=== PATIENT | male | born 1955 | race Caucasian/White ===

== ENCOUNTER 2020-03-19 12:10 | Inpatient (IN) ==
[2020-03-19] MEDS ORDERED: fentaNYL citrate 100 MCG/2 ML VIAL IV STA (12:26)
[2020-03-19] MEDS ORDERED: SODIUM CHLORIDE 0.9% 1000ML 1,000 ML IV ONE (12:26)
[2020-03-19] MEDS ORDERED: NiCARDipine HCL INJ 2.5 MG/ML 10 ML AMP ONE (12:27)
[2020-03-19] MEDS ORDERED: HEPARIN (PORCINE) 1000 UNIT/ML 10 ML (CATH LAB USE ONLY) ONE ×2 (12:27→13:18)
[2020-03-19] MEDS ORDERED: fentaNYL citrate 100 MCG/2 ML VIAL ONE ×2 (12:27)
[2020-03-19] MEDS ORDERED: MIDAZOLAM HCL 1 MG/ML 2ML VIAL ONE ×3 (12:27→13:55)
[2020-03-19] MEDS ORDERED: NITROGLYCERIN/D5W 100MCG/ML 20ML SYR ONE (12:28)
--- NOTE | 2020-03-19 12:30 | Emergency Department Note ---
Impression & Plan STEMI (ST elevation myocardial infarction), Complete heart block ED Provider Note NAME: DELORIS COREA AGE: 65 SEX: M : 1955 ARRIVES VIA: Walk-In INFORMANT: Patient ED PROVIDER(S): Feliciano Hall DO CHIEF COMPLAINT: Chest pain HPI:Patient is a 65-year-old male who presents the ER for chest pain which started around 11:45 AM. He recently got home and was sitting on his couch. He describes it as midsternal associated with pressure/tightness. He was short of breath. There is no radiation. No belly pain. Denies any cough or fevers. He has never had any exertional chest pain before. He does have a history of hypertension and is a smoker. He is set to get an endoscopy tomorrow. No exposure to anyone with coronavirus. ROS: See above HPI for pertinent positives & negatives. A total of 10 systems reviewed and were otherwise negative. PAST MEDICAL HISTORY:See Below PAST SURGICAL HISTORY:See Below FAMILY HISTORY:See Below SOCIAL HISTORY:See Below HOME MEDICATIONS:See Below ALLERGIES:See Below VITALS:See Below PHYSICAL EXAMINATION: GENERAL: Ill appearing, diaphoretic EYE EXAM: normal conjunctiva. OROPHARYNX: mucous membranes are moist NECK: supple, no nuchal rigidity, no adenopathy, non-tender LUNGS: Clear to auscultation. Normal chest wall mechanics HEART: no murmurs, S1 normal and S2 normal ABDOMEN: abdomen soft, non-tender, normo-active bowel sounds, no masses, no rebound or guarding. BACK: Back is symmetrical on inspection and there is no deformity, no midline tenderness, no CVA tenderness. SKIN: no rashes and no bruising UPPER EXTREMITIES: upper extremities are grossly normal. LOWER EXTREMITIES: No pitting edema. NEURO EXAM: Normal sensorium, cranial nerves II-XII grossly intact, normal speech, no gross weakness of arms, no gross weakness of legs. MEDICAL DECISION MAKING: Patient is a 65-year-old male who presents the ER for midsternal chest tightness. He was diaphoretic on exam. Initial EKG showed ST depressions and nonspecific ST wave changes. Repeat was obtained 5 minutes later which showed a STEMI. He had very taken 2 aspirins prior to arrival.Blood pressure was about 100. STEMIAlert was called. banana handler was at bedside and at this point patient dropped his pressures and went into third-degree heart block. He was placed on dopamine. He was taken emergently to [facility]. We did give him a bolus of normal saline while in the ER. He did not receive any nitro or fentanyl. Triage Nursing notes reviewed. Prior medical records reviewed Vital Signs: reviewed and remarkable for no significant abnormalities Differential diagnosis: Differential diagnoses includes but is not limited to acute coronary syndrome, myocardial infarction, pericarditis, pulmonary embolus, aortic dissection, pneumonia, pneumothorax, musculoskeletal, shingles, esophageal. ER treatment provided: See below Diagnostics interpreted by me: ECG: Sinus rhythm rate of [address] wave changes in the inferior leads with ST depression in high lateral leads No PVCs Normal QTC EKG #2 Sinus rhythm rate of 64 ST segment elevation in the inferior leads with depression in the high lateral leads PVC Normal QTC Cardiac Monitoring: An order was placed for continuous cardiac monitoring. The monitor shows a rate of 54 with Sinus rhythm. Laboratory studies: As stated above and show below. Imaging studies: Portable AP upright 1 view of the chest shows no focal infiltrate or pneumothorax Consultation(s): D/w Dr. Waqar Etienne ED COURSE: Procedures: none Critical Care: I have personally spent 31 minutes of critical care time in the direct managem ent of this patient. This includes bedside care, interpretation of diagnostic studies, and testing, discussion with consultants, patient, and family members, and other required patient management activities. This 31 minutes is in excess of all separately billable procedures. Past Med/Surg History Medical History (Updated 03/19/20 @ 18:24 by Feliciano Hall DO) Cataract, bilateral Cirrhosis Current smoker (Acute) Dyslipidemia (Acute) Hepatitis C Hypertension Psoriasis Thrombocytopenia Surgical History (Updated 10/04/19 @ 08:24 by Arpit Alvarado DO) History of cataract surgery History of tonsillectomy History of tooth extraction wisdom teeth Social History (Updated 10/20/19 @ 08:49 by Anitra Foster) Preferred Language: Belarusian Communication Ability: Effective Visual Impairment: Diminished Hearing Ability: Normal Mulcher Operator Required: No Beliefs That Will Affect Care: None marital status: Single Current Living Situation: Significant Other Current Living Situation Comment: lives with s/o current occupational status: retired Other Information That Helps Us Care for You: No Feels Safe at Home: Yes Safety Concerns: Feels Safe At This Time Smoking Status: Current every day smoker Tobacco Type: cigarettes ; Cigarettes Per Day: 10 ; Second Hand Exposure: No ; Tobacco Cessation Education Requested by Patient: No Hx Alcohol Use: Yes Alcohol type: beer Hx Substance Use: No Childhood Exposure to Second-Hand Smoke: No caffeine: Yes Dental Care, Regularly: No Physical Activity Frequency: Daily Seatbelt Use: always Sunscreen Use: No Allergies Allergies Allergy/AdvReac Type Severity Reaction Status Date / Time amoxicillin Allergy Mild Rash Verified 02/10/20 09:01 doxycycline Allergy Mild Rash Verified 02/10/20 09:01 Home Meds Home Medications Medication Instructions Recorded Confirmed triamcinolone acetonide 0.5 % 1 appln TOP BID PRN gm 02/10/20 topical cream Previous Rx's Medication Instructions Recorded amlodipine 10 mg tablet 10 mg PO DAILY #90 tab 08/22/19 albuterol sulfate 90 mcg/actuation 2 puffs INH QID PRN #18 gm 10/04/19 aerosol inhaler lisinopril 20 1 tab PO DAILY #90 tab 10/04/19 mg-hydrochlorothiazide 25 mg tablet cholecalciferol (vitamin D3) 1,250 1,250 mcg PO WEEKLY #13 cap 10/24/19 mcg (50,000 unit) capsule lisinopril 10 mg tablet 10 mg PO DAILY #30 tab 02/10/20 Results & Data (ED) Vital Signs Vital Signs - 24 hr 03/19/20 12:12 03/19/20 12:30 Temperature 36.8 C Temperature Source Oral Pulse Rate 70 Respiratory Rate 24 Respiratory Effort / Characteristics Non-Labored Spontaneous Respiratory Depth Normal Respiratory Pattern Regular Blood Pressure 102/63 Blood Pressure Mean 76 Pulse Oximetry 99 99 Oxygen Delivery Method Room Air Room Air Sepsis Recent Fever Within 48 Hours No Sepsis Action Taken by Nursing No Action Required Laboratory Data Result diagrams: 03/19/20 12:21 03/19/20 12:21 Lab Results 03/19/20 03/19/20 03/19/20 Range/Units 12:21 12:21 12:21 WBC 9.43 (4.8-10.8) K/uL RBC 4.40 L (4.7-6.1) M/uL Hgb 15.2 (14.0-18.0) g/dL POC Hgb (14.0-18.0) g/dl Hct 43.4 (42-52) % POC Hct (42-52) % MCV 98.6 (80-100) fL MCH 34.5 H (25-34) pg MCHC 35.0 (32-36) g/dL RDW Std Deviation 46.9 H (36.4-46.3) fL RDW Coeff of Cj 13.0 (11.5-14.5) % Plt Count 267 (130-400) K/uL MPV 9.7 (7.4-10.4) fL Immature Gran % (Auto) 0.4 % Neut % (Auto) 54.6 % Lymph % (Auto) 29.8 % [place] % (Auto) 12.5 % Eos % (Auto) 2.2 % Baso % (Auto) 0.5 % Neut # (Auto) 5.14 (1.4-6.5) K/uL Lymph # (Auto) 2.81 (1.2-3.4) K/uL [place] # (Auto) 1.18 H (0.11-0.59) K/uL Eos # (Auto) 0.21 (0-0.5) K/uL Baso # (Auto) 0.05 (0-0.2) K/uL Immature Gran # (Auto) 0.04 H (0.00-0.02) K/uL PT 11.2 (9.0-12.0) Seconds INR 1.1 (0.9-1.1) APTT 22.5 (21.0-31.0) Seconds PTT Ratio 0.8 Activ Coag Time Kaolin (94-140) SECONDS POC pH (7.35-7.45) POC pCO2 (35-46) mmHg POC pO2 (80-95) mmHg POC HCO3 (19-24) usha/L POC Total CO2 (24-31) mmol/L POC Base Excess (-9-1.8) usha/L POC ABG O2 Sat (90-95) % POC Sodium (135-144) mmol/L Sodium 133 L (136-145) mmol/L POC Potassium (3.3-5.0) mmol/L Potassium 3.1 L (3.5-5.1) mmol/L Chloride 100 (98-107) mmol/L Carbon Dioxide 22 (21-32) mmol/L Anion Gap 11.0 (3-11) BUN 9 (7-18) mg/dl Creatinine 0.95 (0.6-1.4) mg/dl Est Cr Clr Drug Dosing 80.4 ml/min Est GFR ( Amer) 95.6 Est GFR (Non-Af Amer) 82.5 BUN/Creatinine Ratio 9.9 L (10-20) Glucose 132 H (70-99) mg/dl Calcium 9.4 (8.5-10.1) mg/dl Total Bilirubin 0.9 (0.2-1) mg/dl AST 80 H (15-37) U/L ALT 71 (12-78) U/L Alkaline Phosphatase 139 H (45-117) U/L Troponin I 0.068 H* (0-0.045) ng/ml Total Protein 8.1 (6.4-8.2) gm/dl Albumin 3.7 (3.4-5.0) gm/dl Globulin 4.4 H (2.5-4.0) gm/dl Albumin/Globulin Ratio 0.8 L (0.9-2) Lipase 107 (73-393) U/L 03/19/20 03/19/20 03/19/20 Range/Units 13:14 13:16 13:45 WBC (4.8-10.8) K/uL RBC (4.7-6.1) M/uL Hgb (14.0-18.0) g/dL POC Hgb 13.9 L (14.0-18.0) g/dl Hct (42-52) % POC Hct 41 L (42-52) % MCV (80-100) fL MCH (25-34) pg MCHC (32-36) g/dL RDW Std Deviation (36.4-46.3) fL RDW Coeff of Cj (11.5-14.5) % Plt Count (130-400) K/uL MPV (7.4-10.4) fL Immature Gran % (Auto) % Neut % (Auto) % Lymph % (Auto) % [place] % (Auto) % Eos % (Auto) % Baso % (Auto) % Neut # (Auto) (1.4-6.5) K/uL Lymph # (Auto) (1.2-3.4) K/uL [place] # (Auto) (0.11-0.59) K/uL Eos # (Auto) (0-0.5) K/uL Baso # (Auto) (0-0.2) K/uL Immature Gran # (Auto) (0.00-0.02) K/uL PT (9.0-12.0) Seconds INR (0.9-1.1) APTT (21.0-31.0) Seconds PTT Ratio Activ Coag Time Kaolin 224 H 307 H (94-140) SECONDS POC pH 7.41 (7.35-7.45) POC pCO2 32 L (35-46) mmHg POC pO2 159 H (80-95) mmHg POC HCO3 21 (19-24) usha/L POC Total CO2 22 L (24-31) mmol/L POC Base Excess -4.0 (-9-1.8) usha/L POC ABG O2 Sat 99.0 H (90-95) % POC Sodium 131 L (135-144) mmol/L Sodium (136-145) mmol/L POC Potassium 2.6 L (3.3-5.0) mmol/L Potassium (3.5-5.1) mmol/L Chloride (98-107) mmol/L Carbon Dioxide (21-32) mmol/L Anion Gap (3-11) BUN (7-18) mg/dl Creatinine (0.6-1.4) mg/dl Est Cr Clr Drug Dosing ml/min Est GFR ( Amer) Est GFR (Non-Af Amer) BUN/Creatinine Ratio (10-20) Glucose (70-99) mg/dl Calcium (8.5-10.1) mg/dl Total Bilirubin (0.2-1) mg/dl AST (15-37) U/L ALT (12-78) U/L Alkaline Phosphatase (45-117) U/L Troponin I (0-0.045) ng/ml Total Protein (6.4-8.2) gm/dl Albumin (3.4-5.0) gm/dl Globulin (2.5-4.0) gm/dl Albumin/Globulin Ratio (0.9-2) Lipase (73-393) U/L Administered Medications Sodium Chloride (Nss 1000ml) 1,000 mls @ 100 mls/hr IV .Q10H ELIZABET Stop: 03/20/20 00:59 Last Admin: 03/19/20 16:43 Dose: 100 mls/hr Documented by: [id number] Discontinued Medications Amiodarone HCl/Dextrose (Nexterone / D5w ([facility] Use Only)) Confirm Administered Dose 360 mg .ROUTE .STK-MED ONE Stop: 03/19/20 13:46 Last Admin: 03/19/20 16:40 Dose: Not Given Documented by: [id number] Amiodarone HCl/Dextrose (Nexterone / D5w ([facility] Use Only)) Confirm Administered Dose 150 mg .ROUTE .STK-MED ONE Stop: 03/19/20 13:46 Last Admin: 03/19/20 16:40 Dose: Not Given Documented by: [id number] Atropine Sulfate (Atropine Sulfate) Confirm Administered Dose 1 mg IV .STK-MED ONE Stop: 03/19/20 12:48 Last Admin: 03/19/20 16:39 Dose: Not Given Documented by: [id number] Dopamine HCl/Dextrose (Dopamine / D5w) Confirm Administered Dose 400 mg IV .STK- MED ONE Stop: 03/19/20 12:34 Last Admin: 03/19/20 16:39 Dose: Not Given Documented by: [id number] Eptifibatide (Integrilin ([facility] Use Only)) Confirm Administered Dose 20 mg IV .STK-MED ONE Stop: 03/19/20 13:22 Last Admin: 03/19/20 16:40 Dose: Not Given Documented by: [id number] Eptifibatide (Integrilin ([facility] Use Only)) Confirm Administered Dose 75 mg .ROUTE .STK-MED ONE Stop: 03/19/20 13:22 Last Admin: 03/19/20 16:40 Dose: Not Given Documented by: [id number] Fentanyl Citrate (Fentanyl Citrate) 25 mcg IV NOW STA Stop: 03/19/20 12:27 Last Admin: 03/19/20 12:44 Dose: Not Given Documented by: [id number] Fentanyl Citrate (Fentanyl Citrate) Confirm Administered Dose 100 mcg .ROUTE .STK-MED ONE Stop: 03/19/20 12:28 Last Admin: 03/19/20 16:38 Dose: Not Given Documented by: [id number] Fentanyl Citrate (Fentanyl Citrate) Confirm Administered Dose 100 mcg .ROUTE .STK-MED ONE Stop: 03/19/20 12:28 Last Admin: 03/19/20 16:39 Dose: Not Given Documented by: [id number] Heparin Sodium (Porcine) (Heparin Iv Bolus ([facility] Use Only)) Confirm Administered Dose 10,000 units .ROUTE .STK-MED ONE Stop: 03/19/20 12:28 Last Admin: 03/19/20 16:39 Dose: Not Given Documented by: [id number] Heparin Sodium (Porcine) (Heparin Iv Bolus ([facility] Use Only)) Confirm Administered Dose 10,000 units .ROUTE .STK-MED ONE Stop: 03/19/20 13:19 Last Admin: 03/19/20 16:40 Dose: Not Given Documented by: [id number] Heparin Sodium/Sodium Chloride (Heparin/Nss 1000 Unit/500ml Flush Bag) Confirm Administered Dose 3,000 units IV .STK-MED ONE Stop: 03/19/20 12:28 Last Admin: 03/19/20 16:39 Dose: Not Given Documented by: [id number] Sodium Chloride (Nss 1000ml) 1,000 mls @ 999 mls/hr IV .Q1H1M ONE Stop: 03/19/20 13:26 Last Infusion: 03/19/20 16:48 Dose: 0 mls/hr Documented by: [id number] Admin: 03/19/20 12:44 Dose: 999 mls/hr Documented by: [id number] Midazolam HCl (Versed) Confirm Administered Dose 2 mg .ROUTE .STK-MED ONE Stop: 03/19/20 12:28 Last Admin: 03/19/20 16:39 Dose: Not Given Documented by: [id number] Midazolam HCl (Versed) Confirm Administered Dose 2 mg .ROUTE .STK-MED ONE Stop: 03/19/20 13:40 Last Admin: 03/19/20 16:40 Dose: Not Given Documented by: [id number] Midazolam HCl (Versed) Confirm Administered Dose 2 mg .ROUTE .STK-MED ONE Stop: 03/19/20 13:56 Last Admin: 03/19/20 16:40 Dose: Not Given Documented by: [id number] Nicardipine HCl (Cardene) Confirm Administered Dose 25 mg .ROUTE .STK-MED ONE Stop: 03/19/20 12:28 Last Admin: 03/19/20 16:38 Dose: Not Given Documented by: [id number] Nitroglycerin/Dextrose (Nitroglycerin/D5w 100 Mcg/Ml 20ml Syringe) Confirm Administered Dose 2,000 mcg .ROUTE .STK-MED ONE Stop: 03/19/20 12:29 Last Admin: 03/19/20 16:39 Dose: Not Given Documented by: [id number] Norepinephrine Bitartrate (Levophed ([facility] Use Only)) Confirm Administered Dose 8 mg .ROUTE .STK-MED ONE Stop: 03/19/20 13:57 Last Admin: 03/19/20 16:41 Dose: Not Given Documented by: [id number] Norepinephrine Bitartrate (Levophed ([facility] Use Only)) Confirm Administered Dose 4 mg .ROUTE .STK-MED ONE Stop: 03/19/20 13:57 Last Admin: 03/19/20 16:41 Dose: Not Given Documented by: [id number] Ondansetron HCl (Zofran) Confirm Administered Dose 4 mg .ROUTE .STK-MED ONE Stop: 03/19/20 12:48 Last Admin: 03/19/20 16:40 Dose: Not Given Documented by: [id number] Ticagrelor (Brilinta) Confirm Administered Dose 180 mg PO .STK-MED ONE Stop: 03/19/20 14:40 Last Admin: 03/19/20 16:43 Dose: 180 mg Documented by: [id number] Discharge Plan Visit Data *Final* Discharge Date/Time: 03/19/20 12:38 Chief Complaint: Cardiac Assessment Stated Complaint: CHEST PAIN,SWEATING,WEAKNESS,SOB ED Provider: Feliciano Hall Discharge Problem: STEMI (ST elevation myocardial infarction), Complete heart block Patient Disposition: Still a Patient Discharge Instructions Interventions: ED Discharge Assessment Last Done: 03/19/20 12:38 Discharge Problem: STEMI (ST elevation myocardial infarction) Qualifiers: Involved coronary artery: unspecified coronary artery Qualified Code(s): I21.3 - ST elevation (STEMI) myocardial infarction of unspecified site
[2020-03-19] MEDS ORDERED: DOPamine 400MG / 250ML D5W IV ONE (12:33)
[2020-03-19 12:42] LABS: Basophils # (auto) 0.05 K/uL (0-0.2); Basophils % (auto) 0.5 %; Eosinophils # (auto) 0.21 K/uL (0-0.5); Eosinophils % (auto) 2.2 %; Hematocrit (blood only) 43.4 % (42-52); Hemoglobin 15.2 g/dL (14.0-18.0); Immature Granulocytes # (auto) 0.04 K/uL (0.00-0.02); Immature Granulocytes % (auto) 0.4 %; Lymphocytes # (auto) 2.81 K/uL (1.2-3.4); Lymphocytes % (auto) 29.8 %; Mean Corpuscular Hemoglobin 34.5 pg (25-34); Mean Corpuscular Volume 98.6 fL (80-100); Mean Platelet Volume 9.7 fL (7.4-10.4); Monocytes # (auto) 1.18 K/uL (0.11-0.59); Monocytes % (auto) 12.5 %; Neutrophils # (auto) 5.14 K/uL (1.4-6.5); Neutrophils % (auto) 54.6 %; Platelet Count 267 K/uL (130-400); RDW Standard Deviation 46.9 fL (36.4-46.3); White Blood Count 9.43 K/uL (4.8-10.8)
[2020-03-19] MEDS ORDERED: ONDANSETRON INJ 2 MG/ML 2 ML VIAL ONE (12:47)
[2020-03-19] MEDS ORDERED: ATROPINE SULFATE 0.1 MG/ML 10ML SYR IV ONE (12:47)
[2020-03-19 12:52] LABS: INR 1.1 (0.9-1.1); Partial Thromboplastin Ratio 0.8; Partial Thromboplastin Time 22.5 Seconds (21.0-31.0); Prothrombin Time 11.2 Seconds (9.0-12.0)
[2020-03-19 13:00] LABS: Albumin Level 3.7 gm/dl (3.4-5.0); BUN Creatinine Ratio 9.9 (10-20); Calcium 9.4 mg/dl (8.5-10.1); Creatinine Clr Calc Pharmacy 80.4 ml/min; Est GFR (African American) 95.6; Est GFR (Non-African American) 82.5; Potassium 3.1 mmol/L (3.5-5.1)
--- NOTE | 2020-03-19 13:03 | XRay Report ---
XR chest 1V portable CLINICAL HISTORY: Chest Pain COMPARISON STUDY: Chest radiograph and chest CT September 04, 2018. FINDINGS: Lung volumes are normal. Lungs are clear. There is no pneumothorax or pleural effusion. Car diac size is stable. Mediastinal contours are normal. There is no evidence for pulmonary edema. IMPRESSION: No acute cardiopulmonary findings. ACT 112: Negative or not required by law. Electronically signed by: Herman King M.D. 03/19/2020 1:02 PM
[2020-03-19 13:11] LABS: Albumin Globulin Ratio 0.8 (0.9-2); Bilirubin,Total 0.9 mg/dl (0.2-1); Globulin 4.4 gm/dl (2.5-4.0); Total Protein 8.1 gm/dl (6.4-8.2); Troponin I 0.068 ng/ml (0-0.045)
[2020-03-19] MEDS ORDERED: EPTIFIBATIDE 0.75 MG/ML 75MG VIAL (CATH LAB USE ONLY) ONE (13:21)
[2020-03-19] MEDS ORDERED: EPTIFIBATIDE 2 MG/ML 10 ML VIAL (CATH LAB USE ONLY) IV ONE (13:21)
[2020-03-19] MEDS ORDERED: AMIODARONE 150MG / 100ML D5W (CATH LAB USE ONLY) ONE (13:45)
[2020-03-19] MEDS ORDERED: AMIODARONE 360MG / 200ML D5W (CATH LAB USE ONLY) ONE (13:45)
[2020-03-19] MEDS ORDERED: NOREPINEPHRINE BITARTRATE 1 MG/ML 4 ML VIAL (CATH LAB USE ONLY) ONE ×2 (13:56)
[2020-03-19] MEDS ORDERED: TICAGRELOR 90 MG TAB PO ONE (14:39)
--- NOTE | 2020-03-19 14:43 | Cardiology Consultation ---
Date of Consultation March 19, 2020 Assessment & Plan (1) STEMI (ST elevation myocardial infarction): Presentation consistent with inferior STEMI and recommend proceeding with emergent cardiac catheterization and likely primary PCI. No apparent contraindications to procedure. Discussed risks, benefits, alternatives of procedure with patient and they are willing to proceed. Further recommendations pending findings of coronary angiography. History of Present Illness Attending Physician: Jose Etienne MD History of Present Illness 65-year-old man here with acute chest pain and ECG concerning for acute WI. Patient seen emergently in the ED after heart alert activated after second EKG in ED. Past cardiac history.. Cardiac risk factors include hypertension, dyslipidemia and tobacco abuse. Other medical issues include chronic hepatitis C with cirrhosis and prior thrombocytopenia. This morning reported feeling generally unwell, fatigued with chest tightness for about half an hour prior to arrival. While emergency department chest tightness became significantly worse associated with diaphoresis and nausea initial EKG showed normal sinus rhythm with no significant ST abnormalities. With worsening chest pain developed inferior ST elevations. Became developed sinus bradycardia and hypotensive to the 70s. Receive IV fluid bolus, started on dopamine in the ED. Allergies Allergy/AdvReac Type Severity Reaction Status Date / Time amoxicillin Allergy Mild Rash Verified 02/10/20 09:01 doxycycline Allergy Mild Rash Verified 02/10/20 09:01 Home Medications Home Medications Medication Instructions Recorded Confirmed Type amlodipine 10 mg tablet 10 mg PO DAILY #90 tab 08/22/19 02/10/20 Rx albuterol sulfate 90 mcg/actuation 2 puffs INH QID PRN #18 gm 10/04/19 02/10/20 Rx aerosol inhaler lisinopril 20 1 tab PO DAILY #90 tab 10/04/19 02/10/20 Rx mg-hydrochlorothiazide 25 mg tablet cholecalciferol (vitamin D3) 1,250 1,250 mcg PO WEEKLY #13 cap 10/24/19 02/10/20 Rx mcg (50,000 unit) capsule lisinopril 10 mg tablet 10 mg PO DAILY #30 tab 02/10/20 02/10/20 Rx triamcinolone acetonide 0.5 % 1 appln TOP BID PRN gm 02/10/20 History topical cream Patient History Medical History (Updated 03/19/20 @ 15:00 by Michael Etienne MD) Cataract, bilateral Cirrhosis Current smoker (Acute) Dyslipidemia (Acute) Hepatitis C Hypertension Psoriasis Thrombocytopenia Surgical History (Updated 10/04/19 @ 08:24 by Arpit Alvarado, DO) History of cataract surgery History of tonsillectomy History of tooth extraction wisdom teeth Social History (Updated 10/20/19 @ 08:49 by Anitra Foster) Preferred Language: Sinhala Communication Ability: Effective Visual Impairment: Diminished Hearing Ability: Normal 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 Required: No Beliefs That Will Affect Care: None marital status: Single Current Living Situation: Significant Other Current Living Situation Comment: lives with s/o current occupational status: retired Feels Safe at Home: Yes Smoking Status: Current every day smoker Tobacco Type: cigarettes ; Cigarettes Per Day: 10 ; Second Hand Exposure: No ; Hx Alcohol Use: Yes Alcohol type: beer Hx Substance Use: No Childhood Exposure to Second-Hand Smoke: No caffeine: Yes Dental Care, Regularly: No Physical Activity Frequency: Daily Seatbelt Use: always Sunscreen Use: No Review of Systems Review of Systems: Not obtained in the setting of emergent situation Physical Exam Physical Exam: General: Uncomfortable, diaphoretic HEENT: Sclerae anicteric, mucous membranes moist Lungs: Coarse breath sounds Cardiac: Bradycardic, regular, no murmurs Abdomen: Soft, nontende Extremities: Warm, well perfused, no edema. 2+ radial pulses Neuro: Nonfocal Psych: Alert orient x3, normal affect and mood Results & Data ([facility]) Vital Signs (Past 12 Hours) Vital Signs Temp Pulse Resp BP Pulse Ox 03/19/20 12:30 99 03/19/20 12:12 98.2 F 70 24 102/63 99 PG Care Time/CCT Total # of Minutes Spent Total Time Spent with Patient: Total time spent is greater than 50% in coordination of care (as documented) at patient's floor/unit and/or counseling patient: Coding Level of Care Code 03750 Inpt Consult Level 5 Diagnoses STEMI (ST elevation myocardial infarction) I21.3
--- NOTE | 2020-03-19 14:43 | Pre Anesthesia Assessment ---
Date of Service March 19, 2020 Pre Sedation Assessment Vital Signs Temp Pulse Resp BP Pulse Ox 03/19/20 12:30 99 03/19/20 12:12 98.2 F 70 24 102/63 99 Cardiovascular RRR, no murmur, no edema Respiratory normal respiratory effort, lungs clear to auscultation Pre-Sedation Airway Assessment Smoking Status: Current every day smoker Hx Sleep Apnea: No Hx Difficult Intubation: No Short, Thick Neck: No Thyromental Distance: > or= 3.5 Finger Breadths Oral Cavity: + WNL Mallampati Class: III ASA: ASA4 Procedure Planning Contraindications for Sedation: none Current Medications Reviewed: Yes Notes The planned sedation has been discussed with the patient. Informed Consent was obtained. I have identified the patient, determined the appropriateness of sedation and have assessed the patient immediately prior to the procedure. All medicine(s) and interventions are by my order.
--- NOTE | 2020-03-19 14:44 | Post Anesthesia Assessment ---
Date of Service March 19, 2020 Post Sedation Assessment Vital Signs Temp Pulse Resp BP Pulse Ox 03/19/20 12:30 99 03/19/20 12:12 98.2 F 70 24 102/63 99 Recovery Score Activity: Moves 4 extremities Respiration: Deep Breath/Cough Circulation: +/-20% PreAnes Value Consciousness: Fully Awake Oxygen Saturation: O2 needed for >90% Discharge Sedation Level of Care: Fast Track Phase II Post Sedation Plan On clinical assessment, the patient appears to have tolerated the sedation without complications. Patient is recovering as anticipated. Patient will continue to be monitored by nursing and may be discharged when sedation discharge criteria are met per below protocol. Upon Completions of procedure up to 15 minutes continue every 5 minute vital signs and the P.A.R. score; then discharge to a Phase I or Fast Track to Phase II per the following guidelines: * Discharge Patient to appropriate Phase II area if PAR is 8 or greater or return to pre- procedure baseline. The post - procedure orders will be as directed. * If PAR score is less than 8 or not return to pre-procedure baseline then patient will follow Phase I monitoring till PAR is reached for Phase II. The Phase I may be done in procedure room or may call to secure a Phase I area. * If naloxone or flumazenil are used for reversal, hold in Phase I for continued monitoring from when last reversal dose was given for a minimum of 60 minutes or longer pending the nurse and/or physician discretion of patient condition before discharge to Phase II. Please call the Sedation Physician to re-evaluate and complete post-note for discharge to Phase II area. Do NOT discharge from procedure sedation or Phase 1 until post- sedation evaluation note is complete by procedure /sedation MD Sedation Discharge Instructions to be given to the patient at discharge to home.
[2020-03-19] MEDS ORDERED: ACETAMINOPHEN 325 MG TAB PO PRN (14:48)
[2020-03-19] MEDS ORDERED: ATROPINE SULFATE 0.1 MG/ML 10ML SYR IV PRN (14:48)
[2020-03-19] MEDS ORDERED: ONDANSETRON INJ 2 MG/ML 2 ML VIAL IV PRN (14:48)
[2020-03-19] MEDS ORDERED: NITROGLYCERIN SL 0.4 MG/TAB TAB SL PRN (14:48)
[2020-03-19] MEDS ORDERED: ICU PROTOCOL FOR HYPERGLYCEMIA PRN ×2 (14:48→15:07)
--- NOTE | 2020-03-19 14:53 | Electrocardiogram Report ---
Test Reason : Blood Pressure : / mmHG Vent. Rate : 064 BPM Atrial Rate : 064 BPM P-R Int : 256 ms QRS Dur : 094 ms QT Int : 438 ms P-R-T Axes : 047 051 078 degrees QTc Int : 451 ms Poor data quality, interpretation may be adversely affected Sinus rhythm with 1st degree A-V block with occasional Premature ventricular complexes Inferior injury pattern Acute Inferior infarct Consider right ventricular involvement in acute inferior infarct Abnormal ECG When compared with ECG of 19-MAR-2020 12:17, Premature ventricular complexes are now Present [place] interval has increased Acute Inferior infarct is now Present Confirmed by Adalid Oconnor ([id number]) on 03/20/2020 7:55:15 AM Also confirmed by Adalid Oconnor ([id number]), clinical editor Elham Garrido ([id number]) on 03/20/2020 8:45:41 AM Also confirmed by Adalid Oconnor ([id number]), clinical editor Elham Garrido ([id number]) on 03/20/2020 8:46:59 AM Referred By: Michael Etienne Confirmed By:Adalid Oconnor
[2020-03-19] MEDS ORDERED: SODIUM CHLORIDE 0.9% 1000ML 1,000 ML IV SCH (15:00)
[2020-03-19 15:02] LABS: iSTAT Arterial Blood Gas HCO3 21 meg/L (19-24); iSTAT Arterial Blood Gas pCO2 32 mmHg (35-46); iSTAT Arterial Blood Gas pH 7.41 (7.35-7.45); iSTAT Arterial Blood Gas pO2 159 mmHg (80-95); iSTAT Carbon Dioxide 22 mmol/L (24-31); iSTAT Hematocrit 41 % (42-52); iSTAT Hemoglobin 13.9 g/dl (14.0-18.0); iSTAT Potassium 2.6 mmol/L (3.3-5.0); iSTAT Sodium 131 mmol/L (135-144)
--- NOTE | 2020-03-19 15:10 | History & Physical Report ---
Date of Service The left groin access was on the left not right as documented below March 19, 2020 Assessment & Plan (1) STEMI (ST elevation myocardial infarction): Patient presented with acute chest pain ST elevations were noted in the inferior leads, patient taken to the heart catheterization lab where he had stent placement in the right coronary artery x2 with drug-eluting stents as mentioned in the HPI complicated by nonsustained V. tach requiring amiodarone bolus aspirin and Brilinta were initiated as well as beta-jurgen therapy and statin therapy (2) Cirrhosis: Cirrhosis felt secondary to hepatitis C diagnosis made in 2019 patient seen by [facility] further work-up was undertaken counseled to avoid alcohol liver toxins and sharing things that could involve body fluids including toothbrushes razors protective sex was begun on treatment of MAVYRET for 8 weeks should have been initiated sometime after December 2019 however this is pending insurance approval Patient has thrombocytopenia listed in his history his platelet count was appropriate at the time of catheterization is unclear whether this is a result of his liver disease (3) Hypertension: Patient had will have his lisinopril reduced to 5 and metoprolol begun. His amlodipine will be held in favor of the beta-jurgen therapy (4) Current smoker: Patient be given counseling for smoking cessation and offered a nicotine patch (5) DVT prophylaxis: Lovenox therapy was added for DVT prevention History of Present Illness Primary Care Provider: Arpit Alvarado, 65-year-old male presents to the ER for chest pain which started at 11:45 AM on 03/19/2020 at rest. In the ER he was found to have acute inferior wall IN he developed transient heart block was taken emergently to the heart catheterization laboratory where he had to drug-eluting stents placed in the right coronary artery which was heavily calcified and almost completely occluded. 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 tach requiring an bolus of amiodarone and some hypotension requiring some norepinephrine. Patient also had access issues where his right wrist was initially accessed but the procedure cannot be performed through this artery and subsequently had his groin access. Patient was transferred to the ICU in stable condition with Brilinta and aspirin tapering off Integrilin and after I spoke with Dr. Etienne the rn integrated no additional amiodarone would be required. Subsequently Dr. Etienne also started beta-jurgen therapy reduce his lisinopril from 10-5 and initiated statin therapy with atorvastatin Allergies Allergy/AdvReac Type Severity Reaction Status Date / Time amoxicillin Allergy Mild Rash Verified 02/10/20 09:01 doxycycline Allergy Mild Rash Verified 02/10/20 09:01 Home Medications Home Medications Medication Instructions Recorded Confirmed Type amlodipine 10 mg tablet 10 mg PO DAILY #90 tab 08/22/19 02/10/20 Rx albuterol sulfate 90 mcg/actuation 2 puffs INH QID PRN #18 gm 10/04/19 02/10/20 Rx aerosol inhaler lisinopril 20 1 tab PO DAILY #90 tab 10/04/19 02/10/20 Rx mg-hydrochlorothiazide 25 mg tablet cholecalciferol (vitamin D3) 1,250 1,250 mcg PO WEEKLY #13 cap 10/24/19 02/10/20 Rx mcg (50,000 unit) capsule lisinopril 10 mg tablet 10 mg PO DAILY #30 tab 02/10/20 02/10/20 Rx triamcinolone acetonide 0.5 % 1 appln TOP BID PRN gm 02/10/20 History topical cream Past Med/Surg History Medical History (Updated 03/19/20 @ 15:09 by Lopez Orellana MD) Cataract, bilateral Cirrhosis Current smoker (Acute) Dyslipidemia (Acute) Hepatitis C Hypertension Psoriasis Thrombocytopenia Surgical History (Updated 10/04/19 @ 08:24 by Arpit Alvarado DO) History of cataract surgery History of tonsillectomy History of tooth extraction wisdom teeth Social History (Updated 10/20/19 @ 08:49 by Anitra Foster) Preferred Language: [place] Islander Communication Ability: Effective Visual Impairment: Diminished Hearing Ability: Normal Account Installation Specialist Required: No Beliefs That Will Affect Care: None marital status: Single Current Living Situation: Significant Other Current Living Situation Comment: lives with s/o current occupational status: retired Feels Safe at Home: Yes Smoking Status: Current every day smoker Tobacco Type: cigarettes ; Cigarettes Per Day: 10 ; Second Hand Exposure: No ; Hx Alcohol Use: Yes Alcohol type: beer Hx Substance Use: No Childhood Exposure to Second-Hand Smoke: No caffeine: Yes Dental Care, Regularly: No Physical Activity Frequency: Daily Seatbelt Use: always Sunscreen Use: No Review of Systems Review of Systems: Mild distress and fatigue no headache, blurry or double vision no speech or swallowing issues no chest pain, pressure or palpitations no shortness of breath, cough or wheezes no abdominal pain, nausea or vomiting, diarrhea or constipation no dysuria, hematuria or frequency no focal joint pain or swelling no back pain, CVA tenderness or radicular pain no bruising, bleeding or rashes no focal signs of weakness or numbness or altered sensation no complaints or anxiety or depression. Physical Exam Physical Exam: The patient appeared well nourished and normally developed. Vital signs as documented. Head exam is normocephalic atraumatic no scleral icterus Neck is without JVD, thyromegaly, or carotid bruits. Lungs are clear to auscultation, no focal loss of breath sounds Cardiac exam, Rhythm is regular.. No murmurs, rubs or gallops. Abdominal exam reveals normal bowel sounds, soft non tender, no masses Extremities are nonedematous and both pedal pulses are normal. Neurologic exam is alert and oriented, no focal loss of strength or sensation Skin is without bruises or rashes Psychologically is without concerns for anxiety or depression Results & Data Results & Data ([facility]) Vital Signs (Past 12 Hours) Vital Signs Temp Pulse Resp BP Pulse Ox 03/19/20 12:30 99 03/19/20 12:12 98.2 F 70 24 102/63 99 Code Status & VTE Plan VTE Prophylaxis Plan VTE Prophylaxis will be ordered: Yes PG Care Time/CCT Total # of Minutes Spent Total Time Spent with Patient: Total time spent is greater than 50% in coordination of care (as documented) at patient's floor/unit and/or counseling patient: Coding Level of Care Code 82502 Initial Inpt Care Lvl 3 Diagnoses STEMI (ST elevation myocardial infarction) I21.3 Cirrhosis K74.60 Hypertension I10 Current smoker F17.200 DVT prophylaxis Z29.9
--- NOTE | 2020-03-19 15:17 | Cardiac Catheterization ---
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 Cardiac Status Clinical evaluation leading to the procedure CAD Presenation: STEMI Anginal Classification: CCS IV Heart Failure: No Cardiogenic Shock within 24 Hours: No Cardiac Arrest within 24 Hours: No Imaging Studies Past 6 Months: No Stress Studies Past 6 Months: No Diagnostic Physicians Name: Jose Etienne MD Status: Emergency Closure Device Percutaneous Entry Location: Radial Closure Device: Radial Band and StarClose Recommendations: PCI without planned CABG PCI Indication: Immediate PCI for STEMI Lesion Segment Name: mid RCA Culprit Artery: Yes Stenosis Prior to Rx (%): 99 Chronic Total Occlusion: No IVUS: No FFR: No Pre-Procedure LOCO Flow: 1 Previously Treated Lesion: No Lesion Complexity: High/C Lesion Length (mm): 15 Thrombus Present: Yes Bifurcation Lesion: No Guidewire Across Lesion: Stenosis Post-Procedure (%): 0 Post-Procedure LOCO Flow: 3 Devices(s) Deployed: Yes Yes Intraprocedure Events Significant Disection: No Perforation: No Cardiac Cath Procedure Full Procedure Date March 19, 2020 Pre-Procedure Diagnosis Pre-Procedure Diagnosis: STEMI AUC Score AUC Score: 9 Post-Procedure Diagnosis Post-Procedure Diagnosis: Severe CAD, Successful PCI and Normal Intracardiac Pressures Procedure(s) Performed Procedure(s) Performed: Coronary Angiography, Left Heart Cath, Drug Eluting Stent, Ultrasound Guided Vascular Access and Femoral Artery Angiography Flour Blender Jose Etienne MD Miniature Set Designer(s) Alonso Estimated Blood Loss Estimated Blood Loss: 20 Medication(s) Medication(s): Dopamine, Fentanyl, Heparin, Integrilin, Lidocaine 1%, Nicardipine, Norepinephrine and Versed Medication(s): Amiodarone Ticagrelor Summary of Findings Indication: STEMI/Heart Alert Access: 6 Fr slender right radial artery, 6 Fr left common femoral artery Catheters: Ikari left 3.5 guide, AR-1 guide, pigtail Findings: LM -calcified, luminal irregularities LAD -heavily calcified proximally, medium caliber, 20 to 30% diffuse mild disease from proximal to mid segment, distal vessel wraps around apex without significant disease. Small first and second diagonals without significant disease Circumflex -nondominant, small caliber, 30% mid segment. Gives off 3 obtuse marginal's without significant disease RCA -dominant, heavily calcified throughout, LOCO II flow, 99% mid segment stenosis, 95% latemid stenosis, mild diffuse distal disease. PDA, PLB widely patent. LVEDP -12 -- PCI -- Antithrombotic therapy: Heparin, Integrilin, ticagrelor Procedure: RCA cannulated with Ikari left 3.5 guide BMW wire passed across lesion into distal vessel Multiple attempts at passing 2.5, 2.0 and 1.5 balloon across mid RCA stenosis were unsuccessful despite additional support from guide liner. Patient had continued LOCO II flow but persistent ST elevations and chest pain was started on Integrilin. Left common femoral artery access obtained under ultrasound guidance (right AUTO BODY REPAIRER FIBERGLASS with severe heavily calcified disease, left AUTO BODY REPAIRER FIBERGLASS with moderate calcified disease) Moderate to severe common iliac stenosis on left crossed with a Glidewire RCA recannulated with AR-1 guide Mid RCA lesions crossed with long whisper wire With the aid of a guide liner mid RCA stenosis dilated with 1.5, 2.0 and 2.5 balloons Unable to pass balloon across latemid RCA stenosis Was able to eventually cross stenosis with the aid of a Corsair catheter Long whisper wire exchanged for mailman wire Latemid RCA stenosis dilated with 1.5 and 2.0 and 2.5 balloons Latemid RCA stenosis stented with 2.5 x 12 mm Kenneth drug-eluting stent Earlier mid RCA stenosis stented with 2.75 x 18 mm Kenneth drug-eluting stent Early mid RCA stent dilated with 3.0 NC balloon Latemid RCA stent dilated with 2.5 NC balloon Post procedure LOCO 3 flow, stent well expanded with minimal residual stenosis and no apparent cardiac complications. During procedure patient hypotensive requiring initially dopamine and IV fluid bolus On increased dopamine tachycardic with runs of nonsustained VT. Received 1 bolus of IV amnio 150 mg. Dopamine switch to norepinephrine which was weaned off by end of procedure. Integrilin drip discontinued at completion of procedure and loaded with ticagrelor Arterial Closure: TR seble, Star close Summary: 1. Inferior STEMI/subtotally occluded, heavily calcified mid RCA, 95% heavily calcified latemid RCA 2. Mild non-culprit vessel coronary artery disease 3. Transient cardiogenic shock requiring vasopressors 4. Nonsustained VT 5. Peripheral arterial diseasesevere heavily calcified right common femoral artery stenosis on ultrasound, moderate to severe left common iliac stenosis 6. Normal intracardiac filling pressure 7. Successful PCI of sequential mid RCA lesions with 2 nonoverlapping drug- eluting stents (2.75 x 18, 2.5 x 12 Kenneth; more proximal stent dilated with 3.0 NC). Recommendations: Admit to ICU for continued monitoring Wean off vasopressors Continue dual-antiplatelet therapy with aspirin, ticagrelor for at least 1 year. Trend troponins until peak, Check Echo Start beta-jurgen/VICKI as BP allows High-dose statin Consult cardiac Rehab Hemodynamics Rest Ao:: 124/57/83 Final Ao: 120/60/83 LV: 111/12 Recommendations Recommendations: PCI without planned CABG Specimens Specimens: None Radiation Exposure (mGy) 4910 Contrast (mls) 125 Fluids (cc crystalloids) Fluids (cc crystalloids): 2200 Drains Drains: none Anesthesia moderate Procedural Complication(s) None Disposition ICU I attest to the content of the Intraoperative Record and any orders documented therein. Any exceptions are noted below. [facility] Card Cath Procedure Codes Cardiac Catheterization Procedure 1: Cardiovascular Cath Procedures: 12921 Coronaries and LHC (+/-LV) Therapeutic Services & Ancillary Proc Procedure 1: Cardiovascular Tx and Anc Procedures: 42262 Ultrasonic Guidance Vascular Access Moderate Sedation Procedure 1: Sedation/Anesthesia: 98248 Mod Sedation by the same physician;Init15 Min Child Age 5 & Up Procedure 2: Sedation/Anesthesia: 08789 Mod Sedation by the same physician; Ea [id number] Minutes Stenting Procedure 1: Cardiovascular Stent Procedures: 18410 Perc transluminal revascularization of acute sub/total occl, aMI PG Care Time/CCT Total # of Minutes Spent Total Time Spent with Patient: Total time spent is greater than 50% in coordination of care (as documented) at patient's floor/unit and/or counseling patient:
[2020-03-19] MEDS ORDERED: Nursing to Pharmacy Communication SCH ×2 (16:00→17:15)
[2020-03-19] MEDS ORDERED: LIDOCAINE/EPINEPHRINE 1% 20 ML VIAL INJ ONE (16:15)
--- NOTE | 2020-03-19 16:25 | Electrocardiogram Report ---
Test Reason : Blood Pressure : / mmHG Vent. Rate : 083 BPM Atrial Rate : 083 BPM P-R Int : 200 ms QRS Dur : 094 ms QT Int : 420 ms P-R-T Axes : 074 026 040 degrees QTc Int : 493 ms Sinus rhythm with with occasional Premature ventricular complexes Prolonged QT Abnormal ECG When compared with ECG of 19-MAR-2020 12:23, ST no longer elevated in Inferior leads ST no longer depressed in Anterolateral leads Confirmed by Adalid Oconnor ([id number]) on 03/19/2020 4:24:53 PM Referred By: Michael Etienne Confirmed By:Adalid Oconnor
[2020-03-19] MEDS ORDERED: ICU ELECTROLYTE REPLACEMENT PROTOCOL PRN ×2 (17:08→17:30)
--- NOTE | 2020-03-19 17:09 | Critical Care Consultation ---
Date of Consultation March 19, 2020 Assessment & Plan (1) STEMI (ST elevation myocardial infarction): Impression: 65-year-old male with acute right coronary ST elevation myocardial infarction status post 2 stents. Recommendations: 1. Acute myocardial infarction: Patient has had stents placed. He is pain- free. Continue management per cardiology. 2. Hypotension: Suspect some degree of cardiogenic shock. Weaning pressors as tolerated. Echocardiogram pending. 3. Cirrhosis: Secondary to hep C. Not an acute issue currently. Continue to follow and will need outpatient follow-up with hepatology at [facility]. 4. Tobacco abuse: Smoking cessation recommended. The patient may be eligible for consideration for smoking cessation courses upon discharge. 5. Coagulopathy: The patient is experiencing some oozing from the left groin arterial access site. There does not appear to be a hematoma. [facility] is been contacted. Additional management per cardiology and [facility]. 6. Hypokalemia: Replacement protocol will be initiated and followed. Will ensure magnesium is appropriate. 7. VT: Associated with the procedure. Continue telemetry. Ensure electrolytes are appropriately repleted. We will continue to monitor in ICU for now. (2) Cirrhosis: (3) Current smoker: History of Present Illness Attending Physician: Jose Etienne MD History of Present Illness Asked by cardiology to assist in management of this patient status post cardiac catheterization with 2 stent placement for acute coronary syndrome. History is obtained from review electronic medical record and discussion with the patient. Patient is a 65-year-old male with a history of cirrhosis secondary to hepatitis C who presented to the emergency room today with chest discomfort. He developed transient heart block and had ST elevations in the inferior leads. He was taken emergently to the [facility] by Dr. Etienne. 2 culprit lesions in the right coronary artery were identified. Initial cardiac catheterization was performed through a right radial approach but the stenoses were unable to be crossed and they transition to a left femoral approach. Eventually they were able to intervene upon the stenoses. An iliac stenosis was also angioplastied. 2 drug- eluting stents were placed. The patient received Integrilin ticagrelor. The procedure was complicated by nonsustained VT and hypotension requiring vasopressor agents. He was initially placed on dopamine then transition to norepinephrine. He was brought to the ICU chest pain-free. He has had some issues with bleeding of the left femoral approach despite a Star close device. He has no shortness of breath, nausea, or vomiting. Allergies Allergy/AdvReac Type Severity Reaction Status Date / Time amoxicillin Allergy Mild Rash Verified 02/10/20 09:01 doxycycline Allergy Mild Rash Verified 02/10/20 09:01 Home Medications Home Medications Medication Instructions Recorded Confirmed Type amlodipine 10 mg tablet 10 mg PO DAILY #90 tab 08/22/19 02/10/20 Rx albuterol sulfate 90 mcg/actuation 2 puffs INH QID PRN #18 gm 10/04/19 02/10/20 Rx aerosol inhaler lisinopril 20 1 tab PO DAILY #90 tab 10/04/19 02/10/20 Rx mg-hydrochlorothiazide 25 mg tablet cholecalciferol (vitamin D3) 1,250 1,250 mcg PO WEEKLY #13 cap 10/24/19 02/10/20 Rx mcg (50,000 unit) capsule lisinopril 10 mg tablet 10 mg PO DAILY #30 tab 02/10/20 02/10/20 Rx triamcinolone acetonide 0.5 % 1 appln TOP BID PRN gm 02/10/20 History topical cream Patient History Medical History (Updated 03/19/20 @ 15:09 by Lopez Orellana MD) Cataract, bilateral Cirrhosis Current smoker (Acute) Dyslipidemia (Acute) Hepatitis C Hypertension Psoriasis Thrombocytopenia Surgical History (Updated 10/04/19 @ 08:24 by Arpit Alvarado DO) History of cataract surgery History of tonsillectomy History of tooth extraction wisdom teeth Social History (Updated 10/20/19 @ 08:49 by Anitra Foster) Preferred Language: Andorran Communication Ability: Effective Visual Impairment: Diminished Hearing Ability: Normal Osteology Teacher Required: No Beliefs That Will Affect Care: None marital status: Single Current Living Situation: Significant Other Current Living Situation Comment: lives with s/o current occupational status: retired Other Information That Helps Us Care for You: No Feels Safe at Home: Yes Safety Concerns: Feels Safe At This Time Smoking Status: Current every day smoker Tobacco Type: cigarettes ; Cigarettes Per Day: 10 ; Second Hand Exposure: No ; Tobacco Cessation Education Requested by Patient: No Hx Alcohol Use: Yes Alcohol type: beer Hx Substance Use: No Childhood Exposure to Second-Hand Smoke: No caffeine: Yes Dental Care, Regularly: No Physical Activity Frequency: Daily Seatbelt Use: always Sunscreen Use: No Review of Systems Review of Systems: All systems reviewed & are unremarkable except as noted in HPI & below Results & Data Results & Data ([place]) Vital Signs (Past 12 Hours) Vital Signs Temp Pulse Resp BP Pulse Ox 03/19/20 16:13 79 16 118/74 98 03/19/20 16:00 83 18 98 03/19/20 15:58 74 13 117/70 98 03/19/20 15:45 72 14 97 03/19/20 15:43 80 14 97/69 L 96 03/19/20 15:30 80 15 96 03/19/20 15:28 75 13 107/71 94 03/19/20 15:15 80 18 99 03/19/20 15:12 82 18 98/73 L 95 03/19/20 15:10 73 14 105/60 95 03/19/20 15:08 78 18 107/67 96 03/19/20 15:06 82 18 105/69 97 03/19/20 15:02 19 103/75 94 03/19/20 15:01 98 03/19/20 12:30 99 03/19/20 12:12 36.8 C 70 24 102/63 99 Laboratory Results 03/19/20 12:21 03/19/20 12:21 Diagnostic Findings Chest x-ray from today was independently reviewed. Lungs are well aerated. No pulmonary edema. No acute abnormality. Coding Level of Care Code 13997 Inpt Consult Level 4 Diagnoses STEMI (ST elevation myocardial infarction) I21.3 Cirrhosis K74.60 Current smoker F17.200
[2020-03-19] MEDS ORDERED: LIDOCAINE/EPINE 2% 1:100,000 20ML INFIL ONE (17:15)
[2020-03-19] MEDS ORDERED: POTASSIUM CHLORIDE 20 MEQ TABCR PO ONE (17:45)
[2020-03-19] MEDS: POTASSIUM CHLORIDE / WTR 10 MEQ/100 ML PLCT IV SCH ×4 (18:29→22:26)
[2020-03-20] MEDS: TICAGRELOR 90 MG TAB PO SCH ×2 (01:44→13:48)
[2020-03-20 03:05] LABS: Basophils # (auto) 0.01 K/uL (0-0.2); Basophils % (auto) 0.1 %; Calcium 7.7 mg/dl (8.5-10.1); Creatinine Clr Calc Pharmacy 100.5 ml/min; Eosinophils # (auto) 0.14 K/uL (0-0.5); Eosinophils % (auto) 1.7 %; Est GFR (African American) 109.4; Est GFR (Non-African American) 94.4; Hematocrit (blood only) 33.6 % (42-52); Hemoglobin 11.8 g/dL (14.0-18.0); Immature Granulocytes # (auto) 0.02 K/uL (0.00-0.02); Immature Granulocytes % (auto) 0.2 %; Lymphocytes # (auto) 1.48 K/uL (1.2-3.4); Lymphocytes % (auto) 17.5 %; Magnesium 1.8 mg/dl (1.8-2.4); Mean Corpuscular Hemoglobin 34.2 pg (25-34); Mean Corpuscular Hgb Conc 35.1 g/dL (32-36); Mean Corpuscular Volume 97.4 fL (80-100); Mean Platelet Volume 9.5 fL (7.4-10.4); Monocytes # (auto) 1.08 K/uL (0.11-0.59); Monocytes % (auto) 12.8 %; Neutrophils # (auto) 5.73 K/uL (1.4-6.5); Neutrophils % (auto) 67.7 %; Phosphorus 2.6 mg/dl (2.5-4.9); Platelet Count 173 K/uL (130-400); Potassium 3.8 mmol/L (3.5-5.1); Red Blood Count 3.45 M/uL (4.7-6.1); White Blood Count 8.46 K/uL (4.8-10.8)
[2020-03-20] MEDS ORDERED: CALCIUM GLUCONATE 10% 1,000 MG in SODIUM CHLORIDE 0.9% 50 ML IV ONE (06:30)
[2020-03-20 06:57] LABS: Estimated Average Glucose 94 mg/dl; Hemoglobin A1C 4.9 % (4.5-5.6)
--- NOTE | 2020-03-20 07:36 | Critical Care Progress Note ---
Date of Service March 20, 2020 Assessment & Plan (1) STEMI (ST elevation myocardial infarction): Impression: 65-year-old male with acute right coronary ST elevation myocardial infarction status post 2 stents. Recommendations: 1. Acute myocardial infarction: Per cardiology. Continue beta-jurgen and VICKI inhibitor as tolerated by blood pressure as well as aspirin and Brilinta. Cardiac rehab as an outpatient. 2. Hypotension: Resolved. Patient is off vasoactive medications. 3. Cirrhosis: Secondary to hep C. Not an acute issue currently. Continue to follow and will need outpatient follow-up with hepatology at [facility]. 4. Tobacco abuse: Smoking cessation recommended. The patient may be eligible for consideration for smoking cessation courses upon discharge. 5. Coagulopathy: Resolved. No evidence of ongoing bleeding. 6. Hypokalemia: Replacement protocol in place. Follow-up of labs. 7. VT: Associated with the procedure and dopamine. Resolved without evidence of additional arrhythmias. Ultimate disposition per cardiology. Will sign off for now. Feel free to contact us if we can be of additional critical care pulmonary assistance (2) Cirrhosis: (3) Current smoker: Admission and Anticipated Discharge Date Admission Date: March 19, 2020 Subjective Patient seen and examined. EMR reviewed. Discussed with critical care NICOLAS from overnight as well as bedside nursing. Patient is doing well. His bleeding issues resolved. There is no evidence of a femoral hematoma. He is pain-free. No shortness of breath. He states he feels as good as he has in months. He is quite anxious to be dismissed from the hospital. Review of Systems Review of Systems: All systems reviewed & are unremarkable except as noted in HPI & below Physical Exam Constitutional: WD/WN, vitals as above Neck: trachea midline, no thyromegaly Respiratory: normal respiratory effort, lungs clear to auscultation Cardiovascular: RRR, no murmur, no edema Gastrointestinal (Abdomen): normal bowel sounds, soft, nontender, no hepatosplenomegaly Musculoskeletal: Extremities: extremities normal to inspection Skin: no rashes, warm and dry Neurologic: Nonfocal exam Lymphatic: no cervical lymphadenopathy Results & Data Results & Data ([facility]) Vital Signs (Past 12 Hours) Vital Signs Temp Pulse Pulse Resp BP BP Pulse Ox 03/20/20 06:30 64 20 119/73 97 03/20/20 05:00 70 18 148/73 H 97 03/20/20 04:00 36.8 C 68 18 97 03/20/20 03:29 79 19 122/77 99 03/20/20 02:29 76 16 113/68 97 03/20/20 01:46 79 22 120/69 99 03/20/20 00:46 36.5 C 80 17 91/44 L 97 03/19/20 23:00 81 19 127/74 97 03/19/20 22:09 79 19 111/65 97 03/19/20 21:00 72 22 124/69 98 03/19/20 20:33 76 20 118/70 98 03/19/20 20:30 94 H 23 99 03/19/20 20:14 92 H 25 H 142/77 H 99 03/19/20 20:00 68 70 17 124/65 99 Laboratory Results 03/20/20 02:26 03/20/20 02:26 Diagnostic Findings Echocardiogram pending Coding Level of Care Code 25257 Subseq Hosp Care Lvl 2 Diagnoses STEMI (ST elevation myocardial infarction) I21.3 Involved coronary artery: unspecified coronary artery Cirrhosis K74.60 Current smoker F17.200 (1) STEMI (ST elevation myocardial infarction) Involved coronary artery: unspecified coronary artery Qualified Code(s): I2 1.3 - ST elevation (STEMI) myocardial infarction of unspecified site
--- NOTE | 2020-03-20 07:55 | Electrocardiogram Report ---
Test Reason : Blood Pressure : / mmHG Vent. Rate : 071 BPM Atrial Rate : 071 BPM P-R Int : 202 ms QRS Dur : 098 ms QT Int : 438 ms P-R-T Axes : 066 041 062 degrees QTc Int : 475 ms Normal sinus rhythm Normal ECG When compared with ECG of 04-SEP-2018 21:46, Premature ventricular complexes are no longer Present Confirmed by Adalid Oconnor ([id number]) on 03/19/2020 2:53:07 PM Also confirmed by Adalid Oconnor ([id number]), e business specialist Elham Garrido ([id number]) on 03/20/2020 8:46:38 AM Referred By: Michael Etienne Confirmed By:Adalid Oconnor
[2020-03-20] MEDS ORDERED: PNEUMOCOCCAL Polysaccharide Vaccine 25mcg/0.5mL vial/Syr IM ONE (08:15)
[2020-03-20] MEDS ORDERED: ASPIRIN 81 MG ECTAB PO SCH (09:00)
[2020-03-20] MEDS ORDERED: METOPROLOL TARTRATE 25 MG TAB PO SCH (09:00)
[2020-03-20] MEDS ORDERED: lisinopriL 5 MG TAB PO SCH (09:00)
[2020-03-20] MEDS ORDERED: ATORVASTATIN 40 MG TAB PO SCH (09:00)
[2020-03-20] MEDS ORDERED: ENOXAPARIN INJ 40 MG/0.4 ML SYR SQ SCH (10:00)
--- NOTE | 2020-03-20 11:16 | XCELERA ---
[id number]
--- NOTE | 2020-03-20 12:46 | Discharge Summary ---
Date of Service March 20, 2020 Admission HPI Per Admitting Provider 65-year-old male presents to the ER for chest pain which started at 11:45 AM on 03/19/2020 at rest. In the ER he was found to have acute inferior wall OH he developed transient heart block was taken emergently to the heart catheterization laboratory where he had to drug-eluting stents placed in the right coronary artery which was heavily calcified and almost completely occluded. This time a Handle Lathe Operator was complicated by an episode of nonsustained V. tach requiring an bolus of amiodarone and some hypotension requiring some norepinephrine. Patient also had access issues where his right wrist was initially accessed but the procedure cannot be performed through this artery and subsequently had his groin access. Patient was transferred to the ICU in stable condition with Brilinta and aspirin tapering off Integrilin and after I spoke with Dr. Etienne the gas attendant no additional amiodarone would be required. Subsequently Dr. Etienne also started beta-jurgen therapy reduce his lisinopril from 10-5 and initiated statin therapy with atorvastatin Principal Diagnosis STEMI Discharge Exam The patient appeared well nourished and normally developed. Vital signs as documented. Head exam is normocephalic atraumatic no scleral icterus Neck is without JVD, thyromegaly, or carotid bruits. Lungs are clear to auscultation, no focal loss of breath sounds Cardiac exam, Rhythm is regular.. No murmurs, rubs or gallops. Abdominal exam reveals normal bowel sounds, soft non tender, no masses Extremities are nonedematous and both pedal pulses are normal. Neurologic exam is alert and oriented, no focal loss of strength or sensation Skin is without bruises or rashes Psychologically is without concerns for anxiety or depression Discharge Data Allergies Allergy/AdvReac Type Severity Reaction Status Date / Time amoxicillin Allergy Mild Rash Verified 03/26/20 08:48 doxycycline Allergy Mild Rash Verified 03/26/20 08:48 Consultations 03/19/20 14:51 Consult Cardiac Rehabilitation Routine Consult Case Management - Discharge Planning Routine Consult Ladder Operator Routine 03/19/20 14:56 Consult Cardiology Routine 03/19/20 15:07 Consult Case Management - Discharge Planning Routine Consult Ladder Operator Routine Procedures Performed Operation Date: 03/19/20 12:30 Actual Procedures p Aspiration/PCI w/TOM for Stemi - Michael Etienne MD s Cineradiography w/Routine Exam - Michael Etienne MD s Ultrasound Vascular Access - Michael Etienne MD s Cath, Left with Cors and Vent - Michael Etienne MD Ordered Studies 03/19/20 12:38 CL Cath Imgs for PACS use only Stat 03/20/20 04:10 US point of care ultrasound Urgent Hospital Course (1) STEMI (ST elevation myocardial infarction): Patient presented with acute chest pain ST elevations were noted in the inferior leads, patient taken to the heart catheterization lab where he had stent placement in the right coronary artery x2 with drug-eluting stents as mentioned in the HPI complicated by nonsustained V. t Appreciate input from Cardio: No recurrent chest pain. Minimal troponin elevation. LV function preserved. Off pressors and hemodynamically stable. - Discussed with patient that would prefer he stay another night to monitor on telemetry but patient adamant about discharge. - Home on DAPT with aspirin, Ticagrelor - Continue toprol xl, lisinopril and statin. Follow-up with cardiology in 1-2 weeks. (2) Cirrhosis: Cirrhosis felt secondary to hepatitis C diagnosis made in 2019 patient seen by [facility] further work-up was undertaken counseled to avoid alcohol liver toxins and sharing things that could involve body fluids including toothbrushes razors protective sex was begun on treatment of MAVYRET for 8 weeks should have been initiated sometime after December 2019 however this is pending insurance approval Patient has thrombocytopenia listed in his history his platelet count was appropriate at the time of catheterization is unclear whether this is a result of his liver disease (3) Hypertension: Patient had will have his lisinopril reduced to 5 and metoprolol begun. His amlodipine will be held in favor of the beta-jurgen therapy (4) Current smoker: Patient be given counseling for smoking cessation and offered a nicotine patch (5) DVT prophylaxis: Lovenox therapy was added for DVT prevention Total Time Total Time Spent Total Time Spent (In Minutes): 32 Total Time Includes: Examination of the Patient, Discharge Planning and Medication Reconciliation Discharge Plan Discharge Items Patient Disposition: Home - Self-Care Reason For Visit: STEMI Discharge Diagnosis: STEMI Activity: Resume your previous activity Non-emergency contact: Primary Care Provider Call non-emergency contact if: you have any medication questions Follow-up/Referrals: Arpit Alvarado DO [Primary Care Provider] - Diet: Heart Healthy and Low Sodium (2gm) Addtl Attending Provider Instructions: Home Care: * Take your medications exactly as directed. Don't skip doses. * Remember that recovery after a heart attack takes time. Plan to rest for at lease 4-8 weeks while you recover. Then return to normal activity when your doctor says it's okay. * Ask your doctor about joining a heart rehabilitation program. * Tell your doctor if you are feeling depressed. Feelings of sadness are common after a heart attack, but it is important that you speak to someone if you are feeling overwhelmed by these feelings. * If you are having chest pain, call 911 for an ambulance. Do NOT drive yourself to the hospital. * Ask your family members to learn CPR. * Learn to take your own blood pressure and pulse. Keep a record of your resu lts. Ask your doctor when you should seek emergency medical attention. He or she will tell you which blood pressure reading is dangerous. Lifestyle Changes: * Maintain a healthy weight. Get help to lose any extra pounds. * Cut back on salt. * Limit canned, dried, packaged, and fast foods. * Don't add salt to your food. * Season foods with herbs instead of salt when you cook. * Break the smoking habit. Enroll in a stop-smoking program to improve your chances of success. * Limit fatty foods. * Ask your doctor about having your lipid levels checked regularly. * Build up your activity according to your doctor's recommendation. * Ask your doctor when it's okay to resume sexual activity. * Tell your doctor about any erectile dysfunction (ED) medication you are taking. Some ED medications are not safe if you take certain heart medications. * Try to manage stress. Follow Up: It is important for you to keep your follow up appointments with your medical provider. Pending Studies at Discharge: No Stand-Alone Forms: My [facility], Smoking Cessation Medications and DC Order Prescriptions: New lisinopril [Zestril] 5 mg Tablet 5 mg PO QAM Qty: 30 RF: 0 Brilinta 90 mg Tablet 90 mg PO Q12H Qty: 60 RF: 0 nitroglycerin [Nitrostat] 0.4 mg Tablet, Sublingual 0.4 mg sublingual PRN PRN (Reason: chest pain) Qty: 7 RF: 0 aspirin 81 mg Tablet,Delayed Release (Dr/Ec) 81 mg PO QAM Qty: 30 RF: 0 Continued cholecalciferol (vitamin D3) 1,250 mcg (50,000 unit) capsule 1,250 mcg PO WEEKLY Qty: 13 RF: 1 triamcinolone acetonide 0.5 % cream 1 appln TOP BID PRNRF: 0 Discontinued amlodipine 10 mg tablet 10 mg PO DAILY Qty: 90 RF: 2 lisinopril-hydrochlorothiazide 20-25 mg tablet 1 tab PO DAILY Qty: 90 RF: 3 lisinopril 10 mg tablet 10 mg PO DAILY Qty: 30 RF: 2 No Action atorvastatin 40 mg tablet 40 mg PO QAM RF: 0 Discharge Orders: Discharge Order (Routine); Ordered 03/20/20 Ordered By: Festus Chappell Admission Data Admit Date/Time: 03/19/20 14:51 Attending Provider: Michael Etienne Admit Provider: Michael Etienne Primary Care Provider: Arpit Alvarado Other Providers: Genaro Graham ; Michael Etienne Other Interventions: Discharge Summary Assessment (RN) Last Done: 03/20/20 12:56 DC Date/Time DO NOT enter until pt leaves facility: 03/20/20 14:06 Coding Level of Care Code D/C Day Management >30 mins Diagnoses STEMI (ST elevation myocardial infarction) I21.3 Involved coronary artery: unspecified coronary artery Cirrhosis K74.60 Hypertension I10 Current smoker F17.200 DVT prophylaxis Z29.9 Time Spent (min) 32
--- NOTE | 2020-03-20 15:15 | Cardiology Progress Note ---
Date of Service March 20, 2020 Assessment & Plan (1) STEMI (ST elevation myocardial infarction): 2. Hypotension 3. NSVT 4. Preserved LV function 5. Access site bleeding 6. Tobacco abuse 7. PAD No recurrent chest pain. Minimal troponin elevation. LV function preserved. Off pressors and hemodynamically stable. - Discussed with patient that would prefer he stay another night to monitor on telemetry but patient adamant about discharge. - Home on DAPT with aspirin, Ticagrelor - Continue toprol xl, lisinopril and statin. Follow-up with cardiology in 1-2 weeks. Admission and Anticipated Discharge Date Admission Date: March 19, 2020 Subjective Feeling well today. Denies any chest pain. No additional bleeding at RT groin cath site following lidocaine with epi. Tele reviewed - no events. No other new concerns. Really wants to go home today. Review of Systems Review of Systems: All systems reviewed & are unremarkable except as noted in HPI & below Physical Exam Physical Exam: General: Feeling well HEENT: Sclerae anicteric, mucous membranes moist Lungs: Coarse breath sounds Cardiac: Regular, no murmurs Abdomen: Soft, nontender Extremities: Warm, well perfused, no edema. 2+ radial pulses Neuro: Nonfocal Psych: Alert orient x3, normal affect and mood Results & Data ([facility]) Vital Signs (Past 12 Hours) Vital Signs Temp Pulse Pulse Resp BP BP BP 03/20/20 12:56 98.4 F 77 18 114/68 131/74 03/20/20 11:53 98.4 F 77 18 114/68 03/20/20 11:17 71 20 115/70 03/20/20 11:00 76 19 03/20/20 10:00 64 16 03/20/20 09:17 68 16 101/59 L 03/20/20 09:00 66 14 03/20/20 07:55 98.2 F 77 14 131/74 03/20/20 06:30 64 20 119/73 03/20/20 05:00 70 18 148/73 H 03/20/20 04:00 98.2 F 68 18 03/20/20 03:29 79 19 122/77 Pulse Ox 03/20/20 12:56 97 03/20/20 11:53 97 03/20/20 11:17 98 03/20/20 11:00 96 06/30/20 10:00 98 03/20/20 09:17 99 03/20/20 09:00 98 03/20/20 07:55 99 03/20/20 06:30 97 03/20/20 05:00 97 03/20/20 04:00 97 03/20/20 03:29 99 PG Care Time/CCT Total # of Minutes Spent Total Time Spent with Patient: Total time spent is greater than 50% in coordination of care (as documented) at patient's floor/unit and/or counseling patient: Coding Level of Care Code 98375 Subseq Hosp Care Lvl 3 Diagnoses STEMI (ST elevation myocardial infarction) I21.3 Involved coronary artery: unspecified coronary artery (1) STEMI (ST elevation myocardial infarction) Involved coronary artery: unspecified coronary artery Qualified Code(s): I21.3 - ST elevation (STEMI) myocardial infarction of unspecified site
== END 2020-03-20 14:06 | disposition home or self-care (01) | DRG 246 ==
LOC: ED 12:10 → CC 12:38 → 1E 14:51

== ENCOUNTER 2022-12-17 21:06 | Observation (INO) ==
[2022-12-17] MEDS ORDERED: SODIUM CHLORIDE 0.9% 1000ML 1,000 ML IV SCH (21:15)
--- NOTE | 2022-12-17 21:19 | Emergency Department Note ---
Impression & Plan Near syncope, Coronary artery disease, Nausea & vomiting ED Provider Note Provider: Rikki Macdonald MD DATE OF SERVICE: 12/17/2022 CHIEF COMPLAINT: Near syncope, weak HISTORY OF PRESENT ILLNESS: Patient is a 67-year-old gentleman history of alcohol use, smoking, CAD, PAD, hypertension presenting here today via ambulance from his home. He was working on making dinner. Had 3-4 beers today is normal. States while making dinner began to feel lightheaded and dizzy like he might pass out. States was with his and did not fall to the ground but nearly passed out his eyes evidently rolled back in his head for about 10 seconds. Denies any significant chest pain but endorses nausea and did vomit. Denies abdominal pain. States feeling somewhat improved and did take a nitroglycerin p rior to arrival he thinks with some improvement. Again has a cardiac history and states this was a bit similar to when he had his stent placed in 2019. Denies focal numbness but states he still feels just a little bit weak. PAST MEDICAL HISTORY: As noted above MEDICATIONS: Reviewed home medications SOCIAL HISTORY: Regular alcohol use, , lives at home PHYSICAL EXAM: GENERAL: alert and oriented in no acute distress on stretcher Head: normocephalic and atraumatic EYES: No injection, discharge or icterus. PERRL, EOMI. NECK: Trachea midline. Supple. ENT: Mucous membranes pink and moist. Pharynx without erythema or exudate. LUNGS: Airway patent. No retractions. Breath sounds clear with good air entry bilaterally. HEART: Regular rate and rhythm. No chest wall tenderness ABDOMEN: Soft and non-tender, without guarding or rebound. No hepatosplenomegaly or masses BACK: No midline tenderness, no SI joint tenderness. No bilateral flank tenderness. SKIN: Acyanotic, warm, dry, without rashes EXTREMITIES: Without swelling, tenderness or deformity NEUROLOGICAL: No focal deficits. No aphasia. No facial droop or slurred speech. Normal strength and tone in the extremities. Sensation to gross touch normal. Ambulatory. EK bpm sinus bradycardia with a first-degree AV block. No PVC. No acute ST segment elevation or depression with QTc of 432. Compared to previous from May 10, 2028 today resolved inferior T wave changes. CONTINUOUS CARDIAC MONITORING: was ordered and showed a heart rate of 50s-60s bpm in first-degree heart block sinus bradycardia to normal sinus rhythm first- degree heart block 1 view chest x-ray per my interpretation: No evidence of pneumonia or p neumothorax. Normal cardiac silhouette. No free air under the diaphragm. Patient's laboratory studies and imaging reviewed. Differential includes dehydration, metabolic abnormality, hypo/hyperglycemia, electrolyte disturbance, anemia, hypoxia, cardiac sources, intoxication neurologic, as well as other pathologies. IMPRESSION/MEDICAL DECISION MAKING: Patient with vascular history and significant alcohol use. Had a near syncopal event but likely did not fall or sustain trauma today. EKG without significant acute changes. Not significantly tachycardic or hypoxic and low suspicion for PE. No evidence of significant fluid overload in his lower extremities. Basic labs were sent including medical alcohol. Given his history and the related cardiac history do have some concern for underlying ACS or cardiac event today. Not having focal neurological deficits low suspicion for acute CVA. Blood work with slight hyponatremia but no significant renal dysfunction. No evidence of hepatitis or pancreatitis based on labs. TSH slightly elevated 6.1. Slight alcohol of 20.3 but not severely elevated. Initial troponin not elevated. On reassessment the patient still feeling a bit off. Heart score is elevated. Given the near syncopal event discussed with the hospitalist for further evaluation and monitoring here. Patient wishes for this. DIAGNOSIS: Near syncope, weakness, nausea and vomiting DISPOSITION: Hospitalist will evaluate Patient was agreeable with this plan. Past Med/Surg History Medical History (Updated 12/18/22 @ 00:10 by Rikki Macdonald M.D.) Cataract, bilateral Cirrhosis Colon cancer screening FIT test Complete heart block Current smoker Dyslipidemia Hepatitis C Completed Treatment Hypertension Psoriasis STEMI (ST elevation myocardial infarction) Thrombocytopenia Surgical History History of cataract surgery History of tonsillectomy History of tooth extraction wisdom teeth Family History Mother Thyroid cancer Father No problems noted. 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 Required: No Beliefs That Will Affect Care: None marital status: Single Current Living Situation: Significant Other Current Living Situation Comment: lives with s/o current occupational status: retired Feels Safe at Home: Yes Childhood Exposure to Second-Hand Smoke: No caffeine: Yes Dental Care, Regularly: Yes Physical Activity Frequency: Daily Physical Activity Frequency Comment: walking and yoga Seatbelt Use: always Sunscreen Use: No Do you think of yourself as: straight/heterosexual Assistive Devices: None Allergies Allergies Allergy/AdvReac Type Severity Reaction Status Date / Time amoxicillin Allergy Intermediate Rash Verified 12/17/22 21:44 Home Meds Home Medications Medication Instructions Recorded Confirmed timolol maleate 0.5 % eye drops 1 drp OPB DAILY 12/10/21 12/17/22 doxycycline hyclate 100 mg capsule 100 mg PO BID 12/17/22 12/17/22 Previous Rx's Medication Instructions Recorded aspirin 81 mg tablet,delayed 81 mg PO QAM #30 tabs 03/20/20 release nitroglycerin 0.4 mg sublingual 0.4 mg sublingual PRN PRN chest 03/20/20 tablet (Nitrostat) pain #7 tabs triamcinolone acetonide 0.5 % 1 applic topical BID PRN Rash #15 06/20/21 topical cream grams amlodipine 10 mg tablet 10 mg PO DAILY #90 tabs 07/04/22 carvedilol 6.25 mg tablet 6.25 mg PO BID #180 tabs 08/19/22 ticagrelor 60 mg tablet (Brilinta) 60 mg PO BID #60 tabs 10/02/22 rosuvastatin 10 mg tablet 10 mg PO DAILY #90 tabs 10/27/22 lisinopril 40 mg tablet 40 mg PO DAILY #90 tabs 11/19/22 hydrochlorothiazide 12.5 mg tablet 12.5 mg PO DAILY #90 tabs 12/15/22 Results & Data (ED) Vital Signs Vital Signs - 24 hr 12/17/22 21:10 12/17/22 21:10 12/17/22 21:34 Temperature 36.6 C Temperature Source Oral Pulse Rate 58 L Pulse Rate from SpO2 Sensor Respiratory Rate 20 Respiratory Effort / Characteristics Non-Labored Blood Pressure 116/61 Blood Pressure Mean 79 Pulse Oximetry 97 97 100 Oxygen Delivery Method Room Air Room Air Room Air Sepsis Recent Fever Within 48 Hours No Sepsis New/Unexplained Change in Mental Status N/A Sepsis Action Taken by Nursing No Action Required 12/17/22 21:33 12/17/22 22:31 12/17/22 22:31 Temperature Temperature Source Pulse Rate 57 L 64 Pulse Rate from SpO2 Sensor 65 Respiratory Rate 20 Respiratory Effort / Characteristics Blood Pressure 106/56 L Blood Pressure Mean 72 Pulse Oximetry 97 Oxygen Delivery Method Sepsis Recent Fever Within 48 Hours Sepsis New/Unexplained Change in Mental Status Sepsis Action Taken by Nursing Laboratory Data 12/17/22 21:12 12/17/22 21:12 Lab Results 12/17/22 12/17/22 12/17/22 Range/Units 21:12 21:12 21:12 WBC 10.26 (4.8-10.8) K/ul RBC 3.86 L (4.70-6.10) M/uL Hgb 12.9 L (14.0-18.0) g/dl Hct 36.6 L (42.0-52.0) % MCV 94.8 (80.0-100.0) fL MCH 33.4 (25.0-34.0) pg MCHC 35.2 (32.0-36.0) g/dL RDW Std Deviation 43.8 (36.4-46.3) fL RDW Coeff of Cj 12.5 (11.5-14.5) % Plt Count 282 (130-400) K/uL MPV 9.2 L (9.4-12.4) fL Immature Gran % (Auto) 0.7 % Neut % (Auto) 50.6 % Lymph % (Auto) 32.5 % Saunders % (Auto) 10.0 % Eos % (Auto) 5.0 % Baso % (Auto) 1.2 % Neut # (Auto) 5.20 (1.40-6.50) K/uL Lymph # (Auto) 3.33 (1.2-3.4) K/uL Saunders # (Auto) 1.03 H (0.11-0.59) K/uL Eos # (Auto) 0.51 H (0-0.50) K/uL Baso # (Auto) 0.12 (0-0.2) K/uL Immature Gran # (Auto) 0.07 (0.01-0.20) K/uL PT 10.9 (9.0-12.0) Seconds INR 1.0 (0.9-1.1) Sodium 133 L (136-145) mmol/L Potassium 3.7 (3.5-5.1) mmol/L Chloride 101 (98-107) mmol/L Carbon Dioxide 23 (21-32) mmol/L Anion Gap 9 (3-11) BUN 15 (6-23) mg/dl Creatinine 0.80 (0.6-1.4) mg/dl Est Cr Clr Drug Dosing 90.0 ml/min Est GFR ( Amer) 105.6 ml/min Est GFR (Non-Af Amer) 91.1 ml/min BUN/Creatinine Ratio 18.8 (10-20) Glucose 111 H (70-99(Fasting)) mg/dl Calcium 9.3 (8.6-10.3) mg/dl Magnesium 2.0 (1.7-2.4) mg/dl Total Bilirubin 0.4 (0.2-1.0) mg/dl AST 23 (13-39) U/L ALT 14 (7-52) U/L Alkaline Phosphatase 77 (34-104) U/L Troponin I High Sens 5.8 (0-20) pg/ml Total Protein 7.0 (6.0-8.3) gm/dl Albumin 4.1 (3.4-5.0) gm/dl Globulin 2.9 (2.5-4.0) gm/dl Albumin/Globulin Ratio 1.4 (0.9-2) Lipase 16 (11-82) U/L TSH (0.300-4.500) uIu/ml Free T4 (0.61-1.60) ng/dl Ethyl Alcohol mg/dL (<10.0) mg/dl SARS-CoV-2, RNA, NAAT (NEGATIVE) 12/17/22 12/17/22 12/17/22 Range/Units 21:12 21:30 21:34 WBC (4.8-10.8) K/ul RBC (4.70-6.10) M/uL Hgb (14.0-18.0) g/dl Hct (42.0-52.0) % MCV (80.0-100.0) fL MCH (25.0-34.0) pg MCHC (32.0-36.0) g/dL RDW Std Deviation (36.4-46.3) fL RDW Coeff of Cj (11.5-14.5) % Plt Count (130-400) K/uL MPV (9.4-12.4) fL Immature Gran % (Auto) % Neut % (Auto) % Lymph % (Auto) % Saunders % (Auto) % Eos % (Auto) % Baso % (Auto) % Neut # (Auto) (1.40-6.50) K/uL Lymph # (Auto) (1.2-3.4) K/uL Saunders # (Auto) (0.11-0.59) K/uL Eos # (Auto) (0-0.50) K/uL Baso # (Auto) (0-0.2) K/uL Immature Gran # (Auto) (0.01-0.20) K/uL PT (9.0-12.0) Seconds INR (0.9-1.1) Sodium (136-145) mmol/L Potassium (3.5-5.1) mmol/L Chloride (98-107) mmol/L Carbon Dioxide (21-32) mmol/L Anion Gap (3-11) BUN (6-23) mg/dl Creatinine (0.6-1.4) mg/dl Est Cr Clr Drug Dosing ml/min Est GFR ( Amer) ml/min Est GFR (Non-Af Amer) ml/min BUN/Creatinine Ratio (10-20) Glucose (70-99(Fasting)) mg/dl Calcium (8.6-10.3) mg/dl Magnesium (1.7-2.4) mg/dl Total Bilirubin (0.2-1.0) mg/dl AST (13-39) U/L ALT (7-52) U/L Alkaline Phosphatase (34-104) U/L Troponin I High Sens (0-20) pg/ml Total Protein (6.0-8.3) gm/dl Albumin (3.4-5.0) gm/dl Globulin (2.5-4.0) gm/dl Albumin/Globulin Ratio (0.9-2) Lipase (11-82) U/L TSH 6.178 H (0.300-4.500) uIu/ml Free T4 0.81 (0.61-1.60) ng/dl Ethyl Alcohol mg/dL 20.3 H (<10.0) mg/dl SARS-CoV-2, RNA, NAAT NEGATIVE (NEGATIVE) Administered Medications Discontinued Medications Aspirin (Aspirin 81 Mg Chew) 243 mg PO NOW STA Stop: 12/17/22 22:34 Last Admin: 12/17/22 22:50 Dose: 243 mg Documented By: ML Sodium Chloride (Nss 1000ml) 1,000 mls @ 999 mls/hr IV .Q1H1M ELIZABET Stop: 12/17/22 22:15 Last Infusion: 12/17/22 22:35 Dose: 0 mls/hr Documented By: Admin: 12/17/22 21:34 Dose: 999 mls/hr Documented By: ML Discharge Plan Visit Data Chief Complaint: Weakness Stated Complaint: WEAKNESS/DIZZINESS ED Provider: Rikki Macdonald Discharge Problem: Near syncope, Coronary artery disease, Nausea & vomiting Patient Disposition: Being Evaluated by Hospitalist Forms Stand Alone Forms: My [facility] Prescriptions Prescriptions: No Action carvedilol 6.25 mg tablet 6.25 mg PO BID Qty: 180 3RF Rx Instructions: must administer with a meal/food rosuvastatin 10 mg tablet 10 mg PO DAILY Qty: 90 3RF lisinopril 40 mg tablet 40 mg PO DAILY Qty: 90 3RF hydrochlorothiazide 12.5 mg tablet 12.5 mg PO DAILY Qty: 90 3RF timolol maleate 0.5 % drops 1 drp OPB DAILY Rx Instructions: both eyes triamcinolone acetonide 0.5 % cream 1 applic TOP BID PRN (Reason: Rash) Qty: 15 1RF Brilinta 60 mg tablet 60 mg PO BID Qty: 60 11RF amlodipine 10 mg tablet 10 mg PO DAILY Qty: 90 3RF nitroglycerin [Nitrostat] 0.4 mg Tablet, Sublingual 0.4 mg sublingual PRN PRN (Reason: chest pain) Qty: 7 0RF Rx Instructions: every 5 mins up to 3 doses. If chest pain is unrelieved 5 minutes after 1 dose, call aspirin 81 mg Tablet,Delayed Release (Dr/Ec) 81 mg PO QAM Qty: 30 0RF doxycycline hyclate 100 mg capsule 100 mg PO BID Rx Instructions: STARTED 12/04/22 FOR 15 DAYS. Referrals Referrals: Arpit Alvarado DO [Primary Care Provider] -
[2022-12-17 21:52] LABS: Basophils # (auto) 0.12 K/uL (0-0.2); Basophils % (auto) 1.2 %; Eosinophils # (auto) 0.51 K/uL (0-0.50); Hematocrit (blood only) 36.6 % (42.0-52.0); Hemoglobin 12.9 g/dl (14.0-18.0); Immature Granulocytes # (auto) 0.07 K/uL (0.01-0.20); Immature Granulocytes % (auto) 0.7 %; Lymphocytes # (auto) 3.33 K/uL (1.2-3.4); Lymphocytes % (auto) 32.5 %; Mean Corpuscular Hemoglobin 33.4 pg (25.0-34.0); Mean Corpuscular Hgb Conc 35.2 g/dL (32.0-36.0); Mean Corpuscular Volume 94.8 fL (80.0-100.0); Mean Platelet Volume 9.2 fL (9.4-12.4); Monocytes # (auto) 1.03 K/uL (0.11-0.59); Neutrophils % (auto) 50.6 %; Platelet Count 282 K/uL (130-400); RDW Coefficient of Variation 12.5 % (11.5-14.5); RDW Standard Deviation 43.8 fL (36.4-46.3); Red Blood Count 3.86 M/uL (4.70-6.10); White Blood Count 10.26 K/ul (4.8-10.8)
[2022-12-17 22:07] LABS: Albumin Globulin Ratio 1.4 (0.9-2); Albumin Level 4.1 gm/dl (3.4-5.0); BUN Creatinine Ratio 18.8 (10-20); Bilirubin,Total 0.4 mg/dl (0.2-1.0); Calcium 9.3 mg/dl (8.6-10.3); Est GFR (African American) 105.6 ml/min; Est GFR (Non-African American) 91.1 ml/min; Globulin 2.9 gm/dl (2.5-4.0); Potassium 3.7 mmol/L (3.5-5.1)
[2022-12-17 22:13] LABS: Troponin I High Sensitivity 5.8 pg/ml (0-20)
[2022-12-17 22:14] LABS: Prothrombin Time 10.9 Seconds (9.0-12.0)
[2022-12-17 22:20] LABS: Thyroid Stimulating Hormone 6.178 uIu/ml (0.300-4.500)
[2022-12-17] MEDS ORDERED: ASPIRIN 81 MG CHEW PO STA (22:33)
[2022-12-17 23:22] LABS: T4 Free Thyroxine 0.81 ng/dl (0.61-1.60)
--- NOTE | 2022-12-17 23:58 | History & Physical Report ---
Date of Service December 17, 2022 Assessment & Plan (1) Near syncope: (2) Nausea & vomiting: (3) Hypertension: (4) PAD (peripheral artery disease): (5) Coronary artery disease: (6) Cirrhosis: (7) Thrombocytopenia: (8) Current smoker: (9) Dyslipidemia: (10) Alcohol use disorder: Plan Near syncope/hypertension/CAD/AR history- The patient will be admitted to telemetry for serial cardiac enzymes, serial EKG's, cardiac rhythm monitoring and a 2-D echocardiogram with Dopplers. Multifactorial considerations but not limited to: Hypoglycemia, cardiac, alcohol related, hypotension Initial troponin negative at 5.8 Continue amlodipine, aspirin, Brilinta, carvedilol and lisinopril with hold parameters Hold HCTZ Patient does have a history of heart disease, which becomes the most important diagnosis to rule out at this time Advised alcohol and tobacco cessation Alcohol use disorder- Alcohol level 20.3 on admission Not expecting withdrawal, but will place on AWSS protocol Cessation counseling Hyperlipidemia- Continue rosuvastatin 10 mg daily Check a fasting lipid panel Dental infection- Complete 2 more days of doxycycline Tobacco use disorder- Cessation counseling Glaucoma- Continue timolol maleate History of Present Illness Chief Complaint: The patient presents to the emergency department with a near syncopal episode, unresponsive for about 10 seconds, we initially noted dizziness, having to balance himself against furniture, bilateral upper extremities felt heavy, and lower extremities felt weak. He did feel somewhat nauseous, and had a small amount of emesis Primary Care Provider: Arpit Alvarado DO The patient is a 67-year-old male with past medical history including dyslipidemia, tobacco use disorder, thrombocytopenia, cirrhosis, coronary disease, PAD, hypertension and dermatitis. The patient reports that he had his average 3-4 beers daily today, had some homemade deer beef jerky, and was cooking supper when he felt the symptoms as above. His , who is in the room now, reports that she thought she had almost lost him because he looks so bad. He was also describing associated sweats with the above symptoms. Is brought to the emergency department for assessment, and then referred for evaluation for admission. In the emergency department he did receive 1 L normal saline and aspirin 243 mg. He does have a history of coronary artery disease. Allergies Allergy/AdvReac Type Severity Reaction Status Date / Time amoxicillin Allergy Intermediate Rash Verified 12/17/22 21:44 Home Medications Medication Instructions Recorded Confirmed Type aspirin 81 mg tablet,delayed 81 mg PO QAM #30 tabs 03/20/20 12/17/22 Rx release nitroglycerin 0.4 mg sublingual 0.4 mg sublingual PRN PRN chest 03/20/20 12/17/22 Rx tablet (Nitrostat) pain #7 tabs triamcinolone acetonide 0.5 % 1 applic topical BID PRN Rash #15 06/20/21 12/17/22 Rx topical cream grams timolol maleate 0.5 % eye drops 1 drp OPB DAILY 12/10/21 12/17/22 History amlodipine 10 mg tablet 10 mg PO DAILY #90 tabs 07/04/22 12/17/22 Rx carvedilol 6.25 mg tablet 6.25 mg PO BID #180 tabs 08/19/22 12/17/22 Rx ticagrelor 60 mg tablet (Brilinta) 60 mg PO BID #60 tabs 10/02/22 12/17/22 Rx rosuvastatin 10 mg tablet 10 mg PO DAILY #90 tabs 10/27/22 12/17/22 Rx lisinopril 40 mg tablet 40 mg PO DAILY #90 tabs 11/19/22 12/17/22 Rx hydrochlorothiazide 12.5 mg tablet 12.5 mg PO DAILY #90 tabs 12/15/22 12/17/22 Rx doxycycline hyclate 100 mg capsule 100 mg PO BID 12/17/22 12/17/22 History Past Med/Surg History Medical History (Updated 12/18/22 @ 00:52 by Hunter Carranza MD) Cataract, bilateral Cirrhosis Colon cancer screening FIT test Complete heart block Current smoker Dyslipidemia Hepatitis C Completed Treatment Hypertension Psoriasis STEMI (ST elevation myocardial infarction) Thrombocytopenia Surgical History History of cataract surgery History of tonsillectomy History of tooth extraction wisdom teeth Family History Mother Thyroid cancer Father No problems noted. Denies family history of Ovarian cancer Prostate cancer Breast cancer Lung cancer Colorectal cancer Social History (Updated 07/04/22 @ 09:10 by Anitra L Brobeck) Smoking Status: Current every day smoker Tobacco Type: Cigarettes Age Started Using Tobacco: 14; packs per day: 0.5; Cigarettes Per Day: 10; Second Hand Exposure: No; Hx Alcohol Use: Yes Alcohol type: beer Alcohol Intake Frequency: 4 or More x per/Week Hx Substance Use: No Preferred Language: Japanese Communication Ability: Effective Visual Impairment: Diminished Hearing Ability: Normal Database Reporting Consultant Required: No Beliefs That Will Affect Care: None marital status: Single Current Living Situation: Significant Other Current Living Situation Comment: lives with s/o current occupational status: retired Feels Safe at Home: Yes Childhood Exposure to Second-Hand Smoke: No caffeine: Yes Dental Care, Regularly: Yes Physical Activity Frequency: Daily Physical Activity Frequency Comment: walking and yoga Seatbelt Use: always Sunscreen Use: No Do you think of yourself as: straight/heterosexual Assistive Devices: None Review of Systems Review of Systems: The patient denies chest pain, palpitations, shortness of breath, dyspnea on exertion, cough, lower extremity swelling, sore throat, fevers, chills, sweats, diarrhea , constipation, abdominal pain, pelvic pain, blood in urine or stool, dysuria, urinary frequency or urgency, rash, abnormal bruising or bleeding, imbalance, focal weakness, numbness or tingling in arms or legs, generalized arthralgias or myalgias, back or neck pain, or night sweats. The review of systems is otherwise negative other than for that already noted above, and at least 10 systems have been reviewed. Physical Exam Physical Exam: The patient is awake, alert and oriented 3, well developed and well nourished, normocephalic and atraumatic, lying in bed and in no acute distress. HEENT--PERRL, EOMI, mucous membranes and oropharynx mildly dry. Neck--supple. No JVD. No bruits. Thyroid normal, trachea midline, no adenopathy. Heart--normal S1 and S2. No murmurs, rubs or gallops. Lungs--clear bilaterally, no respiratory distress, no accessory muscle use. Abdomen--normal bowel sounds and soft. Nontender. Nondistended, no hernias or masses, no organomegaly. Extremities--no cyanosis or clubbing. No edema. Dermatologic--normal skin turgor, normal color, no abnormal lymph nodes, no rash. Neurologic--cranial nerves II through XII grossly intact. Rheumatologic--normal range of motion. Psychiatric--normal affect. Results & Data Results & Data Vital Signs (Past 12 Hours) Vital Signs Temp Pulse Resp BP Pulse Ox O2 Del Method 12/17/22 22:31 64 20 97 12/17/22 22:31 106/56 L 12/17/22 21:33 57 L 12/17/22 21:34 100 Room Air 12/17/22 21:10 97 Room Air 12/17/22 21:10 36.6 C 58 L 20 116/61 97 Room Air Laboratory Results Laboratory Results WBC 10.26 K/ul (4.8-10.8) 12/17/22 21:12 RBC 3.86 M/uL (4.70-6.10) L 12/17/22 21:12 Hgb 12.9 g/dl (14.0-18.0) L 12/17/22 21:12 Hct 36.6 % (42.0-52.0) L 12/17/22 21:12 MCV 94.8 fL (80.0-100.0) 12/17/22 21:12 MCH 33.4 pg (25.0-34.0) 12/17/22 21:12 MCHC 35.2 g/dL (32.0-36.0) 12/17/22 21:12 RDW Std Deviation 43.8 fL (36.4-46.3) 12/17/22 21:12 RDW Coeff of Cj 12.5 % (11.5-14.5) 12/17/22 21:12 Plt Count 282 K/uL (130-400) 12/17/22 21:12 MPV 9.2 fL (9.4-12.4) L 12/17/22 21:12 Immature Gran % (Auto) 0.7 % 12/17/22 21:12 Neut % (Auto) 50.6 % 12/17/22 21:12 Lymph % (Auto) 32.5 % 12/17/22 21:12 Bath % (Auto) 10.0 % 12/17/22 21:12 Eos % (Auto) 5.0 % 12/17/22 21:12 Baso % (Auto) 1.2 % 12/17/22 21:12 Neut # (Auto) 5.20 K/uL (1.40-6.50) 12/17/22 21:12 Lymph # (Auto) 3.33 K/uL (1.2-3.4) 12/17/22 21:12 Bath # (Auto) 1.03 K/uL (0.11-0.59) H 12/17/22 21:12 Eos # (Auto) 0.51 K/uL (0-0.50) H 12/17/22 21:12 Baso # (Auto) 0.12 K/uL (0-0.2) 12/17/22 21:12 Immature Gran # (Auto) 0.07 K/uL (0.01-0.20) 12/17/22 21:12 PT 10.9 Seconds (9.0-12.0) 12/17/22 21:12 INR 1.0 (0.9-1.1) 12/17/22 21:12 Sodium 133 mmol/L (136-145) L 12/17/22 21:12 Potassium 3.7 mmol/L (3.5-5.1) 12/17/22 21:12 Chloride 101 mmol/L (98-107) 12/17/22 21:12 Carbon Dioxide 23 mmol/L (21-32) 12/17/22 21:12 Anion Gap 9 (3-11) 12/17/22 21:12 BUN 15 mg/dl (6-23) 12/17/22 21:12 Creatinine 0.80 mg/dl (0.6-1.4) 12/17/22 21:12 Est Cr Clr Drug Dosing 90.0 ml/min 12/17/22 21:12 Est GFR ( Amer) 105.6 ml/min 12/17/22 21:12 Est GFR (Non-Af Amer) 91.1 ml/min 12/17/22 21:12 BUN/Creatinine Ratio 18.8 (10-20) 12/17/22 21:12 Glucose 111 mg/dl (70-99(Fasting)) H 12/17/22 21:12 Calcium 9.3 mg/dl (8.6-10.3) 12/17/22 21:12 Magnesium 2.0 mg/dl (1.7-2.4) 12/17/22 21:12 Total Bilirubin 0.4 mg/dl (0.2-1.0) 12/17/22 21:12 AST 23 U/L (13-39) 12/17/22 21:12 ALT 14 U/L (7-52) 12/17/22 21:12 Alkaline Phosphatase 77 U/L (34-104) 12/17/22 21:12 Troponin I High Sens 5.8 pg/ml (0-20) 12/17/22 21:12 Total Protein 7.0 gm/dl (6.0-8.3) 12/17/22 21:12 Albumin 4.1 gm/dl (3.4-5.0) 12/17/22 21:12 Globulin 2.9 gm/dl (2.5-4.0) 12/17/22 21:12 Albumin/Globulin Ratio 1.4 (0.9-2) 12/17/22 21:12 Lipase 16 U/L (11-82) 12/17/22 21:12 TSH 6.178 uIu/ml (0.300-4.500) H 12/17/22 21:12 Free T4 0.81 ng/dl (0.61-1.60) 12/17/22 21:12 Ethyl Alcohol mg/dL 20.3 mg/dl (<10.0) H 12/17/22 21:30 SARS-CoV-2, RNA, NAAT NEGATIVE (NEGATIVE) 12/17/22 21:34 Code Status & VTE Plan Code Status Full code VTE Prophylaxis Plan VTE Prophylaxis will be ordered: Yes PG Care Time/CCT Total # of Minutes Spent Total Time Spent with Patient: Total time spent is greater than 50% in coordination of care (as documented) at patient's floor/unit and/or counseling patient: Coding Level of Care Code 89316 INT INP/OBS CARE 3/75MIN Diagnoses Near syncope R55 Nausea & vomiting R11.2 Hypertension I10 PAD (peripheral artery disease) I73.9 Coronary artery disease I25.10 Associated angina: without angina Coronary Disease-Associated Artery/Lesion type: unspecified vessel or lesion type [place] vs. transplanted heart: [place] heart Cirrhosis K74.60 Thrombocytopenia D69.6 Current smoker F17.200 Dyslipidemia E78.5 Alcohol use disorder F10.90 (5) Coronary artery disease Associated angina: without angina Coronary Disease-Associated Artery/Lesion type: unspecified vessel or lesion type [place] vs. transplanted heart: [place] heart Qualified Code(s): I25.10 - Atherosclerotic heart disease of [place] coronary artery without angina pectoris
[2022-12-18] MEDS ORDERED: DEXTROSE 50% 50 ML SYRINGE IV PRN (01:11)
[2022-12-18] MEDS ORDERED: TRIAMCINOLONE ACET 0.5% CR 15 GM TUBE TOP PRN (01:11)
[2022-12-18] MEDS ORDERED: GLUCOSE 40% GEL 15 GM TUBE PO PRN (01:11)
[2022-12-18] MEDS ORDERED: CARBOHYDRATES FOR HYPOGLYCEMIA PO PRN (01:11)
[2022-12-18] MEDS ORDERED: GLUCOSE 10 TAB/TUBE PO PRN (01:11)
[2022-12-18] MEDS ORDERED: GLUCAGON FOR INJ 1 MG VIAL SQ PRN (01:11)
[2022-12-18] MEDS ORDERED: NITROGLYCERIN SL 0.4 MG/TAB TAB SL PRN (01:11)
[2022-12-18] MEDS ORDERED: ONDANSETRON INJ 2 MG/ML 2 ML VIAL IV PRN (01:11)
[2022-12-18] MEDS ORDERED: ACETAMINOPHEN 325 MG TAB PO PRN (01:11)
[2022-12-18] MEDS ORDERED: NSS + 20MEQ KCL 20 MEQ/1,000 ML BAG IV SCH (01:30)
[2022-12-18] MEDS: carvediloL 6.25 MG TAB PO SCH ×2 (01:46→09:12)
[2022-12-18] MEDS: DOXYCYCLINE HYCLATE 100 MG CAP PO SCH ×2 (01:47→09:13)
[2022-12-18 03:01] LABS: Hematocrit (blood only) 35.4 % (42.0-52.0); Hemoglobin 12.6 g/dl (14.0-18.0); Mean Corpuscular Volume 95.2 fL (80.0-100.0); Red Blood Count 3.72 M/uL (4.70-6.10); White Blood Count 9.95 K/ul (4.8-10.8)
[2022-12-18 03:02] LABS: Basophils # (auto) 0.07 K/uL (0-0.2); Basophils % (auto) 0.7 %; Eosinophils # (auto) 0.12 K/uL (0-0.50); Eosinophils % (auto) 1.2 %; Immature Granulocytes # (auto) 0.06 K/uL (0.01-0.20); Immature Granulocytes % (auto) 0.6 %; Lymphocytes # (auto) 1.31 K/uL (1.2-3.4); Lymphocytes % (auto) 13.2 %; Mean Corpuscular Hemoglobin 33.9 pg (25.0-34.0); Mean Corpuscular Hgb Conc 35.6 g/dL (32.0-36.0); Mean Platelet Volume 9.4 fL (9.4-12.4); Monocytes # (auto) 0.39 K/uL (0.11-0.59); Monocytes % (auto) 3.9 %; Neutrophils % (auto) 80.4 %; Platelet Count 223 K/uL (130-400); RDW Coefficient of Variation 12.6 % (11.5-14.5); RDW Standard Deviation 44.1 fL (36.4-46.3)
[2022-12-18] MEDS ORDERED: INSULIN ASPART PER UNIT CHARGE SC SCH (07:30)
--- NOTE | 2022-12-18 07:52 | XRay Report ---
XR chest 1V portable CLINICAL HISTORY: weakness TECHNIQUE: Single frontal radiograph of the chest was obtained. Comparison: Comparison is made to chest radiograph 03/19/2020 FINDINGS: No lines and tubes are seen. Calcified aortic knob is seen. The lungs are clear. No evidence of pleur al effusion or pneumothorax. IMPRESSION: No acute chest disease. ACT 112: Negative or not required by law. Electronically signed by: Андрей Sams M.D. 12/18/2022 7:51 AM
[2022-12-18 08:52] LABS: Albumin Level 3.6 gm/dl (3.4-5.0); Bilirubin,Total 0.4 mg/dl (0.2-1.0); Calcium 8.7 mg/dl (8.6-10.3); Magnesium 2.1 mg/dl (1.7-2.4); Potassium 3.9 mmol/L (3.5-5.1)
[2022-12-18 08:58] LABS: Albumin Globulin Ratio 1.4 (0.9-2); BUN Creatinine Ratio 21.2 (10-20); Creatinine Clr Calc Pharmacy 109.1 ml/min; Est GFR (African American) 114.3 ml/min; Est GFR (Non-African American) 98.6 ml/min; Globulin 2.6 gm/dl (2.5-4.0); Total Protein 6.2 gm/dl (6.0-8.3)
[2022-12-18] MEDS ORDERED: TIMOLOL MALEATE 0.5% OP SOLN 5 ML BTL OPB SCH (09:00)
[2022-12-18] MEDS ORDERED: ROSUVASTATIN CALCIUM 10 MG TAB PO SCH (09:00)
[2022-12-18] MEDS ORDERED: amLODIPine BESYLATE 5 MG TAB PO SCH (09:00)
[2022-12-18] MEDS ORDERED: hydroCHLOROthiazide 25 MG TAB PO SCH (09:00)
[2022-12-18] MEDS ORDERED: ASPIRIN 81 MG ECTAB PO SCH (09:00)
[2022-12-18] MEDS ORDERED: lisinopril 40 MG TAB PO SCH (09:00)
[2022-12-18 09:18] LABS: Estimated Average Glucose 105 mg/dl; Hemoglobin A1C 5.3 % (4.5-5.6)
--- NOTE | 2022-12-18 13:16 | Discharge Summary ---
Date of Service December 18, 2022 Admission HPI Per Admitting Provider The patient is a 67-year-old male with past medical history including dyslipidemia, tobacco use disorder, thrombocytopenia, cirrhosis, coronary disease, PAD, hypertension and dermatitis. The patient reports that he had his average 3-4 beers daily today, had some homemade deer beef jerky, and was cooking supper when he felt the symptoms as above. His , who is in the room now, reports that she thought she had almost lost him because he looks so bad. He was also describing associated sweats with the above symptoms. Is brought to the emergency department for assessment, and then referred for evaluation for a dmission. In the emergency department he did receive 1 L normal saline and aspirin 243 mg. He does have a history of coronary artery disease. Principal Diagnosis Syncope, dehydration Discharge Exam Constitutional WD/WN, vitals as above Respiratory normal respiratory effort, lungs clear to auscultation Cardiovascular RRR, no murmur, no edema Gastrointestinal (Abdomen) normal bowel sounds, soft, nontender, no hepatosplenomegaly Neurologic PERRL, EOMI, accommodation nl, no face palsy, no dysarthria Psychiatric A+Ox3, euthymic affect Discharge Data Allergies Allergy/AdvReac Type Severity Reaction Status Date / Time amoxicillin Allergy Intermediate Rash Verified 12/17/22 21:44 Consultations 12/17/22 23:05 ED Decision to Admit Stat Ordered Studies ECHO Hospital Course (1) Near syncope: (2) Nausea & vomiting: (3) Hypertension: (4) PAD (peripheral artery disease): (5) Coronary artery disease: (6) Cirrhosis: (7) Thrombocytopenia: (8) Current smoker: (9) Dyslipidemia: (10) Alcohol use disorder: Plan Near syncope/hypertension/CAD/OK history- The patient will be admitted to telemetry for serial cardiac enzymes, serial EKG's, cardiac rhythm monitoring and a 2-D echocardiogram with Dopplers. Multifactorial considerations but not limited to: Hypoglycemia, cardiac, alcohol related, hypotension Initial troponin negative at 5.8 Continue amlodipine, aspirin, Brilinta, carvedilol and lisinopril with hold parameters Hold HCTZ Patient does have a history of heart disease, which becomes the most important diagnosis to rule out at this time Advised alcohol and tobacco cessation Alcohol use disorder- Alcohol level 20.3 on admission Not expecting withdrawal, but will place on [facility] protocol Cessation counseling Hyperlipidemia- Continue rosuvastatin 10 mg daily Check a fasting lipid panel Dental infection- Complete 2 more days of doxycycline Tobacco use disorder- Cessation counseling Glaucoma- Continue timolol maleate Discharge Plan Discharge Items Patient Disposition: Home - Self-Care Reason For Visit: NEAR SYNCOPE Discharge Diagnosis: Syncope,dehydration Activity: Resume your previous activity Non-emergency contact: Primary Care Provider and Cycle Touring Guide Call non-emergency contact if: you have any medication questions and your symptoms worsen Follow-up/Referrals: Arpit Alvarado, [Primary Care Provider] - (Please follow up within 1 week) Diet: Heart Healthy Add Attending Provider Instructions: You were admitted after passing out. You were found to have evidence of dehydration on admission and were given IV fluids. You did not have a heart attack or stroke. You have not had any heart arrhythmias since being here. This is likely due to dehydration from taking a water pill, not drinking enough liquids, and excessive alcohol use. Please cut down your alcohol intake to no more than 1-2 beers per day. You will be set up with a 30 day event monitor to wear to make sure you're not having any arrhythmias of the heart. Please follow up with Dr. Etienne within 2 weeks. Pending Studies at Discharge: No Stand-Alone Forms: [facility], Smoking Cessation Medications and DC Order Prescriptions: Continued carvedilol 6.25 mg tablet 6.25 mg PO BID Qty: 180 3RF Rx Instructions: must administer with a meal/food rosuvastatin 10 mg tablet 10 mg PO DAILY Qty: 90 3RF lisinopril 40 mg tablet 40 mg PO DAILY Qty: 90 3RF hydrochlorothiazide 12.5 mg tablet 12.5 mg PO DAILY Qty: 90 3RF timolol maleate 0.5 % drops 1 drp OPB DAILY Rx Instructions: both eyes triamcinolone acetonide 0.5 % cream 1 applic TOP BID PRN (Reason: Rash) Qty: 15 1RF Brilinta 60 mg tablet 60 mg PO BID Qty: 60 11RF amlodipine 10 mg tablet 10 mg PO DAILY Qty: 90 3RF nitroglycerin [Nitrostat] 0.4 mg Tablet, Sublingual 0.4 mg sublingual PRN PRN (Reason: chest pain) Qty: 7 0RF Rx Instructions: every 5 mins up to 3 doses. If chest pain is unrelieved 5 minutes after 1 dose, call 05-22- aspirin 81 mg Tablet,Delayed Release (Dr/Ec) 81 mg PO QAM Qty: 30 0RF doxycycline hyclate 100 mg capsule 100 mg PO BID Rx Instructions: STARTED 12/04/22 FOR 15 DAYS. Discharge Orders: Discharge Order (Routine); Ordered 12/18/22 Ordered By: Meseret Rosales Admission Data Admit Date/Time: 12/17/22 23:57 Attending Provider: Meseret Rosales Admit Provider: Hunter Carranza Primary Care Provider: Arpit Alvarado Other Providers: Hunter Carranza Coding Diagnoses Near syncope R55 Nausea & vomiting R11.2 Hypertension I10 PAD (peripheral artery disease) I73.9 Coronary artery disease I25.10 Associated angina: without angina Coronary Disease-Associated Artery/Lesion type: unspecified vessel or lesion type [place] vs. transplanted heart: [place] heart Cirrhosis K74.60 Thrombocytopenia D69.6 Current smoker F17.200 Dyslipidemia E78.5 Alcohol use disorder F10.90
--- NOTE | 2022-12-18 13:26 | XCELERA ---
[id number] [id number]
--- NOTE | 2022-12-19 05:33 | Electrocardiogram Report ---
Test Reason : Blood Pressure : / mmHG Vent. Rate : 057 BPM Atrial Rate : 057 BPM P-R Int : 238 ms QRS Dur : 100 ms QT Int : 444 ms P-R-T Axes : 035 018 032 degrees QTc Int : 432 ms Sinus bradycardia with 1st degree A-V block Otherwise normal ECG When compared with ECG of 18-MAY-2020 14:21, TX interval has increased Confirmed by Fernando Ferreira ([id number]) on 12/19/2022 5:32:42 AM Referred By: REFERRED SELF Confirmed By:Fernando Ferreira
--- NOTE | 2022-12-19 05:40 | Electrocardiogram Report ---
Test Reason : Blood Pressure : / mmHG Vent. Rate : 064 BPM Atrial Rate : 064 BPM P-R Int : 218 ms QRS Dur : 100 ms QT Int : 442 ms P-R-T Axes : 051 013 036 degrees QTc Int : 455 ms Sinus rhythm with 1st degree A-V block Low voltage QRS Borderline ECG When compared with ECG of 17-DEC-2022 21:09, No significant change was found Confirmed by Fernando Ferreira ([id number]) on 12/19/2022 5:40:29 AM Referred By: REFERRED SELF Confirmed By:Fernando Ferreira
== END 2022-12-18 14:27 | disposition home or self-care (01) ==
LOC: ED 21:06 → INTOOBSV 23:57 → SUATTDRO 23:57 → 2E 23:57

== ENCOUNTER 2024-11-02 08:07 | Inpatient (IN) ==
--- NOTE | 2024-11-02 09:04 | Emergency Department Note ---
History of Present Illness General Chief complaint: Infection, Wound Stated complaint: WOUND ON LT HEEL, POSSIBLE INFECTION Time Seen by Provider: 11/02/24 09:03 History of Present Illness Maximum Pain Intensity: 6 This is a 69-year-old male that presents to the emergency department via private vehicle with complaints of "wound on left heel, possible infection". The patient notes that over the past few months he has had some dry, cracked skin on the heel of the left foot. Over the past weeks however it has opened up into a wound that is now nonhealing. He notes history of peripheral arterial disease. History of heart stent placement, currently on clopidogrel and low-dose aspirin. Patient notes that he has been applying antibiotic limit such as Neosporin and a bandage to the left heel without improvement of symptoms. He was placed on oral antibiotics about a week ago he notes and this was some sort of amoxicillin type medicine. He notes he developed a blister on the right foot as well as the hand and therefore this was stopped. He was then placed on doxycycline noted a reaction therefore this was stopped and then ultimately was placed on oral Bactrim which he is currently taking. The patient notes pain in the left heel. No trauma. No injury. No fevers, chills, nausea or vomiting. He does note a red/pink hue to the left foot that he notes is certainly different in the right foot. Home Medications Medication Instructions Recorded Confirmed Type aspirin 81 mg tablet,delayed 81 mg PO QAM #30 tabs 03/20/20 10/25/24 Rx release timolol maleate 0.5 % eye drops 1 drp OPB DAILY 12/10/21 10/25/24 History nitroglycerin 0.4 mg sublingual 0.4 mg sublingual PRN PRN chest 12/25/22 10/25/24 Rx tablet (Nitrostat) pain #20 tabs lisinopril 40 mg tablet 40 mg PO DAILY #90 tabs 11/18/23 10/25/24 Rx meclizine 12.5 mg tablet 12.5 mg PO TID PRN dizziness #30 07/20/24 10/25/24 Rx tabs amlodipine 10 mg tablet 10 mg PO DAILY #90 tabs 07/25/24 10/25/24 Rx carvedilol 6.25 mg tablet 6.25 mg PO BID #180 tabs 08/15/24 10/25/24 Rx hydrochlorothiazide 12.5 mg tablet 12.5 mg PO DAILY #90 tabs 09/15/24 10/25/24 Rx triamcinolone acetonide 0.5 % 1 applic topical BID PRN Rash #15 09/22/24 10/25/24 Rx topical cream grams rosuvastatin 10 mg tablet 10 mg PO DAILY #90 tabs 10/24/24 10/25/24 Rx doxycycline hyclate 100 mg capsule 100 mg PO BID #14 caps 10/25/24 10/25/24 Rx sulfamethoxazole 800 1 tab PO BID #14 tabs 10/26/24 Rx mg-trimethoprim 160 mg tablet (Bactrim DS) clopidogrel 75 mg tablet 75 mg PO DAILY #30 tabs 11/01/24 Rx Allergies Allergy/AdvReac Type Severity Reaction Status Date / Time amoxicillin Allergy Intermediate Rash Verified 11/02/24 12:14 Doxycycline Allergy Mild rash Uncoded 11/02/24 12:14 Past Med/Surg History Problem List (Updated 11/02/24 @ 23:19 by Vazquez Jenkins PA-C) Cellulitis (Acute) Arterial leg ulcer Lower extremity arterial insufficiency, severe, left (Acute) Screening for lung cancer Hypertension PAD (peripheral artery disease) (Acute) Coronary artery disease (Acute) Cirrhosis Alcohol use disorder Thrombocytopenia Current smoker (Acute) Dyslipidemia (Acute) Medical History Colon cancer screening FIT test 2019,05/2022. Colonoscopy 04/21/23 - Tubular adenoma Complete heart block STEMI (ST elevation myocardial infarction) Hepatitis C Completed Treatment Psoriasis Cataract, bilateral Surgical History [place] [place] of cataract surgery History of tooth extraction wisdom teeth History of tonsillectomy Family History Mother Thyroid cancer Father No problems noted. Denies family history of Ovarian cancer Prostate cancer Breast cancer Lung cancer Colorectal cancer Social History Smoking Status: Current every day smoker Tobacco Type: Cigarettes Age Started Using Tobacco: 14; packs per day: 0.5; Cigarettes Per Day: 6; Second Hand Exposure: No; Do You Dip or Chew Tobacco: No; Hx Alcohol Use: Yes Alcohol type: beer Alcohol Intake Frequency: 4 or More x per/Week Hx Substance Use: No Preferred Language: Danish Communication Ability: Effective Visual Impairment: Diminished Hearing Ability: Normal World Language Teacher Required: No Beliefs That Will Affect Care: None marital status: Single Current Living Situation: Significant Other Current Living Situation Comment: lives with girlfriend current occupational status: retired How many Children do You have: 0 Feels Safe at Home: Yes Childhood Exposure to Second-Hand Smoke: No Diet: low salt and regular caffeine: Yes Dental Care, Regularly: Yes Physical Activity Frequency: Daily Physical Activity Frequency Comment: walking and yoga Seatbelt Use: always Sunscreen Use: Yes Do you think of yourself as: straight/heterosexual Assistive Devices: Glasses Review of Systems A total of 10 systems reviewed and were otherwise negative Physical Exam Vital Signs Vital Signs - 24 hr 11/02/24 08:10 11/02/24 09:31 Temperature 36.5 C Temperature Source Temporal Artery Scan Pulse Rate 81 61 Respiratory Rate 18 Blood Pressure 150/81 H Blood Pressure Mean 104 Pulse Oximetry 99 Oxygen Delivery Method Room Air Sepsis Recent Fever Within 48 Hours No Sepsis New/Unexplained Change in Mental Status N/A Sepsis Action Taken by Nursing No Action Required VITAL SIGNS - Vital signs and nursing notes were reviewed. Mildly hypertensive, otherwise stable and afebrile. GENERAL -69-year-old male appearing his stated age who is in no acute distress. Communicates well with provider and answers questions appropriately. SKIN -2 cm wound anterior to posterior overlying the left calcaneus region within the soft tissues with surrounding scab-like formation and erythema throughout the entire left foot. HEAD - NC/AT. EYES - Sclera anicteric. MOUTH/OROPHARYNX - Without perioral cyanosis. NECK - Neck with FROM. No nuchal rigidity. LUNGS - Chest wall symmetric without accessory muscle use, intercostals retractions, or central cyanosis. Normal vesicular breath sounds CTA B/L. No wheezes, rales, or rhonchi appreciated. CARDIAC - RRR EXTREMITIES - No clubbing or peripheral cyanosis. Skin as above. Left foot and left ankle region erythematous with a heel wound noted. Left dorsalis pedis pulse detectable on the left but weak. +5/5 strength noted in UE/LE bilaterally. NEUROLOGIC - Cranial nerves II through XII grossly intact. PSYCH -alert, oriented and pleasant on exam Course Administered Medications Carvedilol (Carvedilol 6.25 Mg Tab) 6.25 mg PO BIDM [facility] Stop: 12/02/24 16:59 Last Admin: 11/02/24 18:25 Dose: 6.25 mg Documented By: DIONNE Heparin Sodium/Dextrose (Heparin 76572 Unit/500 Ml D5w) 25,000 units in 500 mls @ 26 mls/hr IV .[id number] [facility]; Protocol Stop: 12/02/24 17:29 Last Titration: 11/02/24 22:21 Dose: 1,300 units/hr, 26 mls/hr Documented By: BASIA Co-signed By: AZUL Admin: 11/02/24 13:57 Dose: 1,400 units/hr, 28 mls/hr Documented By: DIONNE Co-signed By: BASIA Morphine Sulfate (Morphine Sulfate 2 Mg/Ml Carp) 2 mg IV Q4H PRN PRN Reason: Breakthrough/severe pain Stop: 11/16/24 11:51 Last Admin: 11/02/24 14:42 Dose: 2 mg Documented By: DIONNE Discontinued Medications Diphenhydramine HCl (Diphenhydramine 50 Mg/Ml Vial) Confirm Administered Dose 50 mg .ROUTE .STK-MED ONE Stop: 11/02/24 13:13 Last Admin: 11/02/24 13:43 Dose: 50 mg Documented By: HANNAH Fentanyl Citrate (Fentanyl Citrate Pf 100 Mcg/2 Ml Vial) Confirm Administered Dose 100 mcg .ROUTE .STK-MED ONE Stop: 11/02/24 12:26 Last Increment: 11/02/24 13:40 Dose: 75 mcg Documented By: HANNAH Heparin Sodium (Porcine) (Heparin (Porcine) 1000 Unit/Ml 10 Ml ([employer]ian Blind Worker Use Only)) Confirm Administered Dose 10,000 units .ROUTE .STK-MED ONE Stop: 11/02/24 12:26 Last Admin: 11/02/24 13:41 Dose: 5,000 units Documented By: HANNAH Heparin Sodium/Dextrose (Heparin 38663 Unit/500 Ml D5w) Confirm Administered Dose 25,000 units IV .STK-MED ONE Stop: 11/02/24 13:38 Last Admin: 11/02/24 13:57 Dose: 1,400 units Documented By: HANNAH Co-signed By: DELVIN Heparin Sodium/Dextrose (Heparin Iv Adult Wt-Based Standard *No* Initial Bolus Protocol) 1 each IV ONE STA; Protocol Stop: 11/02/24 14:54 Last Admin: 11/02/24 15:28 Dose: Not Given Documented By: DIONNE Ceftriaxone Sodium (Rocephin) 2,000 mg in 50 mls @ 100 mls/hr IV NOW STA Stop: 11/02/24 11:26 Last Infusion: 11/02/24 12:08 Dose: Infused Documented By: Admin: 11/02/24 11:38 Dose: 100 mls/hr Documented By: SIOBHAN Vancomycin HCl 1,750 mg/ (Sodium Chloride) 535 mls @ 200 mls/hr IV NOW ONE Stop: 11/02/24 13:37 Last Infusion: 11/02/24 16:38 Dose: Infused Documented By: Admin: 11/02/24 13:57 Dose: 200 mls/hr Documented By: HANNAH Ioversol (Optiray 350) Confirm Administered Dose 1 ml .ROUTE .STK-MED ONE Stop: 11/02/24 12:26 Last Admin: 11/02/24 13:42 Dose: 75 ml Documented By: LONDON Lidocaine HCl (Lidocaine 1% Local 20 Ml Vial) Confirm Administered Dose 20 ml .ROUTE .STK-MED ONE Stop: 11/02/24 12:08 Last Admin: 11/02/24 12:47 Dose: 20 ml Documented By: LONDON Midazolam HCl (Midazolam Hcl 5 Mg/Ml 1 Ml Vial) Confirm Administered Dose 5 mg .ROUTE .STK-MED ONE Stop: 11/02/24 12:26 Last Increment: 11/02/24 13:42 Dose: 2 mg Documented By: HANNAH Nicardipine HCl (Nicardipine 2,000 Mcg/20 Ml Syr) Confirm Administered Dose 2,000 mcg .ROUTE .STK-MED ONE Stop: 11/02/24 12:28 Last Admin: 11/02/24 12:47 Dose: 2,000 mcg Documented By: LONDON Nitroglycerin/Dextrose (Nitroglycerin/D5w 100mcg/Ml 20ml Syr) Confirm Administered Dose 2,000 mcg .ROUTE .STK-MED ONE Stop: 11/02/24 12:28 Last Admin: 11/02/24 12:48 Dose: 2,000 mcg Documented By: LONDON Phenylephrine HCl (Phenylephrine 100mcg/Ml 5ml Syr) Confirm Administered Dose 100 mcg .ROUTE .STK-MED ONE Stop: 11/02/24 13:23 Last Admin: 11/02/24 13:43 Dose: 100 mcg Documented By: HANNAH Co-signed By: MICHELL Medical Decision Making Laboratory Data 11/02/24 09:17 11/02/24 21:18 Lab Results 11/02/24 Range/Units 09:17 WBC 5.77 (4.8-10.8) K/ul RBC 4.53 L (4.70-6.10) M/uL Hgb 15.3 (14.0-18.0) g/dl Hct 43.1 (42.0-52.0) % MCV 95.1 (80.0-100.0) fL MCH 33.8 (25.0-34.0) pg MCHC 35.5 (32.0-36.0) g/dL RDW Std Deviation 42.0 (36.4-46.3) fL RDW Coeff of Cj 11.9 (11.5-14.5) % Plt Count 233 (130-400) K/uL MPV 9.6 (9.4-12.4) fL Immature Gran % (Auto) 0.5 % Neut % (Auto) 68.1 % Lymph % (Auto) 10.6 % Barber % (Auto) 16.5 % Eos % (Auto) 3.3 % Baso % (Auto) 1.0 % Neut # (Auto) 3.93 (1.40-6.50) K/uL Lymph # (Auto) 0.61 L (1.20-3.40) K/uL Barber # (Auto) 0.95 H (0.11-0.59) K/uL Eos # (Auto) 0.19 (0.00-0.50) K/uL Baso # (Auto) 0.06 (0.00-0.20) K/uL Immature Gran # (Auto) 0.03 (0.01-0.20) K/uL PT 11.0 (9.0-12.0) Seconds INR 1.0 (0.9-1.1) Sodium 126 L (136-145) mmol/L Potassium 4.3 (3.5-5.1) mmol/L Chloride 93 L (98-107) mmol/L Carbon Dioxide 28 (21-32) mmol/L Anion Gap 5 (3-11) BUN 11 (6-23) mg/dl Creatinine 0.84 (0.6-1.4) mg/dl Est Cr Clr Drug Dosing Not Reportable eGFR 93.23 BUN/Creatinine Ratio 13.1 (10-20) Glucose 107 H (70-99(Fasting)) mg/dl Lactate 0.9 (0.4-2.0) mmol/L Calcium 9.7 (8.6-10.3) mg/dl Total Bilirubin 0.5 (0.2-1.0) mg/dl AST 22 (13-39) U/L ALT 17 (7-52) U/L Alkaline Phosphatase 82 (34-104) U/L Total Protein 7.6 (6.0-8.3) gm/dl Albumin 4.6 (3.4-5.0) gm/dl Globulin 3.0 (2.5-4.0) gm/dl Albumin/Globulin Ratio 1.5 (0.9-2) Procalcitonin < 0.02 (0-0.5) ng/ml Imaging Data Radiologist's Impression: Duplex Scan Lower Extremity Artery 11/02/24 09:11 US arterial duplex LE LT HISTORY: 69 years-old Male L leg non healing wound COMPARISON: Left foot radiographs of same day TECHNIQUE: Multiple real-time sonographic images of the left lower extremity arterial structures were obtained assessing grayscale appearance, color and spectral flow FINDINGS: Atherosclerosis. Monophasic waveforms noted throughout the entire leg. Dampened monophasic waveforms with spectral broadening noted within the left lower leg arteries. No definite flow identified within the dorsalis pedis artery. No significantly elevated peak systolic velocities identified to suggest high-grade stenosis. IMPRESSION: 1. Atherosclerosis with diffuse monophasic waveforms and diminished flow within the left lower leg. 2. No definite flow identified within the dorsalis pedis artery suggestive of age-indeterminate occlusion. ACT 112: Negative or not required by law. The above report was generated using voice recognition software. It may contain grammatical, syntax or spelling errors. Electronically signed by: Bryant Weldon M.D. 11/02/2024 11:33 AM XR foot LT min 3V routine CLINICAL HISTORY: Left calcaneal region pain, non healing wound COMPARISON: Left foot radiographs October 25, 2024. FINDINGS: Severe joint space narrowing with osteophytosis and subchondral sclerosis of the first and second MTP joint is again noted. Tarsometatarsal joints are intact. There are no fractures within the left foot. No areas of bony erosion within the calcaneus are identified. IMPRESSION: 1. No evidence for acute osteomyelitis within the left calcaneus. 2. 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 ACT 112: Negative or not required by law. Electronically signed by: Herman King M.D. 11/02/2024 10:00 AM MDM Narrative Patient was seen and evaluated as above in room B04. Review was performed of triage nursing notes and vital signs. I did review pertinent previous visits and patient history. After obtaining a thorough history and physical examination the above work up was performed. Patient presents today for evaluation of ongoing left heel wound with surrounding erythema currently on oral antibiotics. On assessment the left lower extremity is a reddened hue which may be cellulitic change from the left open heel wound however I do suspect a component of poor arterial flow to the extremity. Options of care were discussed with the patient. IV access with established. Labs were drawn. There is no leukocytosis or concerning anemia. Hyponatremia at 126 noted. No emergent metabolic disturbance. Procalcitonin and lactate without significant elevation. Blood culture pending. X-ray of the left foot does not show any evidence of osteomyelitis. I did obtain a Doppler study of the left lower extremity arterial system. Pending Doppler study, did proceed with plan for admission. I discussed the case with the hospitalist service. I did order IV antibiotics for coverage of potential secondary infection of this ulcer. I did review benefit versus risk of the antibiotics and through shared medical decision making we will proceed. No immediate issue or reaction noted with the antibiotics given here today. Ultrasound did result. There was atherosclerosis with diffuse monophasic waveforms and diminished flow within the left lower leg. No definite flow identified within the dorsalis pedis artery suggestive of age-indeterminate occlusion. This appears to be a progressively worsening issue, and do not suspect him to have an acute occlusion that occurred today. I do believe that further evaluation and management in the inpatient setting is warranted. Please refer to further documentation regarding his stay. GCS: 15 In the evaluation and treatment of this patient the following differential diagnoses were entertained: Cellulitis, arterial insufficiency, osteomyelitis, among others. Impression & Plan PAD (peripheral artery disease), Lower extremity arterial insufficiency, severe, left, Cellulitis Discharge Plan Visit Data Chief Complaint: Infection, Wound Stated Complaint: WOUND ON LT HEEL, POSSIBLE INFECTION ED Provider: Devaughn Mcdonald ED Midlevel Provider: Vazquez Jenkins Discharge Problem: PAD (peripheral artery disease), Lower extremity arterial insufficiency, severe, left, Cellulitis Patient Disposition: Admitted As Inpatient Condition: Good Discharge Instructions Interventions: ED Discharge Assessment Last Done: 11/02/24 12:00
[2024-11-02 09:46] LABS: Basophils # (auto) 0.06 K/uL (0.00-0.20); Eosinophils # (auto) 0.19 K/uL (0.00-0.50); Eosinophils % (auto) 3.3 %; Hematocrit (blood only) 43.1 % (42.0-52.0); Hemoglobin 15.3 g/dl (14.0-18.0); Immature Granulocytes # (auto) 0.03 K/uL (0.01-0.20); Immature Granulocytes % (auto) 0.5 %; Lymphocytes # (auto) 0.61 K/uL (1.20-3.40); Lymphocytes % (auto) 10.6 %; Mean Corpuscular Hemoglobin 33.8 pg (25.0-34.0); Mean Corpuscular Hgb Conc 35.5 g/dL (32.0-36.0); Mean Corpuscular Volume 95.1 fL (80.0-100.0); Mean Platelet Volume 9.6 fL (9.4-12.4); Monocytes # (auto) 0.95 K/uL (0.11-0.59); Monocytes % (auto) 16.5 %; Neutrophils # (auto) 3.93 K/uL (1.40-6.50); Neutrophils % (auto) 68.1 %; Platelet Count 233 K/uL (130-400); RDW Coefficient of Variation 11.9 % (11.5-14.5); Red Blood Count 4.53 M/uL (4.70-6.10); White Blood Count 5.77 K/ul (4.8-10.8)
[2024-11-02 10:01] LABS: Alanine Aminotransferase 17 U/L (7-52); Albumin Globulin Ratio 1.5 (0.9-2); Albumin Level 4.6 gm/dl (3.4-5.0); Alkaline Phosphatase 82 U/L (34-104); Anion Gap 5 (3-11); Aspartate Aminotransferase 22 U/L (13-39); BUN Creatinine Ratio 13.1 (10-20); Bilirubin,Total 0.5 mg/dl (0.2-1.0); Blood Urea Nitrogen 11 mg/dl (6-23); Calcium 9.7 mg/dl (8.6-10.3); Carbon Dioxide 28 mmol/L (21-32); Chloride 93 mmol/L (98-107); Glucose 107 mg/dl (70-99(Fasting)); Potassium 4.3 mmol/L (3.5-5.1); Sodium 126 mmol/L (136-145); Total Protein 7.6 gm/dl (6.0-8.3)
--- NOTE | 2024-11-02 10:01 | XRay Report ---
XR foot LT min 3V routine CLINICAL HISTORY: Left calcaneal region pain, non healing wound COMPARISON: Left foot radiographs October 25, 2024. FINDINGS: Severe joint space narrowing with osteophytosis and subchondral sclerosis of the first and second MTP joint is again noted. Tarsometatarsal joints are intact. There are no fractures within th e left foot. No areas of bony erosion within the calcaneus are identified. IMPRESSION: 1. No evidence for acute osteomyelitis within the left calcaneus. 2. 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 ACT 112: Negative or not required by law. Electronically signed by: Herman King M.D. 11/02/2024 10:00 AM
--- NOTE | 2024-11-02 10:39 | History & Physical Report ---
Date of Service November 02, 2024 Assessment & Plan (1) Lower extremity arterial insufficiency, severe, left: Plan: 69-year-old male with a history of severe PAD, CAD with history of PCI and ongoing tobacco use who presents with evidence of chronic nonhealing left art erial insufficiency ulcer with possible superimposed cellulitis is recommended for both management of arterial insufficiency, and cellulitis worsening following amoxicillin/doxycycline/Bactrim. Left foot cellulitis with imparied healing due to PAD - Wound x several months, worsened few weeks, red/painful last week Suspect predominant symptoms are due to arterial insufficiency and with clear insufficiency ulcer on the left heel and dorsal second digit however heel is with slight demarcated erythema with some tenderness. Cellulitis overall appears mild, suspect most of the symptoms are from general insufficiency. Will continue coverage with Rocephin. There is no purulence or discharge present, vancomycin held. Left foot x-ray 3 view: No evidence of osteo. No acute findings. No signs of sepsis. Blood cultures pending. Procalcitonin normal, no leukocytosis, lactate is normal, afebrile. Severe left PAD With DEE DEE less than 0.4, and high risk of tissue necrosis in 2022 Will treat infection as noted, vascular consulted Arterial duplex pending On ER exam foot is warm. LEFT heel: 2cm linear wound with central eschar, and surrounding demarcated erythema. Dry. No discharge at time of admission. LEFT 2nd digit with ~1cm arterial insufficiency ulcer, dry on the dorsal aspect.LEFT: DP/PT intact to doppler with legs hanging over bed. Reduced monophasic DP flow @ L DP while supine Vascular/Dr. Etienne consulted. Anticipate CT angiogram, possible intervention this afternoon. CAD History of PCI RCA 02/2020, in-stent restenosis post PCI 04/2020 Echo 12/11: EF 65-70%. Normal RVSP. No significant valvular abnormalities. Stable compared to 02/2020. - Continue DAPT, statin, BB, VICKI, rosuvastatin Patient has not had any chest pain, chest pressure and denies recent ischemia with activity Hyponatremia 126, trended every 6 hours Urine sodium, urine osmolality pending. DDx includes potomania, SIADH, solute depletion NPO. If urine sodium is elevated fluid restrict. Compensated hep C virus, history of alcohol cirrhosis S/p sofosbuvir/velpatasvir 12-week treatment 2020 Continued alcohol use of approximately 2 beers daily History of small esophageal varices noted 10/2022. No prior history of ascites, leg swelling, GI bleed. No decompensation on admission. LFTs are normal. Coags added. ETOH Use -Endorses 5 days/week alcohol use, 1-2 beers at most in a sitting. Cessation recommended given underlying cirrhosis Reports that he goes a few days each week concurrently without alcohol and no withdrawal symptoms. Suspect low risk based on this however we will keep on a to assess at risk protocol Tobacco use PFTs 11/2019: FVC 3.61 (78% predicted), FEV1 2.58 (72% predicted), FEV1/FVC 72% (92% predicted). Torsional FEV1/FVC reduction with normal ratio, no evidence of obstructive disease Cessation recommended Declines nicotine patch at time of assessment. Patient down to approximately 5 cigarettes/day. Cessation recommended, especially given significant PAD to which patient reports he is both agreeable and now motivated due to the progression of his PAD DVT prophylaxis: Lovenox Disposition: Full code Diet: N.p.o. pending vascular evaluation, postintervention or if no intervention until midnight can place on a heart healthy diet Disposition: PCU (2) Arterial leg ulcer: (3) Cellulitis: (4) Hypertension: (5) PAD (peripheral artery disease): (6) Cirrhosis: (7) Alcohol use disorder: (8) Thrombocytopenia: (9) Current smoker: History of Present Illness Primary Care Provider: Arpit Alvarado DO Alessandro is a 69-year-old male with a past medical history of nonhealing left heel wound on outpatient doxycycline 100 mg p.o. twice daily, peripheral artery disease with severe right external iliac disease DEE DEE 0.36, and moderate left- sided disease DEE DEE 0.56 08/2023 with some right lower extremity claudication, CAD with inferior VT RCA PCI 02/2020 in-stent restenosis post PCI 04/2020, hypertension, hyperlipidemia, tobacco use, and hepatitis C presents emergency department with worsening left heel healing wound with concern for secondary cellulitis. Alessandro is seen at the bedside. Several months of nonhealing wound on his LEFT foot. Gradually worsening. Pain first started a few months ago around a dry crack in the callus. Wound did not heal, and callus would split an dcrack. Air in his house is dry due to a woodstove. Did clean the callus with sandpaper which seemed to help. In the last few weeksd (~4 weeks) wound seemed to open up much more. 3 weeks ago d'started to look more nasty' L foot now goes completely numb while sleeping Pressure hurts his heel, but separate from this does have pain going up and down stairs which is worse in his L foot which improves of ~1 minute. Tends to have a lot of pain when laying in bed as well. Does find he gets some relief haning his legs over the edge of the bed at night. No chest pain No shortness of breath No fevers or chills. Feels cold over the winter, but not 'chills.' No nausea, vomiting, diarrhea Triple Abx ointment and bandaids daily, have not helped much. Took AM medications. Still on ASA and Plaavix. Rosuvastatin, hctz, lisinopril, amlodipine, carvedilol. +tobacco use. 'Down to a less than 1/2ppd,around 5 cigarettes per day'. Endorses motivation to quit now that his PAD has worsened. Declines nicotine patch, but will ask if he changes his mind. Medical History: Reviewed Medications: Reviewed Surgical History: Reviewed Family history: Reviewed Allergies: Reviewed Social History: FOrmer heavy ETOH use. 'Now 1-2 beers a day at most, and 2 ETOH free days each week.' No history of withdrawal or shakes. Code Status: Surrogate DM would be girlfriend Isaura Beckford and/or his brother Ajay Robert. Full Code. Allergies Allergy/AdvReac Type Severity Reaction Status Date / Time amoxicillin Allergy Intermediate Rash Verified 10/25/24 09:54 Doxycycline Allergy Mild rash Uncoded 10/26/24 17:52 Home Medications Medication Instructions Recorded Confirmed Type aspirin 81 mg tablet,delayed 81 mg PO QAM #30 tabs 03/20/20 10/25/24 Rx release timolol maleate 0.5 % eye drops 1 drp OPB DAILY 12/10/21 10/25/24 History nitroglycerin 0.4 mg sublingual 0.4 mg sublingual PRN PRN chest 12/25/22 10/25/24 Rx tablet (Nitrostat) pain #20 tabs lisinopril 40 mg tablet 40 mg PO DAILY #90 tabs 11/18/23 10/25/24 Rx meclizine 12.5 mg tablet 12.5 mg PO TID PRN dizziness #30 07/20/24 10/25/24 Rx tabs amlodipine 10 mg tablet 10 mg PO DAILY #90 tabs 07/25/24 10/25/24 Rx carvedilol 6.25 mg tablet 6.25 mg PO BID #180 tabs 08/15/24 10/25/24 Rx hydrochlorothiazide 12.5 mg tablet 12.5 mg PO DAILY #90 tabs 09/15/24 10/25/24 Rx triamcinolone acetonide 0.5 % 1 applic topical BID PRN Rash #15 09/22/2401/13 Rx topical cream grams rosuvastatin 10 mg tablet 10 mg PO DAILY #90 tabs 10/24/24 10/25/24 Rx doxycycline hyclate 100 mg capsule 100 mg PO BID #14 caps 10/25/24 10/25/24 Rx sulfamethoxazole 800 1 tab PO BID #14 tabs 10/26/24 Rx mg-trimethoprim 160 mg tablet (Bactrim DS) clopidogrel 75 mg tablet 75 mg PO DAILY #30 tabs 11/01/24 Rx Past Med/Surg History Problem List (Updated 11/02/24 @ 11:34 by Lee Swain MD) Cellulitis Arterial leg ulcer Lower extremity arterial insufficiency, severe, left Screening for lung cancer Hypertension PAD (peripheral artery disease) Coronary artery disease (Acute) Cirrhosis Alcohol use disorder Thrombocytopenia Current smoker (Acute) Dyslipidemia (Acute) Medical History Colon cancer screening FIT test 2019,05/2022. Colonoscopy 04/21/23 - Tubular adenoma Complete heart block STEMI (ST elevation myocardial infarction) Hepatitis C Completed Treatment Psoriasis Cataract, bilateral Surgical History H/O [place]23 [place] [place] of [place] surgery History of tooth extraction wisdom teeth History of tonsillectomy Family History Mother Thyroid cancer Father No problems noted. Denies family history of Ovarian cancer Prostate cancer Breast cancer Lung cancer Colorectal cancer Social History Smoking Status: Current every day smoker Tobacco Type: Cigarettes Age Started Using Tobacco: 14; packs per day: 0.5; Cigarettes Per Day: 10; Second Hand Exposure: Yes; Do You Dip or Chew Tobacco: No; Hx Alcohol Use: Yes Alcohol type: beer Alcohol Intake Frequency: 4 or More x per/Week Hx Substance Use: Yes Last Used Substance: Days (ago) Last Used Substance Other:: once within last month Preferred Language: Belarusian Communication Ability: Effective Visual Impairment: Diminished Hearing Ability: Normal Hydrogenation Still Operator Required: No Beliefs That Will Affect Care: None marital status: Single Current Living Situation: Significant Other Current Living Situation Comment: with Girlfriend Susan Turner current occupational status: retired How many Children do You have: 0 Feels Safe at Home: Yes Childhood Exposure to Second-Hand Smoke: No Diet: low salt and regular caffeine: Yes Dental Care, Regularly: Yes Physical Activity Frequency: Daily Physical Activity Frequency Comment: walking and yoga Seatbelt Use: always Sunscreen Use: Yes Do you think of yourself as: straight/heterosexual Assistive Devices: Glasses Physical Exam Physical Exam: General: A&Ox3. NAD. Cooperative. HEENT: Atraumatic, normocephalic. Vision/hearing grossly intact. Pulm: CTAB A&P. -wheezes, -rales, -rhonchi. Symmetrical chest rise. No increased work of breathing. No respiratory distress. Cardiac: RRR, -mrg. Radial pulses intact and symmetrical. Abdominal: Nontender, nondistended, soft. BS present. RIGHT medial plantar foot: ~3cm round healing blister. LEFT heel: 2cm linear wound with central eschar, and surrounding demarcated erythema. Dry. No discharge at time of admission. LEFT 2nd digit with ~1cm arterial insufficiency ulcer, dry on the dorsal aspect LEFT: DP/PT intact to doppler with legs hanging over bed. Reduced DP flow on L foot on supine exam. Ankle dorsi/plantarflexion 5/5 bilat, sensation to soft touch intact in feet, calf, and shins bilat Results & Data Results & Data Vital Signs (Past 12 Hours) Vital Signs Temp Pulse Resp BP Pulse Ox O2 Del Method 11/02/24 09:31 61 11/02/24 08:10 36.5 C 81 18 150/81 H 99 Room Air PG Care Time/CCT Total # of Minutes Spent Total Time Spent with Patient: Total time spent is greater than 50% in coordination of care (as documented) at patient's floor/unit and/or counseling patient: Coding Level of Care Code 52569 INT INP/OBS CARE 3/75MIN Diagnoses Lower extremity arterial insufficiency, severe, left I73.9 Arterial leg ulcer L97.909 Cellulitis L03.90 Hypertension I10 PAD (peripheral artery disease) I73.9 Cirrhosis K74.60 Alcohol use disorder F10.90 Thrombocytopenia D69.6 Current smoker F17.200
[2024-11-02] MEDS ORDERED: VANCOMYCIN CONSULT ACTIVE PRN (10:57)
--- NOTE | 2024-11-02 11:35 | Ultrasound Report ---
US arterial duplex LE LT HISTORY: 69 years-old Male L leg non healing wound COMPARISON: Left foot radiographs of same day TECHNIQUE: Multiple real-time sonographic images of the left lower extremity arterial structures were obtained assessing grayscale appearance, color and spectral flow FINDINGS: Atherosclerosis. Monophasic waveforms noted throughout the entire leg. Dampened monophasic waveforms with spectral broadening noted within the left lower leg arteries. No definite flow identified within the dorsalis pedis artery. No significantly elevated peak systolic velocities identified to suggest high-grade stenosis. IMPRESSION: 1. Atherosclerosis with diffuse monophasic waveforms and diminished flow within the left lower leg. 2. No definite flow identified within the dorsalis pedis artery suggestive of age-indeterminate occlu elan. ACT 112: Negative or not required by law. The above report was generated using voice recognition software. It may contain grammatical, syntax o r spelling errors. Electronically signed by: Bryant Weldon M.D. 11/02/2024 11:33 AM
[2024-11-02] MEDS: cefTRIAXone SODIUM 2,000 MG/50 ML BAG IV STA (11:38)
[2024-11-02] MEDS ORDERED: ACETAMINOPHEN 325 MG TAB PO PRN (11:52)
--- NOTE | 2024-11-02 11:59 | Vascular Medicine Consultation ---
Date of Consultation November 02, 2024 Assessment & Plan (1) Lower extremity arterial insufficiency, severe, left: 2. Left lower extremity second toe, heel ulcer 3. CAD --Inferior [place] status post RCA PCI 02/2020 --RCA in-stent restenosis post PCI 05/18/20 --mild nonculprit disease 4. Hypertension--at goal on CCB, BB, thiazide, VICKI 5. Dyslipidemia--moderate intensity statin, LDL at goal 6. Ongoing tobacco use 7. Hepatitis C stable from a cardiac standpoint. Patient seen today in the setting of CLI with non-healing, superficial LE ulceration and rest pain. Exam and non-invasive vascular testing suggestive of severe arterial insufficiency. Review of prior arterial imaging and repeat duplex today suggestive of multilevel disease with possible new occlusion of left popliteal artery. Threatened limb would benefit from revascularization. Will plan on left lower extremity angiogram today via radial artery. 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 If has disease amenable to intervention may require additional antegrade access via left DIESEL CRANE OPERATOR. Discussed risks, benefits, alternatives of procedure with Mr. Robert and he would like to proceed. Further recommendations pending findings. History of Present Illness History of Present Illness Mr. Robert is a very pleasant 69-year-old man with a history of CAD post prior PCI and known lower extremity PAD seen today in the ER with new left lower extremity rest pain and nonhealing ulcers. Other medical issues include hypertension, dyslipidemia, hepatitis C and ongoing tobacco abuse. Patient known to me from prior cardiac care. Had inferior STEMI 02/2020 treated with 2 TOM, later 04/2020 had recurrent angina with mid RCA ISR treated with additional TOM. Stable from a cardiac standpoint since that time. He has had long-term bilateral lower extremity claudication. Most recent ultrasound 08/2023 (right DEE DEE 0.36, TBI 0.317, left DEE DEE 0.56, TBI 0.48) with severe calcified distal right EIA disease and left DIESEL CRANE OPERATOR and mid popliteal disease. Also has known left subclavian artery stenosis. Presented today with small superficial ulcers involving distal aspect of second digit on left foot and ulcer over left posterior heel. States ulcers have been present for months and largely unchanged. Recently treated by primary care for possible cellulitis. Also reports resting pain/tingling in his left foot over the last few weeks more notable if lying flat and improved with pain his leg off the bed. Repeat arterial duplex today shows diminished, monophasic waveforms in distal popliteal and no significant flow in VALENCIA/peroneal. Allergies Allergy/AdvReac Type Severity Reaction Status Date / Time amoxicillin Allergy Intermediate Rash Verified 11/02/24 12:14 Doxycycline Allergy Mild rash Uncoded 11/02/24 12:14 Home Medications Medication Instructions Recorded Confirmed Type aspirin 81 mg tablet,delayed 81 mg PO QAM #30 tabs 03/20/20 10/25/24 Rx release timolol maleate 0.5 % eye drops 1 drp OPB DAILY 12/10/21 10/25/24 History nitroglycerin 0.4 mg sublingual 0.4 mg sublingual PRN PRN chest 12/25/22 10/25/24 Rx tablet (Nitrostat) pain #20 tabs lisinopril 40 mg tablet 40 mg PO DAILY #90 tabs 11/18/23 10/25/24 Rx meclizine 12.5 mg tablet 12.5 mg PO TID PRN dizziness #30 07/20/24 10/25/24 Rx tabs amlodipine 10 mg tablet 10 mg PO DAILY #90 tabs 07/25/24 10/25/24 Rx carvedilol 6.25 mg tablet 6.25 mg PO BID #180 tabs 08/15/24 10/25/24 Rx hydrochlorothiazide 12.5 mg tablet 12.5 mg PO DAILY #90 tabs 09/15/24 10/25/24 Rx triamcinolone acetonide 0.5 % 1 applic topical BID PRN Rash #15 09/22/24 10/25/24 Rx topical cream grams rosuvastatin 10 mg tablet 10 mg PO DAILY #90 tabs 10/24/24 10/25/24 Rx doxycycline hyclate 100 mg capsule 100 mg PO BID #14 caps 10/25/24 10/25/24 Rx sulfamethoxazole 800 1 tab PO BID #14 tabs 10/26/24 Rx mg-trimethoprim 160 mg tablet (Bactrim DS) clopidogrel 75 mg tablet 75 mg PO DAILY #30 tabs 11/01/24 Rx Patient History Medical History Colon cancer screening FIT test 2019,05/2022. Colonoscopy 04/21/23 - Tubular adenoma Complete heart block STEMI (ST elevation myocardial infarction) Hepatitis C Completed Treatment Psoriasis Cataract, bilateral Surgical History H/O colonoscopy 04/2023 [place] [place] History of cataract surgery History of tooth extraction wisdom teeth History of tonsillectomy Family History Mother Thyroid cancer Father No problems noted. Denies family history of Ovarian cancer Prostate cancer Breast cancer Lung cancer Colorectal cancer Social History Smoking Status: Current every day smoker Tobacco Type: Cigarettes Age Started Using Tobacco: 14; packs per day: 0.5; Cigarettes Per Day: 10; Second Hand Exposure: Yes; Do You Dip or Chew Tobacco: No; Hx Alcohol Use: Yes Alcohol type: beer Alcohol Intake Frequency: 4 or More x per/Week Hx Substance Use: Yes Last Used Substance: Days (ago) Last Used Substance Other:: once within last month Preferred Language: Vietnamese Communication Ability: Effective Visual Impairment: Diminished Hearing Ability: Normal Manufacturing Mechanic Required: No Beliefs That Will Affect Care: None marital status: Single Current Living Situation: Significant Other Current Living Situation Comment: with Girlfriend Susan Turner current occupational status: retired How many Children do You have: 0 Feels Safe at Home: Yes Childhood Exposure to Second-Hand Smoke: No Diet: low salt and regular caffeine: Yes Dental Care, Regularly: Yes Physical Activity Frequency: Daily Physical Activity Frequency Comment: walking and yoga Seatbelt Use: always Sunscreen Use: Yes Do you think of yourself as: straight/heterosexual Assistive Devices: Glasses Review of Systems Review of Systems: All systems reviewed & are unremarkable except as noted in HPI & below Physical Exam Physical Exam: General: Comfortable, smells of smoke HEENT: Sclerae anicteric left carotid bruit Lungs: Clear to auscultation bilaterally Cardiac: Regular rate and rhythm, no murmurs. Vascular: 2+ radial bilaterally, Nonpalpable femoral and popliteal pulses bilaterally Nonpalpable DP/PT. DP/PT on left none dopplerable while lying flat. Sluggish capillary refill on left Subcentimeter superficial ulcer over dorsal aspect of distal second digit without surrounding erythema or drainage. Small, 1 cm linear superficial ulcer on posterior heel without surrounding erythema. Abdomen: Soft, nontender Extremities: Well perfused, no peripheral edema Neuro: Sensation intact to light touch distally bilaterally Psych: Alert orient x3, normal affect and mood Results & Data Vital Signs (Past 12 Hours) Vital Signs Temp Pulse Resp BP Pulse Ox O2 Del Method 11/02/24 09:31 61 11/02/24 08:10 97.7 F 81 18 150/81 H 99 Room Air PG Care Time/CCT Total # of Minutes Spent Total Time Spent with Patient: Total time spent is greater than 50% in coordination of care (as documented) at patient's floor/unit and/or counseling patient: Coding Level of Care Code 98496 INT INP/OBS CARE 3/75MIN Diagnoses Lower extremity arterial insufficiency, severe, left I73.9
[2024-11-02] MEDS ORDERED: cefTRIAXone SODIUM 1,000 MG/50 ML BAG IV ONE (12:00)
[2024-11-02] MEDS: LIDOCAINE 1% LOCAL 20 ML VIAL ONE (12:47)
[2024-11-02] MEDS: niCARdipine 2,000 MCG/20 ML SYR ONE (12:47)
[2024-11-02] MEDS: NITROGLYCERIN/D5W 100MCG/ML 20ML SYR ONE (12:48)
[2024-11-02] MEDS: fentaNYL citrate PF 100 MCG/2 ML VIAL ONE (13:40)
[2024-11-02] MEDS: HEPARIN (PORCINE) 1000 UNIT/ML 10 ML (CATH LAB USE ONLY) ONE (13:41)
[2024-11-02] MEDS: MIDAZOLAM HCL 5 MG/ML 1 ML VIAL ONE (13:42)
[2024-11-02] MEDS: OPTIRAY 350 ONE (13:42)
[2024-11-02] MEDS: PHENYLEPHRINE 100MCG/ML 5ML SYR ONE (13:43)
[2024-11-02] MEDS: diphenhydrAMINE 50 MG/ML VIAL ONE (13:43)
[2024-11-02] MEDS: HEPARIN 25000 UNIT/500 ML D5W 25,000 UNITS/500 ML BAG IV SCH (13:57)
[2024-11-02] MEDS: HEPARIN 25000 UNIT/500 ML D5W IV ONE (13:57)
[2024-11-02] MEDS: VANCOMYCIN HCL 1,750 MG in SODIUM CHLORIDE 0.9% 500 ML IV ONE (13:57)
--- NOTE | 2024-11-02 14:20 | Pre Anesthesia Assessment ---
Date of Service November 02, 2024 Pre Sedation Assessment Vital Signs Temp Pulse Pulse Resp BP BP Pulse Ox 11/02/24 13:54 71 17 127/66 98 11/02/24 12:06 72 20 166/69 H 100 11/02/24 09:31 61 11/02/24 08:10 97.7 F 81 18 150/81 H 99 O2 Del Method 11/02/24 13:54 Room Air 11/02/24 12:06 Room Air 11/02/24 09:31 11/02/24 08:10 Room Air Pre-Sedation Airway Assessment Smoking Status: Current every day smoker Hx Sleep Apnea: No Hx Difficult Intubation: No Short, Thick Neck: No Thyromental Distance: > or= 3.5 Finger Breadths Oral Cavity: + Chipped Teeth and + Dentures Mallampati Class: III ASA: ASA3 NPO Status Date of Last Intake of Fluids: 11/02/24 Time of Last Intake of Fluids: 08:00 Date of Last Intake of Solid Food: 11/01/24 Time of Last Intake of Solid Foods: 18:30 Notes The planned sedation has been discussed with the patient. Informed Consent was obtained. I have identified the patient, determined the appropriateness of sedation and have assessed the patient immediately prior to the procedure. All medicine(s) and interventions are by my order.
--- NOTE | 2024-11-02 14:20 | Post Anesthesia Assessment ---
Date of Service November 02, 2024 Post Sedation Assessment Vital Signs Temp Pulse Pulse Resp BP BP Pulse Ox 11/02/24 13:54 71 17 127/66 98 11/02/24 12:06 72 20 166/69 H 100 11/02/24 09:31 61 11/02/24 08:10 97.7 F 81 18 150/81 H 99 O2 Del Method 11/02/24 13:54 Room Air 11/02/24 12:06 Room Air 11/02/24 09:31 11/02/24 08:10 Room Air Recovery Score Activity: Moves 4 extremities Respiration: Deep Breath/Cough Circulation: +/-20% PreAnes Value Consciousness: Fully Awake Oxygen Saturation: > 92% On Room Air Post Anesthesia Score: 10 Discharge Sedation Level of Care: Fast Track Phase II Post Sedation Plan On clinical assessment, the patient appears to have tolerated the sedation without complications. Patient is recovering as anticipated. Patient will continue to be monitored by nursing and may be discharged when sedation discharge criteria are met per below protocol. Upon Completions of procedure up to 15 minutes continue every 5 minute vital signs and the P.A.R. score; then discharge to a Phase I or Fast Track to Phase II per the following guidelines: * Discharge Patient to appropriate Phase II area if PAR is 8 or greater or return to pre- procedure baseline. The post - procedure orders will be as directed. * If PAR score is less than 8 or not return to pre-procedure baseline then patient will follow Phase I monitoring till PAR is reached for Phase II. The Phase I may be done in procedure room or may call to secure a Phase I area. * If naloxone or flumazenil are used for reversal, hold in Phase I for continued monitoring from when last reversal dose was given for a minimum of 60 minutes or longer pending the nurse and/or physician discretion of patient condition before discharge to Phase II. Please call the Sedation Physician to re-evaluate and complete post-note for discharge to Phase II area. Do NOT discharge from procedure sedation or Phase 1 until post- sedation evaluation note is complete by procedure /sedation MD Sedation Discharge Instructions to be given to the patient at discharge to home.
--- NOTE | 2024-11-02 14:23 | Endovascular Procedure Note ---
PG Endovascular Procedure Rpt Pre & Post Diagnosis Peripheral arterial disease I identified the patient and participated in the time-out.: Yes Procedure Operation Date: 11/02/24 12:00 Actual Procedures p Cineradiography w/Routine Exam - Jose Etienne MD Surgeon Jose Etienne MD Rehabilitation Program Coordinator Salome Estimated Blood Loss 10 Findings See Below Right lower extremity-- -Common iliac - calcified, 60% ostial stenosis -External iliac -- heavily calcified 100% occlusion just after take-off internal iliac. -Internal iliac -- 95% ostial, provides collaterals to distal LIABILITY ANALYST. -LIABILITY ANALYST--occluded, reconstitutes distally Left lower extremity-- -Common iliac -- 50% mid stenosis with calcified nodule (no gradient across stenosis) -External iliac -- 60-70% proximal stenosis -Internal iliac -- 50% ostial stenosis. -LIABILITY ANALYST--99% acute appearing stenosis with sluggish distal flow. -SFA - Sluggish flow, calcified with 50% mid, distal disease -Popliteal -- poorly visualized but appears heavily calcified and potentially occluded in mid-distal segment. Anesthesia Type RN Sedation Radiation Exposure (mGv) Radiation (mGy): 531 Contrast Contrast: 75 Complications none Disposition Disposition: PCU Description of Procedure LT radial artery access obtained under ultrasound guidance, short 5Fr sheath placed Abdominal aortogram with pigtail. Selective angiography with MPA placed to left external iliac artery Elective angiography of right lower extremity with MPA placed to right common iliac artery Contrast used: 75 Moderate sedation:[id number] Access closure: TR band Summary: 1. Left lower extremity 50% mid MIKE, 60-70% proximal 99% mid LIABILITY ANALYST with sluggish distal flow, acute appearing Popliteal poorly visualized but appears heavily calcified and possibly occluded 2. Right lower extremity 60% ostial MIKE 100% occluded proximal external iliac 95% ostial internal iliac Distal LIABILITY ANALYST reconstitutes via collaterals Recommendations: Consult vascular surgery for management of complex multilevel disease and possible endarterectomy of left LIABILITY ANALYST. I attest to the content of the Intraoperative Record and any orders documented therein. Any exceptions are noted below. Vascular Charges Angiography/Venography Procedure 1: Angiography/Venography charges: [id number] Initial 2nd order abd, pelvic or LE branch Procedure 2: Angiography/Venography charges: [id number] Aortography, abd + b/l iliofem LE, catheter, radiological S&I Additional Services Procedure 1: Additional Services Charges: 08705 Ultrasound guidance - vascular access Procedure 2: Additional Services Charges: 09401 Moderate sedation initial 15 min Procedure 3: Additional Services Charges: 90685 Moderate sedation, each additional 15 min
[2024-11-02] MEDS ORDERED: LORazepam 2 MG/1 ML VIAL IV PRN (14:38)
[2024-11-02] MEDS ORDERED: POLYETHYLENE (MIRALAX) 17 GM PACK PO PRN (14:38)
[2024-11-02] MEDS ORDERED: ONDANSETRON INJ 2 MG/ML 2 ML VIAL IV PRN (14:38)
[2024-11-02] MEDS: MoRPHine SULFATE 2 MG/ML CARP IV PRN (14:42)
[2024-11-02] MEDS: Heparin IV Adult Wt-Based Standard *NO* INITIAL Bolus Protocol IV STA (15:28)
[2024-11-02 17:43] LABS: BUN Creatinine Ratio 12.7 (10-20); Calcium 9.2 mg/dl (8.6-10.3); Creatinine Clr Calc Pharmacy 88.6 ml/min
[2024-11-02] MEDS: carvediloL 6.25 MG TAB PO SCH (18:25)
[2024-11-02 21:46] LABS: BUN Creatinine Ratio 14.6 (10-20); Calcium 8.8 mg/dl (8.6-10.3); Creatinine Clr Calc Pharmacy 78.6 ml/min; Potassium 4.1 mmol/L (3.5-5.1)
[2024-11-02 22:17] LABS: ANTI-Xa, UFH(UnfractionatedHep 0.76 IU/ml (0.3-0.7)
[2024-11-03 04:22] LABS: Basophils # (auto) 0.08 K/uL (0.00-0.20); Basophils % (auto) 1.3 %; Eosinophils # (auto) 0.18 K/uL (0.00-0.50); Eosinophils % (auto) 2.8 %; Hematocrit (blood only) 38.4 % (42.0-52.0); Hemoglobin 13.4 g/dl (14.0-18.0); Immature Granulocytes # (auto) 0.02 K/uL (0.01-0.20); Immature Granulocytes % (auto) 0.3 %; Lymphocytes # (auto) 1.37 K/uL (1.20-3.40); Lymphocytes % (auto) 21.6 %; Mean Corpuscular Hemoglobin 33.2 pg (25.0-34.0); Mean Corpuscular Hgb Conc 34.9 g/dL (32.0-36.0); Mean Platelet Volume 9.3 fL (9.4-12.4); Monocytes # (auto) 1.26 K/uL (0.11-0.59); Monocytes % (auto) 19.9 %; Neutrophils # (auto) 3.42 K/uL (1.40-6.50); Neutrophils % (auto) 54.1 %; Platelet Count 203 K/uL (130-400); RDW Coefficient of Variation 12.1 % (11.5-14.5); RDW Standard Deviation 42.5 fL (36.4-46.3); Red Blood Count 4.04 M/uL (4.70-6.10); White Blood Count 6.33 K/ul (4.8-10.8)
[2024-11-03 04:35] LABS: BUN Creatinine Ratio 13.9 (10-20); Calcium 8.8 mg/dl (8.6-10.3); Creatinine Clr Calc Pharmacy 88.6 ml/min; Potassium 4.1 mmol/L (3.5-5.1)
[2024-11-03 05:32] LABS: ANTI-Xa, UFH(UnfractionatedHep 0.75 IU/ml (0.3-0.7)
[2024-11-03] MEDS: amLODIPine BESYLATE 5 MG TAB PO SCH (07:48)
[2024-11-03] MEDS: ASPIRIN 81 MG ECTAB PO SCH (07:49)
[2024-11-03] MEDS: lisinopril 40 MG TAB PO SCH (07:49)
[2024-11-03] MEDS: hydroCHLOROthiazide 25 MG TAB PO SCH (07:49)
[2024-11-03] MEDS: ROSUVASTATIN CALCIUM 10 MG TAB PO SCH (07:50)
[2024-11-03] MEDS: FOLIC ACID 1 MG TAB PO SCH (07:50)
[2024-11-03] MEDS: THIAMINE HCL 100 MG TAB PO SCH (07:50)
[2024-11-03] MEDS: CLOPIDOGREL BISULFATE 75 MG TAB PO SCH (07:51)
[2024-11-03] MEDS ORDERED: ENOXAPARIN INJ 40 MG/0.4 ML SYR SQ SCH (09:00)
[2024-11-03] MEDS: cefTRIAXone SODIUM 2,000 MG/50 ML BAG IV SCH (11:41)
[2024-11-03 12:00] LABS: Creatinine Clr Calc Pharmacy 90.9 ml/min; Potassium 3.7 mmol/L (3.5-5.1)
[2024-11-03] MEDS ORDERED: cefTRIAXone SODIUM 1,000 MG/50 ML BAG IV SCH (12:00)
[2024-11-03 12:35] LABS: ANTI-Xa, UFH(UnfractionatedHep 0.72 IU/ml (0.3-0.7)
--- NOTE | 2024-11-03 14:56 | Consultation ---
Date of Consultation November 03, 2024 Assessment & Plan (1) Lower extremity arterial insufficiency, severe, left: Patient for a left common femoral artery endarterectomy with patch and possible intervention of the left popliteal artery. I have discussed the risks options and benefits of the procedure with the patient. The patient understands the risks options and benefits and agrees to the procedure. Thank you very much for letting us participate in the care of this patient. History of Present Illness Reason for Consultation: Ischemic left lower extremity Attending Physician: Cyril Fiore MD History of Present Illness This 69-year-old male who has a non healing ulcer of his left heel and second toe as well as significant claudication. Arteriography showed a severe preocclusive lesion of his left common femoral artery at the level of the sfa takeoff. It also showed a possible popliteal artery occlusion. He denies rest pain at this time. He does have coronary heart disease with an AL in the past. He also continues to smoke daily. He also has known left subclavian artery stenosis. Allergies Allergy/AdvReac Type Severity Reaction Status Date / Time amoxicillin Allergy Intermediate Rash Verified 11/02/24 12:14 Doxycycline Allergy Mild rash Uncoded 11/02/24 12:14 Home Medications Medication Instructions Recorded Confirmed Type aspirin 81 mg tablet,delayed 81 mg PO QAM #30 tabs 03/20/20 10/25/24 Rx release timolol maleate 0.5 % eye drops 1 drp OPB DAILY 12/10/21 10/25/24 History nitroglycerin 0.4 mg sublingual 0.4 mg sublingual PRN PRN chest 12/25/2210/25 Rx tablet (Nitrostat) pain #20 tabs lisinopril 40 mg tablet 40 mg PO DAILY #90 tabs 11/18/23 10/25/24 Rx meclizine 12.5 mg tablet 12.5 mg PO TID PRN dizziness #30 07/20/24 10/25/24 Rx tabs amlodipine 10 mg tablet 10 mg PO DAILY #90 tabs 07/25/24 10/25/24 Rx carvedilol 6.25 mg tablet 6.25 mg PO BID #180 tabs 08/15/24 10/25/24 Rx hydrochlorothiazide 12.5 mg tablet 12.5 mg PO DAILY #90 tabs 09/15/24 10/25/24 Rx triamcinolone acetonide 0.5 % 1 applic topical BID PRN Rash #15 09/22/24 10/25/24 Rx topical cream grams rosuvastatin 10 mg tablet 10 mg PO DAILY #90 tabs 10/24/24 10/25/24 Rx doxycycline hyclate 100 mg capsule 100 mg PO BID #14 caps 10/25/24 10/25/24 Rx sulfamethoxazole 800 1 tab PO BID #14 tabs 10/26/24 Rx mg-trimethoprim 160 mg tablet (Bactrim DS) clopidogrel 75 mg tablet 75 mg PO DAILY #30 tabs 11/01/24 Rx Patient History Medical History Colon cancer screening FIT test 2019,05/2022. Colonoscopy 04/21/23 - Tubular adenoma Complete heart block STEMI (ST elevation myocardial infarction) Hepatitis C Completed Treatment Psoriasis Cataract, bilateral Surgical History H/O colonoscopy 04/2023 Repeat 1 yr[place] [place] History of cataract surgery History of tooth extraction wisdom teeth History of tonsillectomy Family History Mother Thyroid cancer Father No problems noted. Denies family history of Ovarian cancer Prostate cancer Breast cancer Lung cancer Colorectal cancer Social History Smoking Status: Current every day smoker Tobacco Type: Cigarettes Age Started Using Tobacco: 14; packs per day: 0.5; Cigarettes Per Day: 6; Second Hand Exposure: No; Do You Dip or Chew Tobacco: No; Hx Alcohol Use: Yes Alcohol type: beer Alcohol Intake Frequency: 4 or More x per/Week Hx Substance Use: No Preferred Language: Bulgarian Communication Ability: Effective Visual Impairment: Diminished Hearing Ability: Normal Back Order Clerk Required: No Beliefs That Will Affect Care: None marital status: Single Current Living Situation: Significant Other Current Living Situation Comment: lives with girlfriend current occupational status: retired How many Children do You have: 0 Feels Safe at Home: Yes Childhood Exposure to Second-Hand Smoke: No Diet: low salt and regular caffeine: Yes Dental Care, Regularly: Yes Physical Activity Frequency: Daily Physical Activity Frequency Comment: walking and yoga Seatbelt Use: always Sunscreen Use: Yes Do you think of yourself as: straight/heterosexual Assistive Devices: None Review of Systems Review of Systems: All systems reviewed & are unremarkable except as noted in HPI & below Physical Exam Constitutional: WD/WN, vitals as above Respiratory: normal respiratory effort, lungs clear to auscultation Cardiovascular: RRR, no murmur, no edema Vessels: + femoral pulses abnormal, + posterior tibial pulses abnormal, + dorsalis pedis pulses abnormal and + popliteal pulses abnormal Extremities: + abnormal capillary refill Gastrointestinal (Abdomen): normal bowel sounds, soft, nontender, no hepatosplenomegaly Neurologic: CN's II-XI intact bilaterally, normal sensation to monofilament and moves all extremities Psychiatric: A+Ox3, euthymic affect Results & Data Vital Signs (Past 12 Hours) Vital Signs Temp Pulse Pulse Resp BP Pulse Ox O2 Del Method 11/03/24 11:50 36.4 C L 72 120/65 96 Room Air 11/03/24 10:36 72 11/03/24 09:00 Room Air 11/03/24 07:31 36.6 C 63 18 126/71 98 Room Air 11/03/24 03:12 36.6 C 74 18 129/68 97 Room Air
[2024-11-03] MEDS ORDERED: SODIUM CHLORIDE 0.9% 50 ML IV PRN (15:09)
[2024-11-03] MEDS ORDERED: SODIUM CHLORIDE 0.9% 100 ML IV PRN (15:09)
--- NOTE | 2024-11-03 18:54 | Hospitalist Progress Note ---
Date of Service November 03, 2024 Assessment & Plan (1) Lower extremity arterial insufficiency, severe, left: Plan: 69-year-old male with a history of severe PAD, CAD with PCI, and ongoing tobacco use who presents with evidence of chronic nonhealing left arterial insufficiency ulcer with ? superimposed cellulitis. s/p arteriogram of b/l Legs 11/[address] Waqar Etienne results - Right lower extremity-- -Common iliac - calcified, 60% ostial stenosis -External iliac -- heavily calcified 100% occlusion just after take-off internal iliac. -Internal iliac -- 95% ostial, provides collaterals to distal CORRIDOR REDEVELOPMENT MANAGER. -CORRIDOR REDEVELOPMENT MANAGER--occluded, reconstitutes distally Left lower extremity-- -Common iliac -- 50% mid stenosis with calcified nodule (no gradient across stenosis) -External iliac -- 60-70% proximal stenosis -Internal iliac -- 50% ostial stenosis. -CORRIDOR REDEVELOPMENT MANAGER--99% acute appearing stenosis with sluggish distal flow. -SFA - Sluggish flow, calcified with 50% mid, distal disease -Popliteal -- poorly visualized but appears heavily calcified and potentially occluded in mid-distal segment. Dr Etienne advised intervention on the nearly occluded left CORRIDOR REDEVELOPMENT MANAGER He has asked Dr Maurer from vascular surgery to perform endarterectomy Mr Robert is on the OR schedule tomorrow, 11/04, with Dr Maurer for such until then - * heparin drip * asa * plavix * pain control * antibiotics for possible L foot cellulitis * statin * NPO after MN tonight (2) Arterial leg ulcer: Plan: left foot/heel non-healing should improve with intervention of #1 above (3) Cellulitis: Plan: left foot - mild cont rocephin for now (4) Hypertension: Plan: cont amlodipine cont coreg cont HCTZ cont lisinopril - but plan to HOLD tomorrow am given risk of ITZEL rory- operatively (5) PAD (peripheral artery disease): Plan: severe, see #1 above (6) Cirrhosis: Plan: h/o HepC s/p sofosbuvir/velpatasvir 12-week treatment 2020 unfortunately he has continued alcohol use of approximately 2 beers daily History of small esophageal varices - EGD 10/2022. 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 No significant valvular abnormalities. Continue DAPT, statin, BB, VICKI, rosuvastatin (hold VICKI in am tomorrow, however) (10) Hyponatremia: Plan: 126 at time of admission low urine osm low-normal urine Na suspect potomania and/or solute depletion already improved overnight to 131 repeat BMP am Plan hyperglycemia - glucose 155 check a1c in am tomorrow DVT proph - heparin drip appreciate cardiology & vascular surgery consultations Admission and Anticipated Discharge Date Admission Date: November 02, 2024 Subjective tele overnight wnl patient c/o left foot pain but otherwise is feeling ok denies dyspnea denies chest pain denies abd pain tolerating his meals we discussed plan of care including OR for the left femoral artery occlusion with Dr Maurer on 11/04 Review of Systems Review of Systems: gen - no fevers or chills pulm - no dyspnea GI - no n/v vascular - chronic claudication LLE Physical Exam Physical Exam: gen - laying in bed, NAD, pleasant, nontoxic mouth - MMM neck - no JVD heart - RRR, s1 s2, no murmur lungs - CTA b/l abd - soft NT ND BS+ vascular - left popliteal pulse 1+; DP and pos tib pulses L foot <1+; cap refill 4 sec L foot; foot cool to touch; no edema either leg skin - left heel - linear ulceration, clean, no drainage, no surrounding cellulitis, no odor Results & Data Results & Data Vital Signs (Past 12 Hours) Vital Signs Temp Pulse Pulse Resp BP Pulse Ox O2 Del Method 11/03/24 15:30 36.7 C 70 16 147/80 H 98 Room Air 11/03/24 11:50 36.4 C L 72 120/65 96 Room Air 11/03/24 10:36 72 11/03/24 09:00 Room Air 11/03/24 07:31 36.6 C 63 18 126/71 98 Room Air Laboratory Results Laboratory Results - last 24 hr 11/02/24 11/02/24 11/03/24 21:18 Unknown 04:01 WBC 6.33 RBC 4.04 L Hgb 13.4 L Hct 38.4 L MCV 95.0 MCH 33.2 MCHC 34.9 RDW Std Deviation 42.5 RDW Coeff of Cj 12.1 Plt Count 203 MPV 9.3 L Immature Gran % (Auto) 0.3 Neut % (Auto) 54.1 Lymph % (Auto) 21.6 [place] % (Auto) 19.9 Eos % (Auto) 2.8 Baso % (Auto) 1.3 Neut # (Auto) 3.42 Lymph # (Auto) 1.37 [place] # (Auto) 1.26 H Eos # (Auto) 0.18 Baso # (Auto) 0.08 Immature Gran # (Auto) 0.02 Heparin Anti-Xa, Unfract 0.76 H* 0.75 H* Sodium 127 L 130 L Potassium 4.1 4.1 Chloride 98 101 Carbon Dioxide 23 23 Anion Gap 6 6 BUN 13 11 Creatinine 0.89 0.79 Est Cr Clr Drug Dosing 78.6 88.6 eGFR 91.62 94.98 BUN/Creatinine Ratio 14.6 13.9 Glucose 102 H 103 H Calcium 8.8 8.8 Urine Osmolality 185 L Ur Random Sodium 20 Blood Type Antibody Screen Crossmatch 11/03/24 11/03/24 11:20 15:53 WBC RBC Hgb Hct MCV MCH MCHC RDW Std Deviation RDW Coeff of Cj Plt Count MPV Immature Gran % (Auto) Neut % (Auto) Lymph % (Auto) [place] % (Auto) Eos % (Auto) Baso % (Auto) Neut # (Auto) Lymph # (Auto) [place] # (Auto) Eos # (Auto) Baso # (Auto) Immature Gran # (Auto) Heparin Anti-Xa, Unfract 0.72 H* Sodium 131 L Potassium 3.7 Chloride 99 Carbon Dioxide 26 Anion Gap 6 BUN 10 Creatinine 0.77 Est Cr Clr Drug Dosing 90.9 eGFR 95.72 BUN/Creatinine Ratio 13.0 Glucose 155 H Calcium 9.0 Urine Osmolality Ur Random Sodium Blood Type O Positive Antibody Screen NEGATIVE Crossmatch See Detail Diagnostic Findings Microbiology 11/02/24 09:23 Blood Aerobic Blood Culture - Preliminary No growth in Aerobic bottle after 24 hours. 11/02/24 09:23 Blood Anaerobic Blood Culture - Preliminary No growth in Anaerobic bottle after 24 hours. 11/02/24 09:17 Blood Aerobic Blood Culture - Preliminary No growth in Aerobic bottle after 24 hours. 11/02/24 09:17 Blood Anaerobic Blood Culture - Preliminary No growth in Anaerobic bottle after 24 hours. PG Care Time/CCT Total # of Minutes Spent Total Time Spent with Patient: Total time spent is greater than 50% in coordination of care (as documented) at patient's floor/unit and/or counseling patient: Coding Level of Care Code 60633 SUB INP/OBS CARE 3/50MIN Diagnoses Lower extremity arterial insufficiency, severe, left I73.9 Arterial leg ulcer L97.909 Cellulitis L03.90 Hypertension I10 PAD (peripheral artery disease) I73.9 Cirrhosis K74.60 Alcohol use disorder F10.90 Current smoker F17.200 Coronary artery disease I25.10 Associated angina: without angina Coronary Disease-Associated Artery/Lesion type: unspecified vessel or lesion type [place] vs. transplanted heart: [place] heart Hyponatremia E87.1 (9) Coronary artery disease Associated angina: without angina Coronary Disease-Associated Artery/Lesion type: unspecified vessel or lesion type [place] vs. transplanted heart: [place] heart Qualified Code(s): I25.10 - Atherosclerotic heart disease of [place] coronary artery without angina pectoris
[2024-11-03 20:25] LABS: ANTI-Xa, UFH(UnfractionatedHep 0.54 IU/ml (0.3-0.7)
[2024-11-04] MEDS: ACETAMINOPHEN 325 MG TAB PO PRN (01:00)
[2024-11-04 07:17] LABS: Basophils # (auto) 0.08 K/uL (0.00-0.20); Basophils % (auto) 1.2 %; Eosinophils # (auto) 0.17 K/uL (0.00-0.50); Eosinophils % (auto) 2.6 %; Hematocrit (blood only) 39.7 % (42.0-52.0); Hemoglobin 13.8 g/dl (14.0-18.0); Immature Granulocytes # (auto) 0.01 K/uL (0.01-0.20); Immature Granulocytes % (auto) 0.2 %; Lymphocytes # (auto) 2.01 K/uL (1.20-3.40); Lymphocytes % (auto) 30.6 %; Mean Corpuscular Hemoglobin 32.9 pg (25.0-34.0); Mean Corpuscular Hgb Conc 34.8 g/dL (32.0-36.0); Mean Corpuscular Volume 94.7 fL (80.0-100.0); Mean Platelet Volume 9.8 fL (9.4-12.4); Monocytes # (auto) 1.08 K/uL (0.11-0.59); Monocytes % (auto) 16.5 %; Neutrophils # (auto) 3.21 K/uL (1.40-6.50); Neutrophils % (auto) 48.9 %; Platelet Count 233 K/uL (130-400); RDW Coefficient of Variation 12.1 % (11.5-14.5); RDW Standard Deviation 42.2 fL (36.4-46.3); Red Blood Count 4.19 M/uL (4.70-6.10); White Blood Count 6.56 K/ul (4.8-10.8)
[2024-11-04 07:21] LABS: ANTI-Xa, UFH(UnfractionatedHep 0.56 IU/ml (0.3-0.7)
[2024-11-04 07:50] LABS: BUN Creatinine Ratio 15.1 (10-20); Blood Urea Nitrogen 11 mg/dl (6-23); Calcium 9.2 mg/dl (8.6-10.3); Carbon Dioxide 26 mmol/L (21-32); Chloride 97 mmol/L (98-107); Creatinine Clr Calc Pharmacy 95.8 ml/min; Glucose 92 mg/dl (70-99(Fasting))
[2024-11-04 09:08] LABS: Magnesium 2.2 mg/dl (1.7-2.4); Potassium 4.1 mmol/L (3.5-5.1)
[2024-11-04] MEDS ORDERED: Nursing to Pharmacy Communication SCH (09:30)
[2024-11-04] MEDS ORDERED: MIDAZOLAM HCL 1 MG/ML 2ML VIAL ONE (10:24)
[2024-11-04] MEDS ORDERED: fentaNYL citrate PF 100 MCG/2 ML VIAL ONE ×2 (10:37→14:48)
[2024-11-04] MEDS ORDERED: ROCURONIUM BROMIDE 10 MG/ML 5 ML VIAL IV ONE ×4 (10:38→16:13)
[2024-11-04] MEDS ORDERED: LIDOCAINE 2% 2 ML VIAL/AMP(20MG/ML) INFIL ONE ×2 (10:39)
[2024-11-04] MEDS ORDERED: PROPOFOL IV EMULSION 10 MG/ML 20 ML VIAL IV ONE (10:42)
[2024-11-04] MEDS ORDERED: HEPARIN SOD (PORCINE) 1000 UNIT/ML ONE ×2 (10:44→15:55)
[2024-11-04] MEDS ORDERED: ePHEDrine sulfate 50 MG/ML AMP IV PRN (11:22)
[2024-11-04] MEDS ORDERED: PROMETHAZINE HCL 6.25 MG in SODIUM CHLORIDE 0.9% 50 ML IV PRN (11:22)
[2024-11-04] MEDS ORDERED: ATROPINE SULFATE 0.1 MG/ML 10ML SYR IV PRN (11:22)
[2024-11-04] MEDS ORDERED: ONDANSETRON INJ 2 MG/ML 2 ML VIAL IV PRN ×2 (11:22→19:06)
[2024-11-04] MEDS ORDERED: HYDROmorphone INJ 1 MG/ML SYRINGE IV PRN (11:22)
[2024-11-04] MEDS ORDERED: fentaNYL citrate PF 100 MCG/2 ML VIAL IV PRN (11:22)
--- NOTE | 2024-11-04 11:25 | Anesthesiology Consultation ---
Date of Service November 04, 2024 Assessment & Plan (1) Encounter for pre-operative examination: Chart Review Chart Review: Acceptable Risk for Surgery and Patient NOT seen in Pre Admission Testing Assessment and Plan Assessment and Plan (1) PAD (peripheral artery disease): Plan: --Severe, calcified RT distal EIA stenosis, DEE DEE 0.36 08/2023 Left moderate SFA, severe popliteal DEE DEE 0.56 08/2023 --Left subclavian artery stenosis, asymptomatic. 2. CAD --Inferior OR status post RCA PCI 02/2020 --RCA in-stent restenosis post PCI 05/18/20 --mild nonculprit disease 3. Hypertension--at goal on CCB, BB, thiazide, VICKI 4. Dyslipidemia--moderate intensity statin, LDL at goal 5. Ongoing tobacco use 6. Hepatitis C stable from a cardiac standpoint. Stable from a cardiovascular standpoint. Remains active with no recurrent anginal symptoms. Still with stable mild to moderate right greater than left claudication symptoms. 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 No signs or symptoms of CLI. Consults Requested none History Surgery Operation Date: 11/02/24 12:00 Proposed Procedures p Angiogram Extremity Unilateral - Jose Etienne MD Operation Date: 11/04/24 09:50 Proposed Procedures p Left Common Femoral Artery Endarterectomy, Arteriography, Left Lower Extremity Intervention - Tom Maurer MD Height/Weight Height: 5 ft 10 in Weight: 82 kg Allergies Allergy/AdvReac Type Severity Reaction Status Date / Time amoxicillin Allergy Intermediate Rash Verified 11/02/24 12:14 Doxycycline Allergy Mild rash Uncoded 11/02/24 12:14 Medications Home Medications Medication Instructions Recorded Confirmed Last Taken aspirin 81 mg tablet,delayed 81 mg PO QAM #30 tabs 03/20/20 10/25/24 12/17/22 release timolol maleate 0.5 % eye drops 1 drp OPB DAILY 12/10/21 10/25/24 12/17/22 nitroglycerin 0.4 mg sublingual 0.4 mg sublingual PRN PRN chest 12/25/22 10/25/24 Unknown tablet (Nitrostat) pain #20 tabs lisinopril 40 mg tablet 40 mg PO DAILY #90 tabs 11/18/23 10/25/24 Unknown meclizine 12.5 mg tablet 12.5 mg PO TID PRN dizziness #30 07/20/24 10/25/24 Unknown tabs amlodipine 10 mg tablet 10 mg PO DAILY #90 tabs 07/25/24 10/25/24 Unknown carvedilol 6.25 mg tablet 6.25 mg PO BID #180 tabs 08/15/24 10/25/24 Unknown hydrochlorothiazide 12.5 mg tablet 12.5 mg PO DAILY #90 tabs 09/15/24 10/25/24 Unknown triamcinolone acetonide 0.5 % 1 applic topical BID PRN Rash #15 09/22/24 10/25/24 Unknown topical cream grams rosuvastatin 10 mg tablet 10 mg PO DAILY #90 tabs 10/24/24 10/25/24 Unknown doxycycline hyclate 100 mg capsule 100 mg PO BID #14 caps 10/25/24 10/25/24 Unknown sulfamethoxazole 800 1 tab PO BID #14 tabs 10/26/24 Unknown mg-trimethoprim 160 mg tablet (Bactrim DS) clopidogrel 75 mg tablet 75 mg PO DAILY #30 tabs 11/01/24 Unknown Active Medications Generic Name Dose Route Start Last Admin Trade Name Freq PRN Reason Stop Dose Admin Acetaminophen 650 mg 11/02/24 14:38 11/04/24 01:00 Acetaminophen 325 Mg Tab PO 12/02/24 14:37 650 mg Q4H PRN Administration pain/fever Amlodipine Besylate 10 mg 11/03/24 09:00 11/04/24 08:52 Amlodipine Besylate 5 Mg Tab PO 12/03/24 08:59 10 mg DAILY ELIZABET Administration Aspirin 81 mg 11/03/24 09:00 11/04/24 08:53 Aspirin 81 Mg Ectab PO 12/03/24 08:59 81 mg QAM ELIZABET Administration Carvedilol 6.25 mg 11/02/24 17:00 11/04/24 08:54 Carvedilol 6.25 Mg Tab PO 12/02/24 16:59 6.25 mg BIDM ELIZABET Administration Clopidogrel Bisulfate 75 mg 11/03/24 09:00 11/04/24 08:53 Clopidogrel Bisulfate 75 Mg Tab PO 12/03/24 08:59 75 mg DAILY ELIZABET Administration Folic Acid 1 mg 11/03/24 09:00 11/04/24 08:53 Folic Acid 1 Mg Tab PO 12/03/24 08:59 1 mg QAM ELIZABET Administration Hydrochlorothiazide 12.5 mg 11/03/24 09:00 11/04/24 08:53 Hydrochlorothiazide 25 Mg Tab PO 12/03/24 08:59 12.5 mg DAILY ELIZABET Administration Ceftriaxone Sodium 2,000 mg in 50 mls @ 100 mls/hr 11/03/24 12:00 11/03/24 12:13 Rocephin IV 11/10/24 11:59 Infused Q24H ELIZABET Infusion Heparin Sodium/Dextrose 25,000 units in 500 mls @ 0 mls/hr 11/02/24 17:30 11/04/24 09:09 Heparin 14880 Unit/500 Ml D5w IV 12/02/24 17:29 0 units/hr .Q0M ELIZABET 0 mls/hr Titration Protocol 0 UNITS/HR Lisinopril 40 mg 11/03/24 09:00 11/03/24 07:49 Lisinopril 40 Mg Tab PO 12/03/24 08:59 40 mg DAILY ELIZABET Administration Morphine Sulfate 2 mg 11/02/24 11:52 11/02/24 14:42 Morphine Sulfate 2 Mg/Ml Carp IV 11/16/24 11:51 2 mg Q4H PRN Administration Breakthrough/severe pain Rosuvastatin Calcium 10 mg 11/03/24 09:00 11/04/24 08:52 Rosuvastatin Calcium 10 Mg Tab PO 12/03/24 08:59 10 mg DAILY ELIZABET Administration Thiamine HCl 100 mg 11/03/24 09:00 11/04/24 08:52 Thiamine Hcl 100 Mg Tab PO 12/03/24 08:59 100 mg QAM ELIZABET Administration NPO Date Last Intake of Fluids: 11/03/24 Time Last Intake of Fluids: 22:30 Last Intake of Fluids Comment: 0855 Date Last Intake of Solids: 11/03/24 Time Last Intake of Solids: 17:30 Past Medical History Medical History (Updated 11/04/24 @ 11:30 by Torsten Busby MD) PAD (peripheral artery disease) Coronary artery disease Cirrhosis Current smoker Colon cancer screening FIT test 2019,05/2022. Colonoscopy 04/21/23 - Tubular adenoma STEMI (ST elevation myocardial infarction) Hepatitis C Completed Treatment Psoriasis Cataract, bilateral Past Family History Family History Mother Thyroid cancer Father No problems noted. Denies family history of Ovarian cancer Prostate cancer Breast cancer Lung cancer Colorectal cancer Past Surgical History Surgical History H/O colonoscopy 04/2023 Repeat 1 yr,[facility] [place] History of cataract surgery History of tooth extraction wisdom teeth History of tonsillectomy Social History Smoking Status: Current every day smoker tobacco type: cigarettes Smoking cigarettes per day: 6 Do You Dip or Chew Tobacco: No Hx Alcohol Use: Yes Alcohol type: beer alcohol intake frequency: 0-2 drinks per day Alcohol Intake Frequency Comment: 11-01-2024 Hx Substance Use: No substance use type: does not use Last Used Substance: Days (ago) Last Used Substance Other:: once within last month Physical Exam Vital Signs Last Vital Signs Temp 36.8 C 11/04/24 10:12 Pulse 77 11/04/24 10:12 Resp 20 11/04/24 10:12 BP 147/87 H 11/04/24 10:12 Pulse Ox 99 11/04/24 10:12 O2 Del Method Room Air 11/04/24 10:12 Testing Laboratory Results 11/04/24 05:56 11/04/24 08:17 PT 11.0 Seconds (9.0-12.0) 11/02/24 09:17 INR 1.0 (0.9-1.1) 11/02/24 09:17 Blood Type O Positive 11/03/24 15:53 Antibody Screen NEGATIVE 11/03/24 15:53 11/02/24 09:23 Aerobic Blood Culture - Preliminary Blood No growth in Aerobic bottle after 48 hours. Anaerobic Blood Culture - Preliminary No growth in Anaerobic bottle after 48 hours. 11/02/24 09:17 Aerobic Blood Culture - Preliminary Blood No growth in Aerobic bottle after 48 hours. Anaerobic Blood Culture - Preliminary No growth in Anaerobic bottle after 48 hours. 11/04/24 11/04/24 10:19 07:28 POC Glucose 115 H 108 H Electrocardiogram Date: 12/11/22 DICTATED BY: Fernando Ferreira MD Test Reason : Blood Pressure : / mmHG Vent. Rate : 064 BPM Atrial Rate : 064 BPM P-R Int : 218 ms QRS Dur : 100 ms QT Int : 442 ms P-R-T Axes : 051 013 036 degrees QTc Int : 455 ms Sinus rhythm with 1st degree A-V block Low voltage QRS Borderline ECG When compared with ECG of 17-DEC-2022 21:09, No significant change was found Confirmed by Fernando Ferreira ([id number]) on 12/19/2022 5:40:29 AM Echocardiogram Date: 12/18/22 LV Function: normal EF 65%. Normal LV size and function.
[2024-11-04] MEDS ORDERED: PHENYLEPHRINE HCL 10 MG/ML VIAL ONE (11:27)
[2024-11-04 12:00] LABS: Estimated Average Glucose 105 mg/dl; Hemoglobin A1C 5.3 % (4.5-5.6)
--- NOTE | 2024-11-04 13:44 | History & Physical Bridge Note ---
Date of Service November 04, 2024 History & Physical Bridge Note I have examined the patient, reviewed the History & Physical and in the interval since the performance of the History & Physical I have noted the following changes of clinical significance: no changes noted
[2024-11-04] MEDS: LACTATED RINGER'S 1,000 ML IV SCH (13:50)
[2024-11-04] MEDS ORDERED: ALBUTEROL HFA 8 GM INHALER INH ONE (14:18)
[2024-11-04] MEDS ORDERED: DEXAMETHASONE SOD INJ 4 MG/ML VIAL ONE (14:35)
[2024-11-04] MEDS ORDERED: KETAMINE HCL 10MG/ML SYR ONE (14:48)
[2024-11-04] MEDS ORDERED: PROTAMINE SULFATE 10 MG/ML 5 ML VIAL IV ONE ×3 (16:32→17:00)
[2024-11-04] MEDS: ceFAZolin 330 MG/ML 1 GM VIAL ONE (16:34)
[2024-11-04] MEDS: LIDOCAINE 1% LOCAL 20 ML VIAL ONE (16:34)
[2024-11-04] MEDS: BUPIVACAINE/EPINEPHRINE 0.5% MPF 1:200,000 30 ML VIAL ONE (16:34)
[2024-11-04] MEDS ORDERED: SUGAMMADEX SODIUM 200 MG/2 ML VIAL IV ONE ×2 (16:38→17:00)
[2024-11-04] MEDS: HEPARIN SOD (PORCINE) 1000 UNIT/ML ONE (16:39)
[2024-11-04] MEDS: VISIPAQUE IV ONE (16:53)
[2024-11-04] MEDS: GELATIN SPONGE SZ 100 ONE (16:54)
[2024-11-04] MEDS: THROMBIN FOR SOLN 20000 UNIT KIT ONE (16:56)
--- NOTE | 2024-11-04 17:03 | Post Operative Brief Note ---
Immediate Post Op Note Date of Surgery November 04, 2024 Pre & Post Diagnosis Operation Date: 11/04/24 09:50 Pre-Op Diagnosis: Lower extremity arterial insufficiency, severe, left Post-Op Diagnosis: Lower extremity arterial insufficiency, severe, left I identified the patient and participated in the time-out.: Yes Procedure Operation Date: 11/04/24 09:50 Actual Procedures p Left Common and Superficial Femoral Artery Endarterectomy, Arteriography(Left) - Tom Maurer MD Surgeon Tom Maurer MD Recycle Driver none Estimated Blood Loss 600 Findings Consistent with Post-Op Diagnosis Drains [place] Catheter Anesthesia Type General Complications none Disposition Accompanied Patient To Recovery: No Disposition: Recovery Room
--- NOTE | 2024-11-04 17:03 | Operative Report ---
Post Operative Report Pre & Post Diagnosis Operation Date: 11/04/24 09:50 Pre-Op Diagnosis: Lower extremity arterial insufficiency, severe, left Post-Op Diagnosis: Lower extremity arterial insufficiency, severe, left I identified the patient and participated in the time-out.: Yes Procedure Operation Date: 11/04/24 09:50 Actual Procedures p Left Common and Superficial Femoral Artery Endarterectomy, Arteriography(Left) - Tom Maurer MD Surgeon Tom Maurer MD [employer] none Estimated Blood Loss 600 Findings Consistent with Post-Op Diagnosis Specimens plaque Anesthesia Type General Complications none Disposition Accompanied Patient To Recovery: No Disposition: Recovery Room Indications This is a 69-year-old male who is complaining of mild rest pain of the left lower extremity. He was found to have a left common femoral artery and proximal superficial femoral artery occlusion. Endarterectomy was recommended. I have discussed the risks options and benefits of the procedure with the patient. The patient understands the risks options and benefits and agrees to the procedure. Description of Procedure The patient was taken the op room placed spine position. After general anesthesia was accomplished the left lower extremities prepped draped in a sterile manner. Timeout was performed and patient was identified. Longitude incision was then made in the left groin. This carried down to the common femoral arteries identified the inguinal ligament. It was carried down to the bifurcation of the common femoral. There was still heavy calcifications felt that the origin of the superficial femoral artery. Dissection was carried downward proximally 10 cm on the superficial femoral artery to where a soft spot was identified. Patient was heparinized at that time. After adequate position was accomplished the common superficial femoral and profundofemoral arteries were clamped. Longitudinal arteriotomy was started on the common femoral artery it was extended proximally to beyond the plaque which was just below the inguinal ligament. It was extended distally proximally 10 cm on the superficial femoral artery to a point which was beyond the heavily calcified plaque. After this was done and endarterectomy was started in appropriate plane on the common femoral artery. It was extended upward. Nice breakoff point was accomplished I on the common femoral artery at the inguinal ligament. We then carried the dissection down more. We had a nice plug out of the profundofemoral artery with good backbleeding. We then extended the endarterectomy down through the superficial femoral artery to the end of the arteriotomy. At that point we had a nice breakoff point. Tacking sutures were used for the plaque on the superficial femoral artery at the distal end of the arteriotomy. The flow surface irrigated. All loose debris and clamps were removed. After we were satisfied with the appearance of the flow surface, a bovine patch was then placed on the superficial femoral and proximal common femoral arteries. Was started on the common femoral artery with the usual vascular fashion. It was sewn into place. We had to use a second patch for the distal end of the arteriotomy which encompassed most of the superficial femoral artery. Both patches are anastomosed together anteriorly. Prior to completing the closure of the arteriotomy backbleeding and forward bleeding was allowed occur. The final few sutures were place and securely tied. Clamps were then removed. Excellent flow was noted in the profundofemoral artery and superficial femoral artery. We then punctured the common femoral artery on the lateral side and inserted a 5 Irish sheath. Arteriography showed occlusion of the popliteal artery starting just above the knee extending downward to the origin of the posterior tibial and peroneal artery. Anterior tibial artery is occluded. We tried to get a wire through the occlusion. This was unsuccessful. There was good Doppler signals heard at the foot at this point. There is good capillary refill seen in the foot. We decided not to do anything further as far as bypass goes being that he has had a significant increase in the inflow. After adequate hemostasis was noted the wounds were closed in usual fashion using running 2-0 Vicryl sutures for the femoral sheath and 3-0 Vicryl sutures for the subcutaneous layer. [place] were used for the skin. Sterile dressings were applied.The patient left the operation room in satisfactory condition and tolerated the procedure well. All needle and sponge counts were correct at the end of the procedure. I attest to the content of the Intraoperative Record and any orders documented therein. Any exceptions are noted below.
[2024-11-04] MEDS: SODIUM CHLORIDE 0.9% 500 ML IV ONE (17:10)
[2024-11-04 18:03] LABS: Basophils # (auto) 0.06 K/uL (0.00-0.20); Basophils % (auto) 0.5 %; Eosinophils # (auto) 0.06 K/uL (0.00-0.50); Eosinophils % (auto) 0.5 %; Hematocrit (blood only) 32.9 % (42.0-52.0); Hemoglobin 11.1 g/dl (14.0-18.0); Immature Granulocytes # (auto) 0.09 K/uL (0.01-0.20); Immature Granulocytes % (auto) 0.8 %; Lymphocytes # (auto) 0.76 K/uL (1.20-3.40); Lymphocytes % (auto) 6.7 %; Mean Corpuscular Hemoglobin 32.9 pg (25.0-34.0); Mean Corpuscular Hgb Conc 33.7 g/dL (32.0-36.0); Mean Corpuscular Volume 97.6 fL (80.0-100.0); Mean Platelet Volume 9.7 fL (9.4-12.4); Monocytes # (auto) 0.61 K/uL (0.11-0.59); Monocytes % (auto) 5.3 %; Neutrophils # (auto) 9.83 K/uL (1.40-6.50); Neutrophils % (auto) 86.2 %; Platelet Count 207 K/uL (130-400); RDW Coefficient of Variation 12.1 % (11.5-14.5); RDW Standard Deviation 43.2 fL (36.4-46.3); Red Blood Count 3.37 M/uL (4.70-6.10); White Blood Count 11.41 K/ul (4.8-10.8)
--- NOTE | 2024-11-04 18:26 | Hospitalist Progress Note ---
Date of Service November 04, 2024 Assessment & Plan (1) Lower extremity arterial insufficiency, severe, left: Plan: 69-year-old male with a history of severe PAD, CAD with PCI, and ongoing tobacco use who presents with evidence of chronic nonhealing left arterial insufficiency ulcer with ? superimposed cellulitis. s/p arteriogram of b/l Legs 11/[address] Waqar Etienne results - Right lower extremity-- -Common iliac - calcified, 60% ostial stenosis -External iliac -- heavily calcified 100% occlusion just after take-off internal iliac. -Internal iliac -- 95% ostial, provides collaterals to distal [employer]. -[employer]ATOR--occluded, reconstitutes distally Left lower extremity-- -Common iliac -- 50% mid stenosis with calcified nodule (no gradient across stenosis) -External iliac -- 60-70% proximal stenosis -Internal iliac -- 50% ostial stenosis. -[employer] OPERATOR--99% acute appearing stenosis with sluggish distal flow. -SFA - Sluggish flow, calcified with 50% mid, distal disease -Popliteal -- poorly visualized but appears heavily calcified and potentially occluded in mid-distal segment. Dr Etienne advised intervention on the nearly occluded left [employer] Dr Maurer from [facility] vascular surgery was consulted and performed left [employer] and SFA endarterectomies today Appreciate Dr Maurer's assistance Heparin drip was stopped pre-op this am Post-op cont the following: * asa * plavix * pain control * antibiotics for possible L foot cellulitis * statin (2) Acute blood loss anemia: Plan: nearly 3 gram drop due to operative blood loss no need for PRBCs at this time simply repeat CBC am (3) Arterial leg ulcer: Plan: left foot/heel non-healing should improve with intervention of #1 above (4) Cellulitis: Plan: left foot - minimal cont rocephin today perhaps change to PO abx tomorrow (5) Hypertension: Plan: due to acute blood loss anemia HOLD amlodipine, lisinopril, and HCTZ cont coreg will resume above meds as needed (6) PAD (peripheral artery disease): Plan: severe, see #1 above (7) Cirrhosis: Plan: h/o HepC s/p sofosbuvir/velpatasvir 12-week treatment 2020 unfortunately he has continued alcohol use of approximately 2 beers daily History of small esophageal varices - EGD 10/2022. remains compensated on exam LFTs & INR all wnl (8) Alcohol use disorder: Plan: Endorses 5 days/week alcohol use --> 1-2 beers Cessation recommended given underlying cirrhosis still no withdrawal symptoms at this time cont to monitor order AWSS cont folate cont thiamine low threshold to add gabapentin taper, etc. (9) Current smoker: Plan: nicoderm patch if desired res counselor to quit (10) Coronary artery disease: Plan: History of PCI RCA 02/2020 then in-stent restenosis post PCI 04/2020 no ischemic symptoms at this time Echo 12/11: EF 65-70%. No significant valvular abnormalities. Continue DAPT, statin, BB hold VICKI (11) Hyponatremia: Plan: 126 at time of admission low urine osm low-normal urine Na suspect potomania and/or solute depletion solute depletion could be from dietary factors and/or HCTZ use stable at 131 this am repeat BMP am Plan hyperglycemia - glucose 155 Hba1c 5.3% thus, hyperglycemia 2nd to stress of #1 DVT proph - will d/w vascular tomorrow if SC heparin can be started at that time Admission and Anticipated Discharge Date Admission Date: November 02, 2024 Subjective saw patient post-op from his left [employer] and SFA endarterectomies he was transferred to the ICU post-op per Dr Maurer's op note he had 600cc of blood loss H/H rechecked post-op -- Hb 11.1 (was 13.8 this am) during my visit (he was now in room 103) he c/o mild pain in his left heel was hungry, asked if he could eat/drink no dyspnea no orthopnea no chest pain Review of Systems Review of Systems: gen - no fevers, but c/o feeling cold GI - no N/V Physical Exam Physical Exam: gen - laying in bed flat comfortably, NAD mouth - MMM heart - RRR, s1 s2, no murmur lungs - minimal end-exp wheeze b/l, good airation abd - soft NT ND BS+ vascular - left popliteal pulse now closer to 2+ today; DP and pos tib pulses L foot about 1+ at best; cap refill 3 sec L foot; foot mildly more warm today; no edema either leg Results & Data Results & Data Vital Signs (Past 12 Hours) Vital Signs Temp Pulse Pulse Pulse Resp BP BP 11/04/24 18:10 76 15 102/60 11/04/24 18:00 80 14 95/60 L 11/04/24 17:55 107/65 11/04/24 17:50 84 13 98/69 L 11/04/24 17:40 36.5 C 82 16 112/68 11/04/24 17:30 85 16 114/55 L 11/04/24 17:25 125/91 11/04/24 17:20 89 17 106/68 11/04/24 17:10 36.8 C 85 15 123/66 11/04/24 17:00 36.8 C 78 16 128/69 11/04/24 11:22 36.9 C 68 18 134/71 11/04/24 10:12 36.8 C 77 20 147/87 H 11/04/24 09:14 61 11/04/24 08:00 36.6 C 78 20 145/76 H Pulse Ox O2 Del Method O2 Flow Rate 11/04/24 18:10 99 Room Air 11/04/24 18:00 98 Room Air 11/04/24 17:55 11/04/24 17:50 99 Room Air 11/04/24 17:40 99 Room Air 11/04/24 17:30 100 Oxymask 6 11/04/24 17:25 11/04/24 17:20 100 Oxymask 11 11/04/24 17:10 100 Oxymask 11 11/04/24 17:00 97 Room Air 11/04/24 11:22 96 Room Air 11/04/24 10:12 99 Room Air 11/04/24 09:14 11/04/24 08:00 97 Room Air Laboratory Results Laboratory Results - last 24 hr 11/03/24 11/04/24 11/04/24 19:46 05:56 07:28 WBC 6.56 RBC 4.19 L Hgb 13.8 L Hct 39.7 L MCV 94.7 MCH 32.9 MCHC 34.8 RDW Std Deviation 42.2 RDW Coeff of Cj 12.1 Plt Count 233 MPV 9.8 Immature Gran % (Auto) 0.2 Neut % (Auto) 48.9 Lymph % (Auto) 30.6 [place] % (Auto) 16.5 Eos % (Auto) 2.6 Baso % (Auto) 1.2 Neut # (Auto) 3.21 Lymph # (Auto) 2.01 Haakon # (Auto) 1.08 H Eos # (Auto) 0.17 Baso # (Auto) 0.08 Immature Gran # (Auto) 0.01 Heparin Anti-Xa, Unfract 0.54 0.56 Sodium TNP Potassium TNP Chloride 97 L Carbon Dioxide 26 Anion Gap TNP BUN 11 Creatinine 0.73 Est Cr Clr Drug Dosing 95.8 eGFR 97.27 BUN/Creatinine Ratio 15.1 Glucose 92 POC Glucose 108 H Estimat Average Glucose 105 Hemoglobin A1c 5.3 Calcium 9.2 Magnesium TNP Blood Type Recheck O Positive 11/04/24 11/04/24 11/04/24 08:17 10:19 17:28 WBC 11.41 H RBC 3.37 L Hgb 11.1 L Hct 32.9 L MCV 97.6 MCH 32.9 MCHC 33.7 RDW Std Deviation 43.2 RDW Coeff of Cj 12.1 Plt Count 207 MPV 9.7 Immature Gran % (Auto) 0.8 Neut % (Auto) 86.2 Lymph % (Auto) 6.7 [place] % (Auto) 5.3 Eos % (Auto) 0.5 Baso % (Auto) 0.5 Neut # (Auto) 9.83 H Lymph # (Auto) 0.76 L Haakon # (Auto) 0.61 H Eos # (Auto) 0.06 Baso # (Auto) 0.06 Immature Gran # (Auto) 0.09 Heparin Anti-Xa, Unfract Sodium 131 L Potassium 4.1 Chloride Carbon Dioxide Anion Gap BUN Creatinine Est Cr Clr Drug Dosing eGFR BUN/Creatinine Ratio Glucose POC Glucose 115 H Estimat Average Glucose Hemoglobin A1c Calcium Magnesium 2.2 Blood Type Recheck PG Care Time/CCT Total # of Minutes Spent Total Time Spent with Patient: Total time spent is greater than 50% in coordination of care (as documented) at patient's floor/unit and/or counseling patient: Coding Level of Care Code 01118 SUB INP/OBS CARE 2/35MIN Diagnoses Lower extremity arterial insufficiency, severe, left I73.9 Acute blood loss anemia D62 Arterial leg ulcer L97.909 Cellulitis L03.90 Hypertension I10 PAD (peripheral artery disease) I73.9 Cirrhosis K74.60 Alcohol use disorder F10.90 Current smoker F17.200 Coronary artery disease I25.10 Associated angina: without angina Coronary Disease-Associated Artery/Lesion type: unspecified vessel or lesion type [place] vs. transplanted heart: [place] heart Hyponatremia E87.1 (10) Coronary artery disease Associated angina: without angina Coronary Disease-Associated Artery/Lesion type: unspecified vessel or lesion type [place] vs. transplanted heart: [place] heart Qualified Code(s): I25.10 - Atherosclerotic heart disease of [place] coronary artery without angina pectoris
[2024-11-04] MEDS ORDERED: MoRPHine SULFATE 4 MG/ML 1 ML CARP\\VIAL IV PRN (19:06)
[2024-11-04] MEDS ORDERED: oxyCODONE/ACETAMINOPHEN 5mg/325mg TAB PO PRN (19:06)
[2024-11-04] MEDS ORDERED: LORazepam 1 MG TAB PO PRN (19:55)
[2024-11-05 04:23] LABS: Basophils # (auto) 0.01 K/uL (0.00-0.20); Basophils % (auto) 0.1 %; Eosinophils # (auto) 0.01 K/uL (0.00-0.50); Eosinophils % (auto) 0.1 %; Hematocrit (blood only) 29.9 % (42.0-52.0); Hemoglobin 10.3 g/dl (14.0-18.0); Immature Granulocytes # (auto) 0.07 K/uL (0.01-0.20); Immature Granulocytes % (auto) 0.6 %; Lymphocytes # (auto) 0.72 K/uL (1.20-3.40); Lymphocytes % (auto) 6.4 %; Mean Corpuscular Hgb Conc 34.4 g/dL (32.0-36.0); Mean Corpuscular Volume 95.8 fL (80.0-100.0); Mean Platelet Volume 9.7 fL (9.4-12.4); Monocytes # (auto) 1.06 K/uL (0.11-0.59); Monocytes % (auto) 9.4 %; Neutrophils # (auto) 9.42 K/uL (1.40-6.50); Neutrophils % (auto) 83.4 %; Platelet Count 197 K/uL (130-400); RDW Coefficient of Variation 11.9 % (11.5-14.5); RDW Standard Deviation 41.3 fL (36.4-46.3); Red Blood Count 3.12 M/uL (4.70-6.10); White Blood Count 11.29 K/ul (4.8-10.8)
[2024-11-05 04:35] LABS: BUN Creatinine Ratio 15.9 (10-20); Calcium 8.7 mg/dl (8.6-10.3); Potassium 4.1 mmol/L (3.5-5.1)
--- NOTE | 2024-11-05 10:58 | Surgery Progress Note ---
Date of Service November 05, 2024 Assessment & Plan (1) S/P vascular surgery: Plan: Doing well post op day 1. Increase ambulation. Can D/C tomorrow from vascular surg standpoint. Admission and Anticipated Discharge Date Admission Date: November 02, 2024 Subjective Patient claims left foot feels much better. No pain in foot Physical Exam Constitutional: WD/WN, vitals as above Respiratory: normal respiratory effort; no respiratory distress Cardiovascular: RRR, no murmur, no edema good dopplers in left foot Neurologic: CN's II-XI intact bilaterally and moves all extremities Psychiatric: A+Ox3, euthymic affect Results & Data Vital Signs (Past 12 Hours) Vital Signs Temp Pulse Resp BP Pulse Ox Pulse Ox O2 Del Method 11/05/24 09:06 100 11/05/24 09:00 85 16 146/86 H 100 Room Air 11/05/24 08:00 156/85 H 11/05/24 08:00 96 H 19 98 Room Air 11/05/24 08:00 37.0 C 11/05/24 07:54 163/89 H 11/05/24 07:50 Room Air 11/05/24 07:31 163/81 H 11/05/24 07:27 122 H 24 99 11/05/24 07:17 123/74 11/05/24 07:17 123/74 11/05/24 07:12 73 15 99 11/05/24 07:03 67 16 99 11/05/24 07:00 133/71 11/05/24 07:00 133/71 11/05/24 06:57 69 14 100 11/05/24 06:51 87 11/05/24 06:45 130/70 11/05/24 06:39 73 22 98 11/05/24 06:24 77 16 100 11/05/24 06:15 134/64 11/05/24 06:06 73 16 99 11/05/24 06:00 151/76 H 11/05/24 06:00 151/76 H 11/05/24 05:45 144/79 H 11/05/24 05:45 144/79 H 11/05/24 05:45 83 18 11/05/24 05:30 164/83 H 11/05/24 05:21 77 20 99 11/05/24 05:16 164/75 H 11/05/24 05:16 164/75 H 11/05/24 05:09 79 23 100 11/05/24 05:00 123/83 11/05/24 05:00 123/83 11/05/24 05:00 123/83 11/05/24 04:46 128/93 11/05/24 04:46 128/93 11/05/24 04:36 86 17 100 11/05/24 04:30 98/59 L 11/05/24 04:30 98/59 L 11/05/24 04:24 79 14 99 11/05/24 04:15 152/84 H 11/05/24 04:15 152/84 H 11/05/24 04:15 152/84 H 11/05/24 04:12 76 16 98 11/05/24 04:00 161/74 H 11/05/24 04:00 161/74 H 11/05/24 04:00 36.6 C 11/05/24 03:57 82 17 99 11/05/24 03:30 148/80 H 11/05/24 03:30 148/80 H 11/05/24 03:27 106 H 16 97 11/05/24 03:18 85 16 100 11/05/24 03:16 127/74 11/05/24 03:16 127/74 11/05/24 03:16 127/74 11/05/24 03:09 77 14 97 11/05/24 03:06 94 H 18 97 11/05/24 03:00 141/62 H 11/05/24 03:00 141/62 H 11/05/24 02:57 97 H 16 98 11/05/24 02:30 133/77 11/05/24 02:27 93 H 24 99 11/05/24 02:15 145/67 H 11/05/24 02:15 145/67 H 11/05/24 02:15 145/67 H 11/05/24 02:12 101 H 16 99 11/05/24 01:45 126/70 11/05/24 01:45 126/70 11/05/24 01:30 137/69 11/05/24 01:24 84 17 100 11/05/24 01:15 138/69 11/05/24 01:15 138/69 11/05/24 01:15 80 18 93 11/05/24 01:09 Room Air 11/05/24 01:00 74 18 11/05/24 00:30 77 17 100 11/05/24 00:30 135/69 11/05/24 00:30 135/69 11/05/24 00:15 125/69 11/05/24 00:00 76 17 11/05/24 00:00 107/60 11/05/24 00:00 107/60 11/05/24 00:00 87 11/05/24 00:00 36.9 C 11/04/24 23:59 96 11/04/24 23:46 173/79 H 11/04/24 23:45 93 H 22 97 11/04/24 23:12 81 19 98 11/04/24 23:00 121/61 11/04/24 23:00 121/61 O2 Del Method 11/05/24 09:06 Room Air 11/05/24 09:00 11/05/24 08:00 11/05/24 08:00 11/05/24 08:00 11/05/24 07:54 11/05/24 07:50 11/05/24 07:31 11/05/24 07:27 11/05/24 07:17 11/05/24 07:17 11/05/24 07:12 11/05/24 07:03 11/05/24 07:00 11/05/24 07:00 11/05/24 06:57 11/05/24 06:51 11/05/24 06:45 11/05/24 06:39 11/05/24 06:24 11/05/24 06:15 11/05/24 06:06 11/05/24 06:00 11/05/24 06:00 11/05/24 05:45 11/05/24 05:45 11/05/24 05:45 11/05/24 05:30 11/05/24 05:21 11/05/24 05:16 11/05/24 05:16 11/05/24 05:09 11/05/24 05:00 11/05/24 05:00 11/05/24 05:00 11/05/24 04:46 11/05/24 04:46 11/05/24 04:36 11/05/24 04:30 11/05/24 04:30 11/05/24 04:24 11/05/24 04:15 11/05/24 04:15 11/05/24 04:15 11/05/24 04:12 11/05/24 04:00 11/05/24 04:00 11/05/24 04:00 11/05/24 03:57 11/05/24 03:30 11/05/24 03:30 11/05/24 03:27 11/05/24 03:18 11/05/24 03:16 11/05/24 03:16 11/05/24 03:16 11/05/24 03:09 11/05/24 03:06 11/05/24 03:00 11/05/24 03:00 11/05/24 02:57 11/05/24 02:30 11/05/24 02:27 11/05/24 02:15 11/05/24 02:15 11/05/24 02:15 11/05/24 02:12 11/05/24 01:45 11/05/24 01:45 11/05/24 01:30 11/05/24 01:24 11/05/24 01:15 11/05/24 01:15 11/05/24 01:15 11/05/24 01:09 11/05/24 01:00 11/05/24 00:30 11/05/24 00:30 11/05/24 00:30 11/05/24 00:15 11/05/24 00:00 11/05/24 00:00 11/05/24 00:00 11/05/24 00:00 11/05/24 00:00 11/04/24 23:59 Room Air 11/04/24 23:46 11/04/24 23:45 11/04/24 23:12 11/04/24 23:00 11/04/24 23:00
--- NOTE | 2024-11-05 12:58 | Hospitalist Progress Note ---
Date of Service November 05, 2024 Assessment & Plan (1) Lower extremity arterial insufficiency, severe, left: Plan: 69-year-old male with a history of severe PAD, CAD with PCI, and ongoing tobacco use who presents with evidence of chronic nonhealing left arterial insufficiency ulcer with ? superimposed cellulitis. POD #1 - s/p left [facility] and [facility] endarterectomies by Dr Marty Maurer Doing well from surgical standpoint Pain controlled Moving bowels Eating Hemodynamically stable Labs acceptable OOB to chair/BR PT, OT Dr Maurer states he might be able to d/c home Thursday Continue the following: * asa * plavix * antibiotics for possible L foot cellulitis * statin -------- s/p arteriogram of b/l Legs 11/[address] Waqar Etienne results - Right lower extremity-- -Common iliac - calcified, 60% ostial stenosis -External iliac -- heavily calcified 100% occlusion just after take-off internal iliac. -Internal iliac -- 95% ostial, provides collaterals to distal [facility]. -[facility]--occluded, reconstitutes distally Left lower extremity-- -Common iliac -- 50% mid stenosis with calcified nodule (no gradient across stenosis) -External iliac -- 60-70% proximal stenosis -Internal iliac -- 50% ostial stenosis. -[facility]--99% acute appearing stenosis with sluggish distal flow. -[facility] - Sluggish flow, calcified with 50% mid, distal disease -Popliteal -- poorly visualized but appears heavily calcified and potentially occluded in mid-distal segment. (2) Acute blood loss anemia: Plan: 5 gram drop in hemoglobin since admission much of this was due to operative blood loss (600cc) phlebotomy also making worse despite the drop no need for PRBCs at this time simply repeat CBC am would advise Fe supplementation at d/c for 1-2 months, however (3) Arterial leg ulcer: Plan: left foot/heel non-healing should improve with intervention of #1 above betadine to wound, cover w/ optifoam (4) Cellulitis: Plan: left foot - minimal stop rocephin change to PO keflex 500 QID (5) Hypertension: Plan: due to acute blood loss anemia amlodipine, lisinopril, and HCTZ were on hold can resume amlodipine today cont coreg with his hyponatremia would advise NOT resuming HCTZ (6) PAD (peripheral artery disease): Plan: severe, see #1 above (7) Cirrhosis: Plan: h/o HepC s/p sofosbuvir/velpatasvir 12-week treatment 2020 unfortunately he has continued alcohol use of approximately 2 beers daily History of small esophageal varices - EGD 10/2022. remains compensated on exam LFTs & INR all wnl (8) Alcohol use disorder: Plan: Endorses 5 days/week alcohol use --> 1-2 beers Cessation recommended given underlying cirrhosis still no withdrawal symptoms at this time cont to monitor cont AWSS cont folate cont thiamine low threshold to add gabapentin taper, etc. (9) Current smoker: Plan: nicoderm patch if desired general counselor to quit (10) Coronary artery disease: Plan: History of PCI RCA 02/2020 then in-stent restenosis post PCI 04/2020 no ischemic symptoms at this time Echo 12/11: EF 65-70%. No significant valvular abnormalities. Continue DAPT, statin, BB hold VICKI (11) Hyponatremia: Plan: 126 at time of admission low urine osm low-normal urine Na suspect potomania and/or solute depletion solute depletion could be from dietary factors and/or HCTZ use was 131 yesterday, now 128 today repeat urine Na 11 - again c/w solute deficiency liberalize diet add NaCl tabs 1gm daily repeat BMP am Plan hyperglycemia - glucose 155 Hba1c 5.3% thus, hyperglycemia was 2nd to stress of #1 d/c tele move to med/surg home on Thursday if passes PT/OT evals? Admission and Anticipated Discharge Date Admission Date: November 02, 2024 Subjective patient has moved his bowels multiple times per staff eating well he does feel weak, however he is able to get OOB without much assistance some soreness in left groin from the surgery left foot pain just about gone denies dyspnea denies chest pain denies N/V Review of Systems Review of Systems: cv - no orthopnea, no chest pain pulm - no dyspnea, no cough GI - no N/V Physical Exam Physical Exam: gen - laying in bed comfortably, NAD neck - no JVD mouth - MMM heart - RRR, s1 s2, no murmur lungs - scant scattered end-exp wheeze b/l, good airation otherwise, no rales abd - soft NT ND BS+ vascular - left popliteal pulse 1-2+; DP and pos tib pulses L foot about 1+; cap refill 2-3 sec L foot; foot is warm extremities - no edema b/l neuro - no tremor or signs of etoh withdrawal Results & Data Results & Data Vital Signs (Past 12 Hours) Vital Signs Temp Pulse Resp BP Pulse Ox Pulse Ox O2 Del Method 11/05/24 11:09 37.5 C 11/05/24 09:06 100 11/05/24 09:00 85 16 146/86 H 100 Room Air 11/05/24 08:00 156/85 H 11/05/24 08:00 96 H 19 98 Room Air 11/05/24 08:00 37.0 C 11/05/24 07:54 163/89 H 11/05/24 07:50 Room Air 11/05/24 07:31 163/81 H 11/05/24 07:27 122 H 24 99 11/05/24 07:17 123/74 11/05/24 07:17 123/74 11/05/24 07:12 73 15 99 11/05/24 07:03 67 16 99 11/05/24 07:00 133/71 11/05/24 07:00 133/71 11/05/24 06:57 69 14 100 11/05/24 06:51 87 11/05/24 06:45 130/70 11/05/24 06:39 73 22 98 11/05/24 06:24 77 16 100 11/05/24 06:15 134/64 11/05/24 06:06 73 16 99 11/05/24 06:00 151/76 H 11/05/24 06:00 151/76 H 11/05/24 05:45 144/79 H 11/05/24 05:45 144/79 H 11/05/24 05:45 83 18 11/05/24 05:30 164/83 H 11/05/24 05:21 77 20 99 11/05/24 05:16 164/75 H 02/15/25 05:16 164/75 H 11/05/24 05:09 79 23 100 11/05/24 05:00 123/83 11/05/24 05:00 123/83 11/05/24 05:00 123/83 11/05/24 04:46 128/93 11/05/24 04:46 128/93 11/05/24 04:36 86 17 100 11/05/24 04:30 98/59 L 11/05/24 04:30 98/59 L 11/05/24 04:24 79 14 99 11/05/24 04:15 152/84 H 11/05/24 04:15 152/84 H 11/05/24 04:15 152/84 H 11/05/24 04:12 76 16 98 11/05/24 04:00 161/74 H 11/05/24 04:00 161/74 H 11/05/24 04:00 36.6 C 11/05/24 03:57 82 17 99 11/05/24 03:30 148/80 H 11/05/24 03:30 148/80 H 11/05/24 03:27 106 H 16 97 11/05/24 03:18 85 16 100 11/05/24 03:16 127/74 11/05/24 03:16 127/74 11/05/24 03:16 127/74 11/05/24 03:09 77 14 97 11/05/24 03:06 94 H 18 97 11/05/24 03:00 141/62 H 11/05/24 03:00 141/62 H 11/05/24 02:57 97 H 16 98 11/05/24 02:30 133/77 11/05/24 02:27 93 H 24 99 11/05/24 02:15 145/67 H 11/05/24 02:15 145/67 H 11/05/24 02:15 145/67 H 11/05/24 02:12 101 H 16 99 11/05/24 01:45 126/70 11/05/24 01:45 126/70 11/05/24 01:30 137/69 11/05/24 01:24 84 17 100 11/05/24 01:15 138/69 11/05/24 01:15 138/69 11/05/24 01:15 80 18 93 11/05/24 01:09 Room Air 11/05/24 01:00 74 18 Laboratory Results Laboratory Results - last 48 hr 11/04/24 11/04/24 11/04/24 05:56 07:28 08:17 WBC 6.56 RBC 4.19 L Hgb 13.8 L Hct 39.7 L MCV 94.7 MCH 32.9 MCHC 34.8 RDW Std Deviation 42.2 RDW Coeff of Cj 12.1 Plt Count 233 MPV 9.8 Immature Gran % (Auto) 0.2 Neut % (Auto) 48.9 Lymph % (Auto) 30.6 [place] % (Auto) 16.5 Eos % (Auto) 2.6 Baso % (Auto) 1.2 Neut # (Auto) 3.21 Lymph # (Auto) 2.01 [place] # (Auto) 1.08 H Eos # (Auto) 0.17 Baso # (Auto) 0.08 Immature Gran # (Auto) 0.01 Heparin Anti-Xa, Unfract 0.56 Sodium TNP 131 L Potassium TNP 4.1 Chloride 97 L Carbon Dioxide 26 Anion Gap TNP BUN 11 Creatinine 0.73 Est Cr Clr Drug Dosing 95.8 eGFR 97.27 BUN/Creatinine Ratio 15.1 Glucose 92 POC Glucose 108 H Estimat Average Glucose 105 Hemoglobin A1c 5.3 Calcium 9.2 Magnesium TNP 2.2 Urine Osmolality Ur Random Sodium Nasal Screen MRSA (PCR) 11/04/24 11/04/24 11/04/24 10:19 17:28 21:56 WBC 11.41 H RBC 3.37 L Hgb 11.1 L Hct 32.9 L MCV 97.6 MCH 32.9 MCHC 33.7 RDW Std Deviation 43.2 RDW Coeff of Cj 12.1 Plt Count 207 MPV 9.7 Immature Gran % (Auto) 0.8 Neut % (Auto) 86.2 Lymph % (Auto) 6.7 [place] % (Auto) 5.3 Eos % (Auto) 0.5 Baso % (Auto) 0.5 Neut # (Auto) 9.83 H Lymph # (Auto) 0.76 L [place] # (Auto) 0.61 H Eos # (Auto) 0.06 Baso # (Auto) 0.06 Immature Gran # (Auto) 0.09 Heparin Anti-Xa, Unfract Sodium Potassium Chloride Carbon Dioxide Anion Gap BUN Creatinine Est Cr Clr Drug Dosing eGFR BUN/Creatinine Ratio Glucose POC Glucose 115 H 246 H Estimat Average Glucose Hemoglobin A1c Calcium Magnesium Urine Osmolality Ur Random Sodium Nasal Screen MRSA (PCR) 11/04/24 11/04/24 11/05/24 23:30 Unknown 03:50 WBC 11.29 H RBC 3.12 L Hgb 10.3 L Hct 29.9 L MCV 95.8 MCH 33.0 MCHC 34.4 RDW Std Deviation 41.3 RDW Coeff of Cj 11.9 Plt Count 197 MPV 9.7 Immature Gran % (Auto) 0.6 Neut % (Auto) 83.4 Lymph % (Auto) 6.4 [place] % (Auto) 9.4 Eos % (Auto) 0.1 Baso % (Auto) 0.1 Neut # (Auto) 9.42 H Lymph # (Auto) 0.72 L [place] # (Auto) 1.06 H Eos # (Auto) 0.01 Baso # (Auto) 0.01 Immature Gran # (Auto) 0.07 Heparin Anti-Xa, Unfract Sodium 128 L Potassium 4.1 Chloride 98 Carbon Dioxide 24 Anion Gap 6 BUN 10 Creatinine 0.63 Est Cr Clr Drug Dosing 111.0 eGFR 101.69 BUN/Creatinine Ratio 15.9 Glucose 146 H POC Glucose 191 H Estimat Average Glucose Hemoglobin A1c Calcium 8.7 Magnesium Urine Osmolality Ur Random Sodium Nasal Screen MRSA (PCR) Negative 11/05/24 11/05/24 07:34 Unknown WBC RBC Hgb Hct MCV MCH MCHC RDW Std Deviation RDW Coeff of Cj Plt Count MPV Immature Gran % (Auto) Neut % (Auto) Lymph % (Auto) [place] % (Auto) Eos % (Auto) Baso % (Auto) Neut # (Auto) Lymph # (Auto) [place] # (Auto) Eos # (Auto) Baso # (Auto) Immature Gran # (Auto) Heparin Anti-Xa, Unfract Sodium Potassium Chloride Carbon Dioxide Anion Gap BUN Creatinine Est Cr Clr Drug Dosing eGFR BUN/Creatinine Ratio Glucose POC Glucose 127 H Estimat Average Glucose Hemoglobin A1c Calcium Magnesium Urine Osmolality 174 L Ur Random Sodium 11 Nasal Screen MRSA (PCR) PG Care Time/CCT Total # of Minutes Spent Total Time Spent with Patient: Total time spent is greater than 50% in coordination of care (as documented) at patient's floor/unit and/or counseling patient: Coding Level of Care Code 78322 SUB INP/OBS CARE 350MIN Diagnoses Lower extremity arterial insufficiency, severe, left I73.9 Acute blood loss anemia D62 Arterial leg ulcer L97.909 Cellulitis L03.90 Hypertension I10 PAD (peripheral artery disease) I73.9 Cirrhosis K74.60 Alcohol use disorder F10.90 Current smoker F17.200 Coronary artery disease I25.10 Associated angina: without angina Coronary Disease-Associated Artery/Lesion type: unspecified vessel or lesion type [place] vs. transplanted heart: [place] heart Hyponatremia E87.1 (10) Coronary artery disease Associated angina: without angina Coronary Disease-Associated Artery/Lesion type: unspecified vessel or lesion type [place] vs. transplanted heart: [place] heart Qualified Code(s): I25.10 - Atherosclerotic heart disease of [place] coronary artery without angina pectoris
[2024-11-05] MEDS: SODIUM CHLORIDE 1 GM TABLET PO SCH (13:25)
[2024-11-05] MEDS: cephALEXin 500 MG CAP PO SCH (17:04)
[2024-11-06 07:21] VITALS: RESP 16; O2SAT 99
[2024-11-06 07:51] LABS: Hemoglobin 8.8 g/dl (14.0-18.0); Mean Corpuscular Hemoglobin 33.6 pg (25.0-34.0); Mean Corpuscular Hgb Conc 35.2 g/dL (32.0-36.0); Mean Corpuscular Volume 95.4 fL (80.0-100.0); Platelet Count 183 K/uL (130-400); RDW Standard Deviation 41.7 fL (36.4-46.3); Red Blood Count 2.62 M/uL (4.70-6.10); White Blood Count 9.37 K/ul (4.8-10.8)
[2024-11-06 08:08] LABS: BUN Creatinine Ratio 16.4 (10-20); Calcium 8.4 mg/dl (8.6-10.3); Creatinine Clr Calc Pharmacy 127.2 ml/min; Potassium 3.7 mmol/L (3.5-5.1)
[2024-11-06 11:51] LABS: Hematocrit (blood only) 25.7 % (42.0-52.0); Hemoglobin 8.9 g/dl (14.0-18.0)
[2024-11-06 14:09] VITALS: PULSE 79; TEMP 97.9
[2024-11-06] MEDS: FERROUS SULFATE 325 MG TAB PO SCH (15:38)
[2024-11-06 17:15] LABS: Hematocrit (blood only) 26.9 % (42.0-52.0); Hemoglobin 9.3 g/dl (14.0-18.0)
--- NOTE | 2024-11-06 17:38 | Discharge Summary ---
Discharge Summary Date of Service date of admission - November 02, 2024 date of discharge - November 06, 2024 Principal Dx & Hospital Course #1 = Principal Diagnosis (1) Lower extremity arterial insufficiency, severe, left: 69-year-old male with a history of severe PAD, CAD with PCI, and ongoing tobacco use who presented with evidence of chronic nonhealing left arterial insufficiency ulcer on his left heel with possible superimposed cellulitis. In addition, he had been having severe rest pain in the left foot along with cold feeling. Noninvasive arterial duplex study of the LLE was completed on hospital day #1 showing diffuse monophasic waveforms suggesting proximal arterial disease. Therefore, Dr Waqar Etienne - [facility] [place] Cardiology/Vascular - was consulted who performed arteriogram. Results - Right lower extremity-- -Common iliac - calcified, 60% ostial stenosis -External iliac -- heavily calcified 100% occlusion just after take-off internal iliac. -Internal iliac -- 95% ostial, provides collaterals to distal A[employer]ON[employer] ENGINEERING OFFICER. -AERONAUTICAL ENGINEERING OFFICER--occluded, reconstitutes distally Left lower extremity-- -Common iliac -- 50% mid stenosis with calcified nodule (no gradient across stenosis) -External iliac -- 60-70% proximal stenosis -Internal iliac -- 50% ostial stenosis. -AERONAUTICAL ENGINEERING OFFICER--99% acute appearing stenosis with sluggish distal flow. -SFA - Sluggish flow, calcified with 50% mid, distal disease -Popliteal -- poorly visualized but appears heavily calcified and potentially occluded in mid-distal segment. Following his arteriogram he was placed on a standard heparin drip and asa/plavix were continued. Dr Etienne advised endarterectomy of the nearly-occluded common femoral artery and thus Dr Marty Maurer from [facility] Vascular surgery was subsequently consulted. On 11/04/24 Dr Maurer performed left AERONAUTICAL ENGINEERING OFFICER & SFA endarterectomies. He had about 600cc of blood loss during the procedure. Post-op course was complicated by acute blood loss anemia with ecchymoses of the proximal left thigh. Otherwise he did well - eating/drinking, improved pain of the left foot, improved perfusion of the foot on exam, moving his bowels, and ambulating without difficulty. At discharge he will continue asa daily, plavix daily, statin, and a short course of oral antibiotics for possible left foot cellulitis. He will f/u with Dr Maurer shortly after discharge for incision check/post-op check. (2) Acute blood loss anemia: 6 gram drop in hemoglobin since admission admit hemoglobin was 15.3, falling to 9.3 on day of discharge (2 hemoglobin levels on day of discharge were similar indicating no ongoing losses) blood loss was due to - * operative losses (600cc) * phlebotomy also made worse * he also had some ecchymoses in the left medial proximal thigh he had no overt GI blood loss while here recommended iron supplementation at d/c he should have a follow-up CBC within the week of discharge to ensure stability (3) Arterial leg ulcer: left foot/heel chronic, non-healing should improve with intervention of #1 above along with appropriate wound care wound instructions given to patient: * cleanse wound with sterile saline * then paint wound with betadine & allow to dry * then cover w/ optifoam perform daily & prn he should f/u with the [facility] clinic within 1-2 weeks for recheck of the heel (4) Cellulitis: left foot - minimal source - heel ulceration received IV rocephin during the stay then changed to PO keflex 500 TID for 3 additional days post-discharge (5) Hypertension: due to acute blood loss anemia amlodipine, lisinopril, and HCTZ were on hold for much of the stay amlodipine was ultimately resumed at 10mg daily coreg 6.25mg BID was continued lisinopril was held upon discharge, and I recommended NOT resuming HCTZ due to hyponatremia, etc. (6) PAD (peripheral artery disease): severe, see #1 above (7) Cirrhosis: h/o HepC s/p sofosbuvir/velpatasvir 12-week treatment 2020 unfortunately he has continued alcohol use of approximately 2 beers daily History of small esophageal varices - EGD 10/2022 was compensated on exam during the visit LFTs & INR all wnl he did not show signs of etoh withdrawal while here (8) Alcohol use disorder: Endorses 5 days/week alcohol use --> 1-2 beers each sitting Cessation recommended given underlying cirrhosis fortunately no withdrawal symptoms while here (9) Current smoker: long-standing dependence counseled to quit was also given written smoking cessation information (10) Coronary artery disease: History of PCI RCA 02/2020 then in-stent restenosis post PCI 04/2020 no ischemic symptoms at any time during this hospitalization Echo 12/11: EF 65-70%. No significant valvular abnormalities. Continue DAPT, statin, BB Holding VICKI due to acute blood loss I suspect we will be able to resume the VICKI post-discharge (11) Hyponatremia: 126 at time of admission low urine osm low urine Na (11) suspect potomania and/or solute depletion solute depletion could be from dietary factors and/or HCTZ use diet was liberalized added NaCl tabs 1gm daily Na level improved to 132 on day of discharge recommended the following - * NaCl tablet 1 gram daily x 5 days upon transition home * stop HCTZ * repeat BMP within a week of discharge for stability Plan seen by PT/OT - cleared for home Notes For Next Care Provider 1. needs wound care clinic follow-up for L heel ulceration 2. follow-up Dr Maurer 1-2 weeks post-discharge 3. repeat CBC, BMP within a week of discharge for stability of hemoglobin & sodium, respectively Medication Changes From Visit 1. keflex 500mg TID x 3 days 2. NaCl 1gm daily x 5 days 3. HOLD lisinopril for now 4. STOP HCTZ 5. ferrous sulfate 325mg daily x ~3 months 6. norco q6h prn pain Admission HPI Per Admitting Provider Alessandro Robert is a 69-year-old male with a past medical history of nonhealing left heel wound on outpatient doxycycline 100 mg p.o. twice daily, peripheral artery disease with severe right external iliac disease DEE DEE 0.36, and moderate left- sided disease DEE DEE 0.56 08/2023 with some right lower extremity claudication, CAD with inferior IA RCA PCI 02/2020 in-stent restenosis post PCI 04/2020, hypertension, hyperlipidemia, tobacco use, and hepatitis C presents emergency department with worsening left heel healing wound with concern for secondary cellulitis. Patient seen at the bedside. Several months of nonhealing wound on his LEFT foot. Gradually worsening. Pain first started a few months ago around a dry crack in the callus. Wound did not heal, and callus would split an dcrack. Air in his house is dry due to a woodstove. Did clean the callus with sandpaper which seemed to help. In the last few weeksd (~4 weeks) wound seemed to open up much more. 3 weeks ago d'started to look more nasty' L foot now goes completely numb while sleeping Pressure hurts his heel, but separate from this does have pain going up and down stairs which is worse in his L foot which improves of ~1 minute. Tends to have a lot of pain when laying in bed as well. Does find he gets some relief haning his legs over the edge of the bed at night. No chest pain No shortness of breath No fevers or chills. Feels cold over the winter, but not 'chills.' No nausea, vomiting, diarrhea Triple Abx ointment and bandaids daily, have not helped much. Took AM medications. Still on ASA and Plaavix. Rosuvastatin, hctz, lisinopril, amlodipine, carvedilol. +tobacco use. 'Down to a less than 1/2ppd,around 5 cigarettes per day'. Endorses motivation to quit now that his PAD has worsened. Declines nicotine patch, but will ask if he changes his mind. Medical History: Reviewed Medications: Reviewed Surgical History: Reviewed Family history: Reviewed Allergies: Reviewed Social History: FOrmer heavy ETOH use. 'Now 1-2 beers a day at most, and 2 ETOH free days each week.' No history of withdrawal or shakes. Code Status: Surrogate DM would be girlfriend Isaura Beckford and/or his brother Ajay Robert. Full Code. Discharge Exam gen - sitting up in bed, NAD, looks good neck - no JVD mouth - MMM heart - RRR, s1 s2, no murmur lungs - scant scattered end-exp wheeze b/l, good airation otherwise, no rales abd - soft NT ND BS+ vascular - left popliteal pulse 1-2+; DP and pos tib pulses L foot about 1-2+; cap refill 2-3 sec L foot; foot is warm extremities - no edema b/l neuro - no tremor or signs of etoh withdrawal skin - ulcer left heel clean, dry, no purulent drainage or malodor; no residual cellulitis of left foot; dressings intact L groin; ecchymoses/mild hematoma/swelling proximal left thigh especially medially Discharge Plan Discharge Items Patient Disposition: Home - Self-Care Reason For Visit: WOUND ON LEFT HEEL Discharge Diagnosis: 1. Severe Peripheral Arterial Disease (PAD) of left leg 2. Endarterectomy surgery of left femoral artery - Dr Marty Maurer, [facility] Vascular Surgery 3. Hyponatremia (low sodium level) 4. Acute blood loss anemia due to #2 - discharge hemoglobin 9.3 5. High blood pressure 6. Left heel wound - due to #1 7. Possible infection of left heel wound - improved Condition on Discharge: Good Activity: As commented below Activity Comment: light activities only (walking, etc) Lifting: No more than 10 pounds Bathing Comment: NO tub baths or swimming; ok to shower in 48 hours. Sexual Activity: Wait until after follow-up appointment Exercise/Sports: Wait until after follow-up appointment Driving/Machine Use: NO Driving unless cleared by vascular surgery Non-emergency contact: Primary Care Provider and Surgeon Call non-emergency contact if: you have any medication questions, your symptoms worsen, your pain is not controlled, your pain is worsening, your pain is unusual for you, your pain is concerning for you, your temperature is above 101, your wound has increased redness, your wound has increased drainage and your wound pain has increased Follow-up/Referrals: Danette Cai CRNP [Nurse Practitioner] - (we will make a referral to the [facility] at [facility] for your left heel wound ) Arpit Alvarado DO [Primary Care Provider] - (within 5-7 days ) Tom Maurer MD [Physician] - Diet: Regular Addtl Attending Provider Instructions: Mr Robert, You were hospitalized due to ongoing pain of your left foot as well as a non- healing ulceration of the left heel. You were seen by Dr Jose Etienne of [facility] Cardiology who performed arteriogram of your legs. This showed a severe blockage of the femoral artery of the left leg. This is the main artery that feeds blood to the left leg. Dr Etienne then asked Dr Marty Maurer from [facility] to see you in consult. Dr Maurer recommended endarterectomy of the blocked femoral artery. You went to the operating room on 11/04/24 for your surgery. The surgery was successful at restoring blood flow through the femoral artery. Following surgery you overall did very nicely. The blood flow to the left foot is considerably better. The foot is now warm and your pain is better. If there was any low-grade infection in the left heel it is also better. Due to blood loss from your surgery you are now anemic. This means your red cells are lower than normal. You will have to take iron supplements to restore your red cells. In addition, you had low sodium levels during the stay. I suspect your hydrochlorothiazide water pill caused the bulk of the low sodium problem. Dietary factors may be playing a role as well. Recommendations - 1. antibiotics - cephalexin 500mg three times daily x 3 days; start this tonight if possible 2. wound care instructions for the left heel - * every morning change the dressing * after removing the old dressing please wash the wound with sterile saline (you can purchase this at [facility], [employer], etc) * pat dry the wound * then "paint" the wound with betadine (again you can purchase betadine at [facility], etc); you can squirt some betadine on some cotton balls and cleanse the wound with the betadine-soaked cotton balls * let the betadine dry (takes 3-5 minutes for it to dry) * then cover with a new optifoam dressing * again change daily and as needed * start morning of 11/07/24 3. salt tablet - take daily for 5 days starting 11/07/24 4. take an rpuv-jgl-qymkmji iron supplement - ferrous sulfate 325mg once daily. Take for about 3 months. * iron can cause constipation * it can also make your stools look dark (sometimes ashen color, green, grullon, etc) * these are normal side effects 5. for pain - hydrocodone-acetaminophen, 1 tablet every 6 hours as needed * this is a narcotic pain-killer medicine * do NOT drink alcohol with this medicine * do NOT drive a car while on this medicine * it will cause you to be constipated * in addition, this medicine contains tylenol (acetaminophen) in it; thus, do not take extra mczi-ehf-osomphh tylenol if taking this medicine 6. please avoid all forms of alcohol if at all possible 7. HOLD your lisinopril 8. STOP your hydrochlorothiazide 9. have your family doctor repeat a CBC blood count and sodium level in about 4-5 days. Follow-up - see separate [facility] - * you have any concerns about your operative site in the left groin - increased pain/swelling/redness/drainage/etc. * you have fever over 100 degrees * you have worsening left foot pain, swelling, drainage, etc * you have severe diarrhea (3 or more liquid stools in 24 hours) * you have worsening shortness of breath * you have chest pains * you have worsening pain in the left thigh or left bailey * any other concerns It was our pleasure to care for you! Addtl [employer] Feeder Provider Instructions: SURGICAL INSTRUCTIONS: ACTIVITY RECOMMENDATIONS: Keep wound dry for 48 hours after surgery, then may wash area but do not soak under water (no tub baths - showers only). SPECIAL CARE INSTRUCTIONS: Call your doctor if: * Temperature above 101 degrees * Pain not relieved by pain medicine ordered * There is increased drainage or redness from any incision * You have any unanswered questions or concerns Call [phone] to schedule a follow up appointment if one not already scheduled Pending Studies at Discharge: No Stand-Alone Forms: My [facility] [employer], Smoking Cessation Medications and DC Order Prescriptions: New sodium chloride 1,000 mg Tablet,Soluble 1,000 mg PO DAILY 5 Days Qty: 5 0RF Rx Instructions: start 11/07/24 hydrocodone-acetaminophen 5-325 mg tablet 1 tab PO Q6H PRN (Reason: pain) Qty: 10 0RF ferrous sulfate 325 mg (65 mg iron) tablet 325 mg PO DAILY Qty: 30 2RF Rx Instructions: purchase [id number] Continued amlodipine 10 mg tablet 10 mg PO DAILY Qty: 90 3RF carvedilol 6.25 mg tablet 6.25 mg PO BID Qty: 180 3RF Rx Instructions: must administer with a meal/food triamcinolone acetonide 0.5 % cream 1 applic TOP BID PRN (Reason: Rash) Qty: 15 1RF rosuvastatin 10 mg tablet 10 mg PO DAILY Qty: 90 3RF clopidogrel 75 mg tablet 75 mg PO DAILY Qty: 30 6RF timolol maleate 0.5 % drops 1 drp OPB DAILY Rx Instructions: both eyes nitroglycerin [Nitrostat] 0.4 mg tablet, sublingual 0.4 mg sublingual PRN PRN (Reason: chest pain) Qty: 20 3RF Rx Instructions: every 5 mins up to 3 doses. If chest pain is unrelieved 5 minutes after 1 dose, call meclizine 12.5 mg tablet 12.5 mg PO TID PRN (Reason: dizziness) Qty: 30 0RF aspirin 81 mg Tablet,Delayed Release (Dr/Ec) 81 mg PO QAM Qty: 30 0RF Held lisinopril 40 mg tablet 40 mg PO DAILY Qty: 90 3RF Hold Instructions: hold unless your family doctor recommends resuming it Discontinued hydrochlorothiazide 12.5 mg tablet 12.5 mg PO DAILY Qty: 90 3RF sulfamethoxazole-trimethoprim [Bactrim DS] 800-160 mg tablet 1 tab PO BID Qty: 14 0RF doxycycline hyclate 100 mg capsule 100 mg PO BID Qty: 14 0RF Discharge Orders: Discharge Order (Routine); Ordered 11/06/24 Ordered By: Cyril Marc/Other Patient Handouts: PAD, Smoking and PAD Admission Data Admit Date/Time: 11/02/24 11:47 Attending Provider: Cyril Fiore Admit Provider: Lee Swain Primary Care Provider: Arpit Alvarado Other Providers: Jose Etienne; Tom Maurer Other Interventions: Discharge Summary Assessment (RN) Last Done: 11/06/24 17:38 Hospital Stay Data Consultations Cardiology/Vascular Surgery - Dr Jose Etienne [facility] Vascular Surgery - Dr Marty Maurer PT, OT Wound Care Procedures Performed Operation Date: 11/04/24 09:50 Actual Procedures Left Common and Superficial Femoral Artery Endarterectomy, Arteriography - Tom Maurer MD Arteriogram - 11/02/24 - Dr Waqar Etienne Right lower extremity-- -Common iliac - calcified, 60% ostial stenosis -External iliac -- heavily calcified 100% occlusion just after take-off internal iliac. -Internal iliac -- 95% ostial, provides collaterals to distal AERONAUTICAL ENGINEERING OFFICER. -AERONAUTICAL ENGINEERING OFFICER--occluded, reconstitutes distally Left lower extremity-- -Common iliac -- 50% mid stenosis with calcified nodule (no gradient across stenosis) -External iliac -- 60-70% proximal stenosis -Internal iliac -- 50% ostial stenosis. -AERONAUTICAL ENGINEERING OFFICER--99% acute appearing stenosis with sluggish distal flow. -SFA - Sluggish flow, calcified with 50% mid, distal disease -Popliteal -- poorly visualized but appears heavily calcified and potentially occluded in mid-distal segment. Diagnostic Imagining Performed Duplex Scan Lower Extremity Artery 11/02/24 09:11 US arterial duplex LE LT HISTORY: 69 years-old Male L leg non healing wound COMPARISON: Left foot radiographs of same day TECHNIQUE: Multiple real-time sonographic images of the left lower extremity arterial structures were obtained assessing grayscale appearance, color and spectral flow FINDINGS: Atherosclerosis. Monophasic waveforms noted throughout the entire leg. Dampened monophasic waveforms with spectral broadening noted within the left lower leg arteries. No definite flow identified within the dorsalis pedis artery. No significantly elevated peak systolic velocities identified to suggest high-grade stenosis. IMPRESSION: 1. Atherosclerosis with diffuse monophasic waveforms and diminished flow within the left lower leg. 2. No definite flow identified within the dorsalis pedis artery suggestive of age-indeterminate occlusion. ACT 112: Negative or not required by law. The above report was generated using voice recognition software. It may contain grammatical, syntax or spelling errors. Electronically signed by: Bryant Weldon M.D. 11/02/2024 11:33 AM Foot X-Ray 11/02/24 09:21 XR foot LT min 3V routine CLINICAL HISTORY: Left calcaneal region pain, non healing wound COMPARISON: Left foot radiographs October 25, 2024. FINDINGS: Severe joint space narrowing with osteophytosis and subchondral sclerosis of the first and second MTP joint is again noted. Tarsometatarsal joints are intact. There are no fractures within the left foot. No areas of bony erosion within the calcaneus are identified. IMPRESSION: 1. No evidence for acute osteomyelitis within the left calcaneus. 2. 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 ACT 112: Negative or not required by law. Electronically signed by: Herman King M.D. 11/02/2024 10:00 AM Pending Results Patient Have Any Pending Studies at Discharge: No Discharge Instructions Given to Patient (Per Discharging Provider) Mr Robert, You were hospitalized due to ongoing pain of your left foot as well as a non- healing ulceration of the left heel. You were seen by Dr Jose Etienne of [facility] Card[facility] who performed arteriogram of your legs. This showed a severe blockage of the femoral artery of the left leg. This is the main artery that feeds blood to the left leg. Dr Etienne then asked Dr Marty Maurer from [facility] to see you in consult. Dr Maurer recommended endarterectomy of the blocked femoral artery. You went to the operating room on 11/04/24 for your surgery. The surgery was successful at restoring blood flow through the femoral artery. Following surgery you overall did very nicely. The blood flow to the left foot is considerably better. The foot is now warm and your pain is better. If there was any low-grade infection in the left heel it is also better. Due to blood loss from your surgery you are now anemic. This means your red cells are lower than normal. You will have to take iron supplements to restore your red cells. In addition, you had low sodium levels during the stay. I suspect your hydrochlorothiazide water pill caused the bulk of the low sodium problem. Dietary factors may be playing a role as well. Recommendations - 1. antibiotics - cephalexin 500mg three times daily x 3 days; start this tonight if possible 2. wound care instructions for the left heel - * every morning change the dressing * after removing the old dressing please wash the wound with sterile saline (you can purchase this at [facility], [employer], etc) * pat dry the wound * then "paint" the wound with betadine (again you can purchase betadine at [facility], etc); you can squirt some betadine on some cotton balls and cleanse the wound with the betadine-soaked cotton balls * let the betadine dry (takes 3-5 minutes for it to dry) * then cover with a new optifoam dressing * again change daily and as needed * start morning of 11/07/24 3. salt tablet - take daily for 5 days starting 11/07/24 4. take an fjfp-zap-jngdpxj iron supplement - ferrous sulfate 325mg once daily. Take for about 3 months. * iron can cause constipation * it can also make your stools look dark (sometimes ashen color, green, grullon, etc) * these are normal side effects 5. for pain - hydrocodone-acetaminophen, 1 tablet every 6 hours as needed * this is a narcotic pain-killer medicine * do NOT drink alcohol with this medicine * do NOT drive a car while on this medicine * it will cause you to be constipated * in addition, this medicine contains tylenol (acetaminophen) in it; thus, do not take extra mbij-pww-pewmzup tylenol if taking this medicine 6. please avoid all forms of alcohol if at all possible 7. HOLD your lisinopril 8. STOP your hydrochlorothiazide 9. have your family doctor repeat a CBC blood count and sodium level in about 4-5 days. Follow-up - see separate section Return to [place] if - * you have any concerns about your operative site in the left groin - increased pain/swelling/redness/drainage/etc. * you have fever over 100 degrees * you have worsening left foot pain, swelling, drainage, etc * you have severe diarrhea (3 or more liquid stools in 24 hours) * you have worsening shortness of breath * you have chest pains * you have worsening pain in the left thigh or left bailey * any other concerns It was our pleasure to care for you! Total Time Total Time Spent Total Time Spent (In Minutes): 60 Coding Level of Care Code 54949 INP/OBS DISCH >30 MIN Diagnoses Lower extremity arterial insufficiency, severe, left I73.9 Acute blood loss anemia D62 Arterial leg ulcer L97.909 Cellulitis L03.90 Hypertension I10 PAD (peripheral artery disease) I73.9 Cirrhosis K74.60 Alcohol use disorder F10.90 Current smoker F17.200 Coronary artery disease I25.10 Associated angina: without angina Coronary Disease-Associated Artery/Lesion type: unspecified vessel or lesion type [place] vs. transplanted heart: [place] heart Hyponatremia E87.1
[2024-11-06 17:39] VITALS: BP 167/71
== END 2024-11-06 18:20 | disposition home or self-care (01) | DRG 253 ==
LOC: ED 08:07 → SUATTDRO 11:47 → 2S 11:47 → 1E 11-04 19:11 → 3N 11-05 14:02
PROC: CLB.AEB (2024-11-02 12:00)

== ENCOUNTER 2024-12-10 09:02 | Inpatient (IN) ==
[2024-12-10] MEDS ORDERED: VANCOMYCIN CONSULT ACTIVE PRN (09:33)
--- NOTE | 2024-12-10 09:43 | Emergency Department Note ---
Impression & Plan Cellulitis of hand, left ED Provider Note HISTORY OF PRESENT ILLNESS: Patient is a 69-year-old male presenting with left hand pain and swelling. Patient suffered a dog bite 4 days ago and was seen in the emergency department and started on Bactrim and clindamycin. He had sutures placed at that time. He states that he has been cleaning the wound with warm water and antibacterial soap and keeping it covered with Neosporin and gauze and compression wraps. He states that today he woke up and noticed significant redness and swelling to the left hand. Patient states that he was seen at [facility] and referred to the emergency department for further evaluation. Patient denies any numbness or tingling in the hand. Reports his hand just feels painful secondary to all of the swelling. Denies any fevers. Denies any nausea or vomiting. ROS: as above PHYSICAL EXAM: Constitutional: Patient appears in no acute distress. HENT: Head: Normocephalic and atraumatic. Eyes: EOMI, PERRL Mouth/Throat: Mucous membranes moist. Neck: Trachea midline. Neck supple. Musculoskeletal: - LUE: Wound with sutures in place overlying the dorsal left wrist. Patient is able to flex and extend at the wrist without difficulties. No appreciable drainage expressed from the laceration. Patient has diffuse redness and swelling that is all warm to the touch over the dorsal hand. No palpable crepitus. He is able to give thumbs up, okay sign and cross fingers. Intact radial pulse. Sensation intact to light touch about the nerve distributions of the hand. Skin: Warm and dry. No rash, erythema, pallor or cyanosis Psychiatric: Appropriate mood and affect for situation. Neurological: Alert and keenly responsive. CN II-XII grossly intact, moving all extremities equally and fully. MDM: - Vitals signs showed hypertension - History obtained via patient. History as above. - Chronic conditions affecting care: HLD; HTN; CAD; PAD - Differential diagnoses include, but are not limited to: Abscess; cellulitis; tenosynovitis - Order placed for continuous cardiac monitoring. At this time, monitor showed rate of 65 pm with normal sinus rhythm, per my interpretation. - External medical records reviewed. [facility] note from today was reviewed. Patient was seen there for his symptoms as noted. They referred him to the ER due to concern for infection. - Laboratory workup interpreted by myself showed normal WBC; slight hyponatremia (Na 133); normal lactate; CRP elevated (3.23); normal procalcitonin - Patient initially given IV vancomycin - Discussed case with pharmacy, who recommended Rocephin and Flagyl dosing, which was ordered. - On my assessment, patient had no discharge expressed from his incision. However, hospice was consulted for admission and on their assessment they were able to express some purulent drainage from the wound. They did remove some of the patient's sutures. - Given patient's obvious cellulitis and him being on outpatient antibiotics, will admit to hospitalist service for further evaluation and management after his failed antibiotic course. - Discussion was had with case assembler about patient's case and need for admission - Hospitalist consulted for admission - Patient admitted to [facility] hospitalist service for further evaluation and management. ASSESSMENT AND PLAN: Diagnosis: Left hand cellulitis Plan: Admit Past Med/Surg History Problem List (Updated 12/10/24 @ 11:39 by Devorah Gore MD) Cellulitis of hand, left (Acute) Dog bite (Acute) Laceration of left wrist (Acute) Arterial insufficiency with ischemic ulcer (Acute) Pain, lower leg S/P vascular surgery Acute blood loss anemia Hyponatremia Cellulitis (Acute) Arterial leg ulcer Lower extremity arterial insufficiency, severe, left (Acute) Screening for lung cancer Hypertension Alcohol use disorder Thrombocytopenia Dyslipidemia (Acute) Medical History PAD (peripheral artery disease) Coronary artery disease Cirrhosis Current smoker Colon cancer screening FIT test 2019,05/2022. Colonoscopy 04/21/23 - Tubular adenoma STEMI (ST elevation myocardial infarction) Hepatitis C Completed Treatment Psoriasis Cataract, bilateral Surgical History H/O colonoscopy 04/2023 Repeat 1 yr,[facility] [place] History of cataract surgery History of tooth extraction wisdom teeth History of tonsillectomy Family History Mother Thyroid cancer Father No problems noted. Denies family history of Ovarian cancer Prostate cancer Breast cancer Lung cancer Colorectal cancer Social History Smoking Status: Current every day smoker Tobacco Type: Cigarettes Age Started Using Tobacco: 14; packs per day: 0.5; Cigarettes Per Day: 6; Second Hand Exposure: No; Do You Dip or Chew Tobacco: No; Hx Alcohol Use: Yes Alcohol type: beer Alcohol Intake Frequency: 4 or More x per/Week Alcohol Intake Frequency Comment: 1-2 beers daily or QOD Hx Substance Use: No Preferred Language: Faroese Communication Ability: Effective Visual Impairment: Diminished Hearing Ability: Normal Electromechanical Engineer Required: No Beliefs That Will Affect Care: None marital status: Single Current Living Situation: Significant Other Current Living Situation Comment: lives with girlfriend current occupational status: retired How many Children do You have: 0 Feels Safe at Home: Yes Childhood Exposure to Second-Hand Smoke: No Diet: regular caffeine: Yes Dental Care, Regularly: Yes Physical Activity Frequency: Daily Physical Activity Frequency Comment: walking and yoga Seatbelt Use: always Sunscreen Use: Yes Do you think of yourself as: straight/heterosexual Assistive Devices: None Allergies Allergies Allergy/AdvReac Type Severity Reaction Status Date / Time amoxicillin Allergy Intermediate Rash Verified 12/10/24 11:36 doxycycline Allergy Mild Rash Unverified 12/10/24 11:36 Doxycycline Allergy Mild rash Uncoded 12/10/24 08:12 Home Meds Home Medications Medication Instructions Recorded Confirmed timolol maleate 0.5 % eye drops 1 drp OPB DAILY 12/10/21 12/10/24 Previous Rx's Medication Instructions Recorded aspirin 81 mg tablet,delayed 81 mg PO QAM #30 tabs 03/20/20 release nitroglycerin 0.4 mg sublingual 0.4 mg sublingual PRN PRN chest 12/25/22 tablet (Nitrostat) pain #20 tabs amlodipine 10 mg tablet 10 mg PO DAILY #90 tabs 07/25/24 carvedilol 6.25 mg tablet 6.25 mg PO BID #180 tabs 08/15/24 rosuvastatin 10 mg tablet 10 mg PO DAILY #90 tabs 10/24/24 clopidogrel 75 mg tablet 75 mg PO DAILY #30 tabs 11/01/24 ferrous sulfate 325 mg (65 mg 325 mg PO DAILY #30 tabs 11/06/24 iron) tablet clindamycin HCl 300 mg capsule 300 mg PO TID 7 days #21 caps 12/07/24 sulfamethoxazole 800 1 tab PO BID #14 tabs 12/07/24 mg-trimethoprim 160 mg tablet (Bactrim DS) Results & Data (ED) Vital Signs Vital Signs - 24 hr 12/10/24 09:09 12/10/24 09:14 12/10/24 09:18 Temperature 36.6 C Temperature Source Oral Pulse Rate 65 67 65 Pulse Rate from SpO2 Sensor 65 Respiratory Rate 16 14 Respiratory Effort / Characteristics Non-Labored Spontaneous Respiratory Depth Normal Respiratory Pattern Regular Blood Pressure 151/76 H 151/76 H Blood Pressure Mean 101 101 Pulse Oximetry 100 99 Oxygen Delivery Method Room Air Room Air Sepsis Recent Fever Within 48 Hours No Sepsis New/Unexplained Change in Mental Status N/A Sepsis Action Taken by Nursing No Action Required 12/10/24 10:37 Temperature Temperature Source Pulse Rate Pulse Rate from SpO2 Sensor Respiratory Rate Respiratory Effort / Characteristics Respiratory Depth Respiratory Pattern Blood Pressure Blood Pressure Mean Pulse Oximetry 99 Oxygen Delivery Method Room Air Sepsis Recent Fever Within 48 Hours Sepsis New/Unexplained Change in Mental Status Sepsis Action Taken by Nursing Laboratory Data 12/10/24 09:45 12/10/24 09:45 Lab Results 12/10/24 Range/Units 09:45 WBC 7.01 (4.8-10.8) K/ul RBC 4.24 L (4.70-6.10) M/uL Hgb 14.1 (14.0-18.0) g/dl Hct 42.6 (42.0-52.0) % MCV 100.5 H (80.0-100.0) fL MCH 33.3 (25.0-34.0) pg MCHC 33.1 (32.0-36.0) g/dL RDW Std Deviation 49.1 H (36.4-46.3) fL RDW Coeff of Cj 13.2 (11.5-14.5) % Plt Count 259 (130-400) K/uL MPV 9.2 L (9.4-12.4) fL Immature Gran % (Auto) 0.6 % Neut % (Auto) 67.8 % Lymph % (Auto) 13.7 % [place] % (Auto) 12.4 % Eos % (Auto) 4.6 % Baso % (Auto) 0.9 % Neut # (Auto) 4.76 (1.40-6.50) K/uL Lymph # (Auto) 0.96 L (1.20-3.40) K/uL [place] # (Auto) 0.87 H (0.11-0.59) K/uL Eos # (Auto) 0.32 (0.00-0.50) K/uL Baso # (Auto) 0.06 (0.00-0.20) K/uL Immature Gran # (Auto) 0.04 (0.01-0.20) K/uL Sodium 133 L (136-145) mmol/L Potassium 4.2 (3.5-5.1) mmol/L Chloride 101 (98-107) mmol/L Carbon Dioxide 25 (21-32) mmol/L Anion Gap 7 (3-11) BUN 11 (6-23) mg/dl Creatinine 0.74 (0.6-1.4) mg/dl Est Cr Clr Drug Dosing 103.3 ml/min eGFR 96.87 BUN/Creatinine Ratio 14.9 (10-20) Glucose 102 H (70-99(Fasting)) mg/dl Lactate 0.9 (0.4-2.0) mmol/L Calcium 9.2 (8.6-10.3) mg/dl Total Bilirubin 0.5 (0.2-1.0) mg/dl AST 16 (13-39) U/L ALT 8 (7-52) U/L Alkaline Phosphatase 88 (34-104) U/L C-Reactive Protein 3.23 H (0-0.5) mg/dl Total Protein 7.3 (6.0-8.3) gm/dl Albumin 4.4 (3.4-5.0) gm/dl Globulin 2.9 (2.5-4.0) gm/dl Albumin/Globulin Ratio 1.5 (0.9-2) Procalcitonin < 0.02 (0-0.5) ng/ml Administered Medications Vancomycin HCl 2,250 mg/ (Sodium Chloride) 545 mls @ 200 mls/hr IV NOW ONE Stop: 12/10/24 12:16 Last Admin: 12/10/24 10:25 Dose: 200 mls/hr Documented By: Infusion: 12/10/24 10:25 Dose: Infused Documented By: Admin: 12/10/24 10:23 Dose: 200 mls/hr Documented By: BHARATI Discharge Plan Visit Data Chief Complaint: Infection, Wound Stated Complaint: LT HAND INFECTION, DOG BITE WED ED Provider: Devorah Gore Discharge Problem: Cellulitis of hand, left Forms Stand Alone Forms: My [facility] Prescriptions Prescriptions: No Action amlodipine 10 mg tablet 10 mg PO DAILY Qty: 90 3RF carvedilol 6.25 mg tablet 6.25 mg PO BID Qty: 180 3RF Rx Instructions: must administer with a meal/food rosuvastatin 10 mg tablet 10 mg PO DAILY Qty: 90 3RF clopidogrel 75 mg tablet 75 mg PO DAILY Qty: 30 6RF timolol maleate 0.5 % drops 1 drp OPB DAILY Rx Instructions: both eyes nitroglycerin [Nitrostat] 0.4 mg tablet, sublingual 0.4 mg sublingual PRN PRN (Reason: chest pain) Qty: 20 3RF Rx Instructions: every 5 mins up to 3 doses. If chest pain is unrelieved 5 minutes after 1 dose, call aspirin 81 mg Tablet,Delayed Release (Dr/Ec) 81 mg PO QAM Qty: 30 0RF ferrous sulfate 325 mg (65 mg iron) tablet 325 mg PO DAILY Qty: 30 2RF Rx Instructions: purchase [id number] clindamycin HCl 300 mg capsule 300 mg PO TID 7 Days Qty: 21 0RF Rx Instructions: Start Date 12/07/24 pt unsure of day supply sulfamethoxazole-trimethoprim [Bactrim DS] 800-160 mg tablet 1 tab PO BID Qty: 14 0RF Rx Instructions: Start Date 12/07/24, pt unsure of day supply Referrals Referrals: Arpit Alvarado DO [Primary Care Provider] -
[2024-12-10 10:01] LABS: Basophils # (auto) 0.06 K/uL (0.00-0.20); Basophils % (auto) 0.9 %; Eosinophils # (auto) 0.32 K/uL (0.00-0.50); Eosinophils % (auto) 4.6 %; Hematocrit (blood only) 42.6 % (42.0-52.0); Hemoglobin 14.1 g/dl (14.0-18.0); Immature Granulocytes # (auto) 0.04 K/uL (0.01-0.20); Immature Granulocytes % (auto) 0.6 %; Lymphocytes # (auto) 0.96 K/uL (1.20-3.40); Lymphocytes % (auto) 13.7 %; Mean Corpuscular Hemoglobin 33.3 pg (25.0-34.0); Mean Corpuscular Hgb Conc 33.1 g/dL (32.0-36.0); Mean Corpuscular Volume 100.5 fL (80.0-100.0); Mean Platelet Volume 9.2 fL (9.4-12.4); Monocytes # (auto) 0.87 K/uL (0.11-0.59); Monocytes % (auto) 12.4 %; Neutrophils # (auto) 4.76 K/uL (1.40-6.50); Neutrophils % (auto) 67.8 %; Platelet Count 259 K/uL (130-400); RDW Coefficient of Variation 13.2 % (11.5-14.5); RDW Standard Deviation 49.1 fL (36.4-46.3); Red Blood Count 4.24 M/uL (4.70-6.10); White Blood Count 7.01 K/ul (4.8-10.8)
[2024-12-10] MEDS: VANCOMYCIN HCL 2,250 MG in SODIUM CHLORIDE 0.9% 500 ML IV ONE (10:23)
[2024-12-10 10:28] LABS: Albumin Globulin Ratio 1.5 (0.9-2); Albumin Level 4.4 gm/dl (3.4-5.0); BUN Creatinine Ratio 14.9 (10-20); Bilirubin,Total 0.5 mg/dl (0.2-1.0); C Reactive Protein 3.23 mg/dl (0-0.5); Calcium 9.2 mg/dl (8.6-10.3); Creatinine Clr Calc Pharmacy 103.3 ml/min; Globulin 2.9 gm/dl (2.5-4.0); Potassium 4.2 mmol/L (3.5-5.1); Total Protein 7.3 gm/dl (6.0-8.3)
--- NOTE | 2024-12-10 12:20 | History & Physical Report ---
Date of Service December 10, 2024 Assessment & Plan (1) Cellulitis of hand, left: Plan: Acute secondary to dog bite sustained on 12/07 -Admit to med/surg unit -Regular diet -OOB as tolerated -VS as per unit protocol -Obtain MRI of hand w/ and w/o contrast -Removed 11 sutures at pt bedside in the ER and irrigated with copious amount of saline -pat dry, cover with nonstick dressing and wrap with gauze -consult battery assembler, appreciate assistance -Per UTD recommendations, tx with Levaquin and Flagyl. If fails to respond in 24-48 hours, consider adding MRSA coverage but do not feel it is needed at this time (2) Hypertension: Plan: Chronic -Continue coreg and amlodipine (3) Coronary artery disease: Plan: Chronic -Continue aspirin, coreg, and rosuvastatin Plan DVT ppx with Lovenox. AM labs have been ordered including cbc, bmp and mag level. Counseled pt regarding tobacco cessation as this can significantly contribute to poor wound healing and should also increase protein in diet. Plan has been d/w Dr. Calhoun who has also seen and evaluated this patient. Further orders will be implemented as clinically warranted by attending. History of Present Illness Chief Complaint: Left hand swelling and redness following dog bite Primary Care Provider: DO Alessandro Steel is a 69 yo M with a pmhx of HTN, etoh use, PAD, DLD, and tobacco use who presents to the ER today c/o redness and swelling of his left hand. He reports that he sustained a dog bite while his girlfriend's two dogs (a great luis a and a poodle mix) were in a fight over food. He broke the dogs up and in the process, the poodle bit his left and and wrist. He presented to the ER on 12/07 where he underwent irrigation and wrist radiograph which did not demonstrate any evidence of foreign bodies or other acute injury. He has allergies to doxycycline and amoxicillin and subsequently underwent suture repair of his laceration and was discharged home on a course of Bactrim and Clindamycin. Despite keeping the wound clean and dry and taking his antibiotics as prescribed, he has had increased redness, swelling and pain in his left hand/wrist. He presented to the ER today for evaluation. He is afebrile and has a normal wbc count. His CRP is elevated at 3.23. PCT is normal and his remaining labs are normal. He was treated with a dose of Vancomycin, Rocephin, and Flagyl in the ER and has been referred to hospital medicine team for admission due to failing outpatient antibiotics. No imaging was performed in the ER. Allergies Allergy/AdvReac Type Severity Reaction Status Date / Time amoxicillin Allergy Intermediate Rash Verified 12/10/24 11:36 doxycycline Allergy Mild Rash Unverified 12/10/24 11:36 Home Medications Medication Instructions Recorded Confirmed Type aspirin 81 mg tablet,delayed 81 mg PO QAM #30 tabs 03/20/20 12/10/24 Rx release timolol maleate 0.5 % eye drops 1 drp OPB DAILY 12/10/21 12/10/24 History nitroglycerin 0.4 mg sublingual 0.4 mg sublingual PRN PRN chest 12/25/22 12/10/24 Rx tablet (Nitrostat) pain #20 tabs amlodipine 10 mg tablet 10 mg PO DAILY #90 tabs 07/25/24 12/10/24 Rx carvedilol 6.25 mg tablet 6.25 mg PO BID #180 tabs 08/15/24 12/10/24 Rx rosuvastatin 10 mg tablet 10 mg PO DAILY #90 tabs 10/24/24 12/10/24 Rx clopidogrel 75 mg tablet 75 mg PO DAILY #30 tabs 11/01/24 12/10/24 Rx ferrous sulfate 325 mg (65 mg 325 mg PO DAILY #30 tabs 11/06/24 12/10/24 Rx iron) tablet clindamycin HCl 300 mg capsule 300 mg PO TID 7 days #21 caps 12/07/24 12/10/24 Rx sulfamethoxazole 800 1 tab PO BID #14 tabs 12/07/24 12/10/24 Rx mg-trimethoprim 160 mg tablet (Bactrim DS) Past Med/Surg History Problem List (Updated 12/10/24 @ 11:39 by Devorah Gore MD) Cellulitis of hand, left (Acute) Dog bite (Acute) Laceration of left wrist (Acute) Arterial insufficiency with ischemic ulcer (Acute) Pain, lower leg S/P vascular surgery Acute blood loss anemia Hyponatremia Cellulitis (Acute) Arterial leg ulcer Lower extremity arterial insufficiency, severe, left (Acute) Screening for lung cancer Hypertension Alcohol use disorder Thrombocytopenia Dyslipidemia (Acute) Medical History PAD (peripheral artery disease) Coronary artery disease Cirrhosis Current smoker Colon cancer screening FIT test 2019,05/2022. Colonoscopy 04/21/23 - Tubular adenoma STEMI (ST elevation myocardial infarction) Hepatitis C Completed Treatment Psoriasis Cataract, bilateral Surgical History H/O colonoscopy 04/2023 Repeat 1 yr,[facility] [place] History of cataract surgery History of tooth extraction wisdom teeth History of tonsillectomy Family History Mother Thyroid cancer Father No problems noted. Denies family history of Ovarian cancer Prostate cancer Breast cancer Lung cancer Colorectal cancer Social History Smoking Status: Current every day smoker Tobacco Type: Cigarettes Age Started Using Tobacco: 14; packs per day: 0.5; Cigarettes Per Day: 6; Second Hand Exposure: No; Do You Dip or Chew Tobacco: No; Hx Alcohol Use: Yes Alcohol type: beer Alcohol Intake Frequency: 4 or More x per/Week Alcohol Intake Frequency Comment: 1-2 beers daily or QOD Hx Substance Use: No Preferred Language: Luxembourger Communication Ability: Effective Visual Impairment: Diminished Hearing Ability: Normal Blindstitch Hemmer Required: No Beliefs That Will Affect Care: None marital status: Single Current Living Situation: Significant Other Current Living Situation Comment: lives with girlfriend current occupational status: retired How many Children do You have: 0 Feels Safe at Home: Yes Childhood Exposure to Second-Hand Smoke: No Diet: regular caffeine: Yes Dental Care, Regularly: Yes Physical Activity Frequency: Daily Physical Activity Frequency Comment: walking and yoga Seatbelt Use: always Sunscreen Use: Yes Do you think of yourself as: straight/heterosexual Assistive Devices: None Review of Systems 2 Review of Systems: All systems reviewed and are unremarkable except as noted in HPI and below. Denies fever, chills, fatigue, headache, nasal congestion, sore throat, cough, chest pain, shortness of breath, palpitations, orthopnea, PND, abdominal pain, n/v/d, constipation, dysuria, hematuria, frequency, back pain, easy bruising or bleeding. Physical Exam 2 Physical Exam: GENERAL: 69 yo well-nourished WM. No distress. EYES: EOMI. PERRLA. Anicteric. HENT: Moist mucous membranes. No cervical lymphadenopathy. LUNGS: Clear to auscultation bilaterally. No W/R/R. CARDIOVASCULAR: Regular rate and rhythm. ABDOMEN: Soft, non-tender and non-distended. BS normoactive x 4 quad. EXTREMITIES: No edema. Non-tender. Peripheral pulses +2/4. NEUROLOGIC: A&O x3. PSYCHIATRIC: Cooperative. Appropriate mood and affect. SKIN: Erythema and edema on dorsal aspect of left hand and and wrist. Erythema extending from sutured laceration with serosanguineous discharge. TTP. Results & Data Results & Data Vital Signs (Past 12 Hours) Vital Signs Temp Pulse Resp BP Pulse Ox O2 Del Method 12/10/24 10:37 99 Room Air 12/10/24 09:18 65 14 151/76 H 99 Room Air 12/10/24 09:14 67 12/10/24 09:09 36.6 C 65 16 151/76 H 100 Room Air Laboratory Results 12/10/24 09:45 12/10/24 09:45 Supervising Physician Co-Signing Physician Notes The patient was seen by me. The chart was reviewed. Case discussed with CANDI Burris. Agree with assessment and plan. PG Care Time/CCT Total # of Minutes Spent Total Time Spent with Patient: Total time spent is greater than 50% in coordination of care (as documented) at patient's floor/unit and/or counseling patient: 77 minutes Coding Level of Care Code 33892 INT INP/OBS CARE 3/75MIN Diagnoses Cellulitis of hand, left L03.114 Hypertension I10 Coronary artery disease I25.10 Associated angina: without angina Coronary Disease-Associated Artery/Lesion type: unspecified vessel or lesion type Nikolai vs. transplanted heart: nome heart (3) Coronary artery disease Associated angina: without angina Coronary Disease-Associated Artery/Lesion type: unspecified vessel or lesion type Nikolai vs. transplanted heart: nome heart Qualified Code(s): I25.10 - Atherosclerotic heart disease of nome coronary artery without angina pectoris
[2024-12-10] MEDS: metroNIDAZOLE 500 MG/100 ML BAG IV STA (12:33)
[2024-12-10] MEDS ORDERED: MAGNESIUM HYDROXIDE SUSP 30 ML UDC PO PRN (14:07)
[2024-12-10] MEDS ORDERED: ALUMINUM/MAGNESIUM SUSP 30 ML UDC PO PRN (14:07)
[2024-12-10] MEDS ORDERED: ONDANSETRON INJ 2 MG/ML 2 ML VIAL IV PRN (14:07)
[2024-12-10] MEDS ORDERED: MELATONIN 3 MG TAB PO PRN (14:07)
[2024-12-10] MEDS ORDERED: ACETAMINOPHEN 325 MG TAB PO PRN (14:07)
--- NOTE | 2024-12-10 14:19 | Magnetic Resonance Report ---
MRI OF THE LEFT WRIST WITHOUT CONTRAST CLINICAL HISTORY: Infected dog bite wound. COMPARISON STUDY: Left wrist radiographs December 07, 2024. TECHNIQUE: Utilizing a 3 Uma magnet and dedicated coil, multiplanar, multi echo imaging of the left wrist was performed without intravenous contrast. Study was ordered with and without contrast howeve r the patient was unable to tolerate postcontrast imaging. FINDINGS: Alignment of the left wrist is anatomic. There are no fractures within the left wrist. Dist al left radius and ulna are intact. There is severe joint space narrowing with osteophytosis of the l eft first carpometacarpal joint. Cystic foci within the base of the left first metacarpal are degener ative. There is a complex joint effusion of the left first carpometacarpal joint which is also likely degenerative. Extensive dorsal hand and distal wrist subcutaneous fluid is present. No fluid collect ion is identified on unenhanced exam. Sensitivity for detection of soft tissue gas is diminished by M RI. Visualized flexor and extensor tendons are intact. There is slight increased fluid within severa l extensor tendon sheaths at the level of the metacarpals. Flexor tendon sheaths are unremarkable. A small amount of fluid within the distal radioulnar joint is likely degenerative. IMPRESSION: 1. Extensive dorsal subcutaneous fluid within the left hand and distal left wrist consistent with virgilio lulitis. No fluid collection to suggest abscess. 2. No evidence for acute osteomyelitis. 3. Slight increased fluid within several extensor tendon sheaths. This may be reactive although devel oping infectious synovitis cannot be completely excluded. 4. 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 ACT 112: Negative or not required by law. Electronically signed by: Herman King M.D. 12/10/2024 2:17 PM
[2024-12-10] MEDS: cefTRIAXone SODIUM 2,000 MG/50 ML BAG IV STA (15:30)
[2024-12-10] MEDS: levoFLOXacin/D5W 750 MG/150 ML BAG IV SCH (16:02)
[2024-12-10] MEDS: carvediloL 6.25 MG TAB PO SCH (20:06)
[2024-12-10] MEDS: metroNIDAZOLE 500 MG/100 ML BAG IV SCH (20:06)
[2024-12-11 07:08] LABS: Basophils # (auto) 0.05 K/uL (0.00-0.20); Basophils % (auto) 0.8 %; Eosinophils # (auto) 0.34 K/uL (0.00-0.50); Eosinophils % (auto) 5.5 %; Hematocrit (blood only) 36.3 % (42.0-52.0); Hemoglobin 12.4 g/dl (14.0-18.0); Immature Granulocytes # (auto) 0.02 K/uL (0.01-0.20); Immature Granulocytes % (auto) 0.3 %; Lymphocytes % (auto) 17.9 %; Mean Corpuscular Hemoglobin 34.1 pg (25.0-34.0); Mean Corpuscular Hgb Conc 34.2 g/dL (32.0-36.0); Mean Corpuscular Volume 99.7 fL (80.0-100.0); Mean Platelet Volume 9.5 fL (9.4-12.4); Monocytes # (auto) 0.97 K/uL (0.11-0.59); Monocytes % (auto) 15.8 %; Neutrophils # (auto) 3.66 K/uL (1.40-6.50); Neutrophils % (auto) 59.7 %; Platelet Count 242 K/uL (130-400); RDW Coefficient of Variation 12.8 % (11.5-14.5); RDW Standard Deviation 47.5 fL (36.4-46.3); Red Blood Count 3.64 M/uL (4.70-6.10); White Blood Count 6.14 K/ul (4.8-10.8)
[2024-12-11 07:24] LABS: BUN Creatinine Ratio 12.5 (10-20); Calcium 8.9 mg/dl (8.6-10.3); Creatinine Clr Calc Pharmacy 97.2 ml/min; Magnesium 2.2 mg/dl (1.7-2.4); Potassium 4.1 mmol/L (3.5-5.1)
[2024-12-11] MEDS: amLODIPine BESYLATE 5 MG TAB PO SCH (09:03)
[2024-12-11] MEDS: CLOPIDOGREL BISULFATE 75 MG TAB PO SCH (09:03)
[2024-12-11] MEDS: ROSUVASTATIN CALCIUM 10 MG TAB PO SCH (09:03)
[2024-12-11] MEDS: ASPIRIN 81 MG ECTAB PO SCH (09:03)
[2024-12-11] MEDS: TIMOLOL MALEATE 0.5% OP SOLN 5 ML BTL OPB SCH (09:04)
[2024-12-11] MEDS: ENOXAPARIN INJ 40 MG/0.4 ML SYR SQ SCH (09:07)
[2024-12-11] MEDS: levoFLOXacin/D5W 750 MG/150 ML BAG IV SCH (09:10)
--- NOTE | 2024-12-11 10:17 | Hospitalist Progress Note ---
Date of Service December 11, 2024 Assessment & Plan (1) Cellulitis of hand, left: Plan: Acute, secondary to dog bite sustained on 12/07. He was on clindamycin and oral Bactrim as an outpatient with apparent failure. He is now on intravenous Levaquin and Flagyl. Wrist MRI scan negative for abscess or osteomyelitis. He is now on intravenous Levaquin and Flagyl, day 2. He is afebrile with normal white blood cell count. Multiple sutures were removed from the laceration on admission. It is now healing by secondary intention (2) Hypertension: Plan: Stable. Continue coreg and amlodipine (3) Coronary artery disease: Plan: Stable. Continue aspirin, coreg, and rosuvastatin Plan Hopeful discharge to home tomorrow, December 12, on oral Levaquin and Flagyl. Admission and Anticipated Discharge Date Admission Date: December 10, 2024 Subjective Hemodynamically stable. Afebrile. Wrist MRI negative for abscess or osteomyelitis. He is now on Levaquin and Flagyl, day 2. He apparently failed outpatient clindamycin and Bactrim. He feels as if the swelling is increased in his left hand but I cannot see any change. Hopefully he can go home tomorrow, December 12, on oral Levaquin and Flagyl. Review of Systems 2 Review of Systems: Constitutionalno fever or chills ENTno blurred vision, no double vision, no epistaxis, no sore throat Respiratoryno cough, no wheezing, no shortness of breath Cardiacno palpitations, no chest pain, no syncope Aaron nausea, vomiting, diarrhea, melena, hematochezia GUno urinary retention, no urinary incontinence, no dysuria, no hematuria Musculoskeletalleft hand and wrist are bandaged. Normal capillary refill in left fingertips Skinno rashes Neurono isolated weakness, no paresthesia Psychno depression, no anxiety Physical Exam 2 Physical Exam: General-alert and oriented x3, no fever, no chills HEENT-head atraumatic and normocephalic, pupils equal and reactive to light, extraocular muscles intact Neck-no lymphadenopathy or thyromegaly, trachea midline Chest-clear to auscultation. No rales, wheezing or rhonchi Cardiac-regular rate and rhythm, normal S1 and S2 Abdomen-normal bowel sounds, no hepatosplenomegaly Dvlsfcepijl-F-obmmys laceration dorsal aspect of left wrist is now healing by secondary intention after multiple sutures removed on admission. Cellulitic process with swelling and mild erythema noted about the laceration site with some swelling Neuro-cranial nerves II through XII intact, motor and sensory function within normal limits, strength symmetrical, no focal deficits Psych-normal affect, normal mood Results & Data Results & Data Vital Signs (Past 12 Hours) Vital Signs Temp Pulse Resp BP Pulse Ox O2 Del Method 12/11/24 07:45 36.3 C L 75 18 121/54 L 99 Room Air Laboratory Results 12/11/24 06:40 12/11/24 06:39 PG Care Time/CCT Total # of Minutes Spent Total Time Spent with Patient: Total time spent is greater than 50% in coordination of care (as documented) at patient's floor/unit and/or counseling patient: Coding Level of Care Code 96941 SUB INP/OBS CARE 2/35MIN Diagnoses Cellulitis of hand, left L03.114 Hypertension I10 Coronary artery disease I25.10 Associated angina: without angina Coronary Disease-Associated Artery/Lesion type: unspecified vessel or lesion type [place] vs. transplanted heart: [place] heart (3) Coronary artery disease Associated angina: without angina Coronary Disease-Associated Artery/Lesion type: unspecified vessel or lesion type [place] vs. transplanted heart: [place] heart Qualified Code(s): I25.10 - Atherosclerotic heart disease of [place] coronary artery without angina pectoris
[2024-12-12 07:38] LABS: BUN Creatinine Ratio 12.7 (10-20); Calcium 8.8 mg/dl (8.6-10.3); Creatinine Clr Calc Pharmacy 88.6 ml/min; Potassium 3.7 mmol/L (3.5-5.1)
[2024-12-12 07:39] LABS: Basophils # (auto) 0.06 K/uL (0.00-0.20); Basophils % (auto) 0.9 %; Eosinophils # (auto) 0.32 K/uL (0.00-0.50); Eosinophils % (auto) 4.9 %; Hematocrit (blood only) 37.2 % (42.0-52.0); Hemoglobin 12.7 g/dl (14.0-18.0); Immature Granulocytes # (auto) 0.02 K/uL (0.01-0.20); Immature Granulocytes % (auto) 0.3 %; Lymphocytes # (auto) 1.12 K/uL (1.20-3.40); Mean Corpuscular Hemoglobin 34.3 pg (25.0-34.0); Mean Corpuscular Hgb Conc 34.1 g/dL (32.0-36.0); Mean Corpuscular Volume 100.5 fL (80.0-100.0); Mean Platelet Volume 9.6 fL (9.4-12.4); Monocytes # (auto) 0.98 K/uL (0.11-0.59); Monocytes % (auto) 14.9 %; Neutrophils # (auto) 4.08 K/uL (1.40-6.50); Platelet Count 259 K/uL (130-400); RDW Coefficient of Variation 12.8 % (11.5-14.5); RDW Standard Deviation 48.2 fL (36.4-46.3); White Blood Count 6.58 K/ul (4.8-10.8)
[2024-12-12 08:04] VITALS: RESP 16
[2024-12-12] MEDS ORDERED: FERROUS SULFATE 325 MG TAB PO SCH (09:00)
[2024-12-12] MEDS: FERROUS SULFATE 325 MG TAB PO SCH (09:04)
[2024-12-12 12:26] VITALS: TEMP 98.1; O2SAT 98
[2024-12-12] MEDS: metroNIDAZOLE 500 MG TAB PO SCH (13:40)
--- NOTE | 2024-12-12 14:13 | Discharge Summary ---
Discharge Summary Date of Service December 12, 2024 Principal Dx & Hospital Course #1 = Principal Diagnosis (1) Cellulitis of hand, left: Acute, secondary to dog bite sustained on 12/07. He was on clindamycin and oral Bactrim as an outpatient with apparent failure. He is now on intravenous Levaquin and Flagyl. Wrist MRI scan negative for abscess or osteomyelitis. He is afebrile with normal white blood cell count. Multiple sutures were removed from the laceration on admission. It is now healing by secondary intention transitioned to PO Flagyl/Levaquin 12/12, discharged home with additional 12 days to complete 14 day course. Sent w/ probiotic. Would evaluated patient & he is to use Aquacel Ag every 3 days and change bandage. patient routinely follows w/ wound outpatient for his LE wounds & was informed to follow up with them for this as well. (2) Hypertension: Stable. Continue coreg and amlodipine (3) Coronary artery disease: Stable. Continue aspirin, coreg, and rosuvastatin Plan Discharged home 12/12. Admission HPI Per Admitting Provider Alessandro is a 69 yo M with a pmhx of HTN, etoh use, PAD, DLD, and tobacco use who presents to the ER today c/o redness and swelling of his left hand. He reports that he sustained a dog bite while his girlfriend's two dogs (a great luis a and a poodle mix) were in a fight over food. He broke the dogs up and in the process, the poodle bit his left and and wrist. He presented to the ER on 12/07 where he underwent irrigation and wrist radiograph which did not demonstrate any evidence of foreign bodies or other acute injury. He has allergies to doxycycline and amoxicillin and subsequently underwent suture repair of his laceration and was discharged home on a course of Bactrim and Clindamycin. Despite keeping the wound clean and dry and taking his antibiotics as prescribed, he has had increased redness, swelling and pain in his left hand/wrist. He presented to the ER today for evaluation. He is afebrile and has a normal wbc count. His CRP is elevated at 3.23. PCT is normal and his remaining labs are normal. He was treated with a dose of Vancomycin, Rocephin, and Flagyl in the ER and has been referred to hospital medicine team for admission due to failing outpatient antibiotics. No imaging was performed in the ER. Discharge Exam Constitutional WD/WN, vitals as above Eyes PERRL, conjunctivae normal, anicteric sclerae Respiratory breathing unlabored Cardiovascular well perfused Skin open wound left anterior surface of hand, sutures present. Mild erythema and edema surrounding wound. Wound appeared w/o drainage. Psychiatric A+Ox3, euthymic affect Discharge Plan Discharge Items Patient Disposition: Home - Self-Care Reason For Visit: INFECTED DOG BITE WOUND Discharge Diagnosis: Hand cellulitis, dog bite Activity: Resume your previous activity Non-emergency contact: Primary Care Provider Call non-emergency contact if: you have any medication questions, your pain is concerning for you and you have a fever Follow-up/Referrals: Arpit Alvarado, [Primary Care Provider] - Diet: Regular Addtl Attending Provider Instructions: Mr. Robert, You were recently hospitalized for an infection of your hand that came from a dog bite. You were treated with IV antibiotics and then transitioned to oral antibiotics prior to discharge. You had imaging that revealed there was no abscess or bone infection in your hand. Please see recommendations below regarding your discharge. Please take Levaquin once daily for the next 12 days. Your first dose at home will be tomorrow, 12/12. Please take Flagyl 500mg three times daily for the next 12 days. Your first dose at home will be this evening, 12/12. Please avoid alcohol while taking Flagyl Please take these antibiotics with a probiotic and food to avoid GI upset. Please follow up with the wound clinic on discharge. For your wound please avoid getting it wet. Please use Aquacel Ag on your wound and change every 3 days. The remainder of your outpatient medications may be resumed. Please follow up with your PCP within 1-2 weeks of discharge. If you develop any fever, chills, chest pain, shortness of breath please report back to the ER for further care. Sincerely, Zainab Morales PA-C Pending Studies at Discharge: No Stand-Alone Forms: My [employer], Smoking Cessation Medications and DC Order Prescriptions: New metronidazole 500 mg tablet 500 mg PO TID 12 Days Qty: 36 0RF levofloxacin 750 mg tablet 750 mg PO DAILY 12 Days Qty: 12 0RF Probiotic 15 billion cell capsule, sprinkle 1 cap PO DAILY 12 Days Qty: 12 0RF Rx Instructions: do not crush/chew/cut; swallow whole OR may open and sprinkle in cold drink/food Continued amlodipine 10 mg tablet 10 mg PO DAILY Qty: 90 3RF carvedilol 6.25 mg tablet 6.25 mg PO BID Qty: 180 3RF Rx Instructions: must administer with a meal/food rosuvastatin 10 mg tablet 10 mg PO DAILY Qty: 90 3RF clopidogrel 75 mg tablet 75 mg PO DAILY Qty: 30 6RF timolol maleate 0.5 % drops 1 drp OPB DAILY Rx Instructions: both eyes nitroglycerin [Nitrostat] 0.4 mg tablet, sublingual 0.4 mg sublingual PRN PRN (Reason: chest pain) Qty: 20 3RF Rx Instructions: every 5 mins up to 3 doses. If chest pain is unrelieved 5 minutes after 1 dose, call aspirin 81 mg Tablet,Delayed Release (Dr/Ec) 81 mg PO QAM Qty: 30 0RF ferrous sulfate 325 mg (65 mg iron) tablet 325 mg PO DAILY Qty: 30 2RF Rx Instructions: purchase [id number]-qdivcas Discontinued clindamycin HCl 300 mg capsule 300 mg PO TID 7 Days Qty: 21 0RF Rx Instructions: Start Date 12/07/24 pt unsure of day supply sulfamethoxazole-trimethoprim [Bactrim DS] 800-160 mg tablet 1 tab PO BID Qty: 14 0RF Rx Instructions: Start Date 12/07/24, pt unsure of day supply Discharge Orders: Discharge Order (Routine); Ordered 12/12/24 Ordered By: Zainab Morales Admission Data Admit Date/Time: 12/10/24 12:04 Attending Provider: Festus Chappell Admit Provider: Ajay Calhoun Primary Care Provider: Arpit Alvarado Other Providers: Ajay Calhoun Hospital Stay Data Consultations 12/10/24 11:24 ED Decision to Admit Stat Diagnostic Imagining Performed 12/10/24 12:04 MR wrist LT wo con Stat Pending Results Patient Have Any Pending Studies at Discharge: No Discharge Instructions Given to Patient (Per Discharging Provider) Mr. Robert, You were recently hospitalized for an infection of your hand that came from a dog bite. You were treated with IV antibiotics and then transitioned to oral antibiotics prior to discharge. You had imaging that revealed there was no abscess or bone infection in your hand. Please see recommendations below regarding your discharge. Please take Levaquin once daily for the next 12 days. Your first dose at home will be tomorrow, 12/12. Please take Flagyl 500mg three times daily for the next 12 days. Your first dose at home will be this evening, 12/12. Please avoid alcohol while taking Flagyl Please take these antibiotics with a probiotic and food to avoid GI upset. Please follow up with the wound clinic on discharge. For your wound please avoid getting it wet. Please use Aquacel Ag on your wound and change every 3 days. The remainder of your outpatient medications may be resumed. Please follow up with your PCP within 1-2 weeks of discharge. If you develop any fever, chills, chest pain, shortness of breath please report back to the ER for further care. Sincerely, Zainab Morales PA-C Total Time Total Time Spent Total Time Spent (In Minutes): 50 Total Time Includes: Examination of the Patient, Discharge Planning, Medication Reconciliation and Communication With Other Providers Coding Level of Care Code 75628 INP/OBS DISCH >30 MIN Diagnoses Cellulitis of hand, left L03.114 Hypertension I10 Coronary artery disease I25.10 Associated angina: without angina Coronary Disease-Associated Artery/Lesion type: unspecified vessel or lesion type [place] vs. transplanted heart: [place] heart
[2024-12-12] MEDS: levoFLOXacin 750 MG TAB PO SCH (14:43)
[2024-12-12 14:55] VITALS: BP 121/54; PULSE 66
[2024-12-12] MEDS ORDERED: levoFLOXacin 750 MG TAB PO SCH (16:00)
== END 2024-12-12 16:15 | disposition home or self-care (01) | DRG 603 ==
LOC: ED 09:02 → SUATTDRO 12:04 → 3N 12:04